=== PATIENT | male | born 1945 | race Caucasian/White ===

== ENCOUNTER 2020-02-11 22:37 | Observation (INO) | payer OTHER, SELFPAY ==
--- NOTE | ~2020-02-11 | CT_ITS ---
EXAMINATION: CT lumbar spine wo con, CT pelvis wo con DATE: 02/11/2020 23:13 INDICATION: Chronic low back pain since fall 2-3 months prior TECHNIQUE: 1. Computed tomography (CT) of the lumbar spine was performed without intravenous contrast. Automated exposure control and iterative reconstruction technique were employed. The dose-length product was 1 548.03 mGy-cm. 2. CT of the pelvis was performed without intravenous contrast. Automated exposure control and iterat vicente reconstruction technique were employed. The dose length product was 1130.46 mGy-cm. COMPARISON: None FINDINGS: Pelvis: Bone alignment is normal. Mild osteoarthritis at the bilateral hips and mild to moderate osteoarthrit is at the bilateral sacroiliac joints. There are likely degenerative small chronic appearing ossicles along the anterior margin of the right sacroiliac joint as well as along the posterior rim of the ri ght acetabulum with corticated margins to the adjacent bones with no appreciable donor site to sugges t acute fracture. No acute fractures identified. No hip joint effusions or evident hematomas in the p albina. Small fat-containing umbilical hernia. The appendix and visualized portions of the bowels are normal. Bladder is normal. Scattered vascular calcifications in the pelvis and proximal thighs. Skin thickening and subcutaneous edema along the anterior lower pelvic and is consistent with cellulitis. No pathologically enlarged pelvic or inguinal lymphadenopathy. Lumbar spine: Alignment is normal. Chronic mild anterior wedging at T12. Additional chronic appearing Schmorl's nod e/focal mild superior endplate compression fracture at the right anterior side of the L1 vertebral cuco dy. Moderate to severe disc height loss at T11-T12, L2-L3 and L5-S1, moderate disc height loss at T12 -L1 and L1-L2 and mild disc height loss at L2-L3 and L4-L5. The following disc levels are specificall y discussed: T11-T12: Disc is bulging. There is moderate bilateral facet joint osteoarthritis. There is mild bilat eral neural foraminal stenosis. There is mild central canal stenosis. T12-L1: Disc is mildly bulging. There is moderate left and mild right facet joint osteoarthritis. The re is mild right and minimal left neural foraminal stenosis. There is mild central canal stenosis. L1-L2: Disc is bulging. There is mild left and moderate right facet joint osteoarthritis. There is mi ld bilateral neural foraminal stenosis. There is mild central canal stenosis. L2-L3: Posterior disc osteophyte complex including subtle calcification at the periphery of a likely disc extrusion posterior to the inferior aspect of the L2 vertebral body. There is mild bilateral fac et joint osteoarthritis. There is moderate bilateral neural foraminal stenosis. There is moderate to severe central canal stenosis. L3-L4: Disc is bulging. There is severe right and moderate left facet joint osteoarthritis. There is moderate bilateral neural foraminal stenosis. There is severe central canal stenosis. L4-L5: Disc is bulging. There is moderate left and severe right facet joint osteoarthritis. There is moderate bilateral neural foraminal stenosis. There is severe central canal stenosis. L5-S1: Posterior disc osteophyte complex. There is severe right and moderate left facet joint osteoar thritis. There is moderate to severe right and mild to moderate left neural foraminal stenosis. There is mild to moderate central canal stenosis. IMPRESSION: 1. Severe lumbar spondylosis and chronic Schmorl's node/focal superior endplate compression fracture at L1. No acute osseous abnormality. 2. Polyarticular osteoarthritis, mild at the bilateral hips and mild to moderate at the bilateral sac roiliac joints. Reviewed, dictated and finalized at location A. Electronically signed by Mike Gasca M.D.
--- NOTE | ~2020-02-11 | US_ITS ---
EXAMINATION: US venous doppler LE EXAM DATE: 02/14/2020 17:44 INDICATION: Bilateral leg swelling. TECHNIQUE: Multiple grayscale, color flow and Doppler images of the lower extremity deep venous syste ms bilaterally were obtained and reviewed. Comparison is made to prior examination from 07/03/2013. Co rrelation was made with CT abdomen pelvis 02/11/2020. FINDINGS: Right side: The right common femoral, femoral and profunda veins demonstrate normal color flow, respi ratory variation, augmentation and compressibility. Compressibility, color flow confirmed within the right popliteal, posterior tibial, peroneal, and greater saphenous veins. Left side: The left common femoral, femoral and profunda veins demonstrate normal color flow, respira tory variation, augmentation and compressibility. Compressibility, color flow confirmed within the l eft popliteal, posterior tibial, peroneal, and greater saphenous veins. Superficial to the left mid femoral vein there is a complex heterogeneous partially cystic avascular region measuring 3.7 x 1.8 x 2.9 cm. Appearance most consistent with hematoma. This region may not have been imaged on the pelvic CT. IMPRESSION: 1. No lower extremity deep venous thrombosis bilaterally. 2. Superficial left mid thigh partially cystic region most likely focal hematoma. Reviewed, dictated and finalized at location A. IMPRESSION: 1. No lower extremity deep venous thrombosis bilaterally. 2. Superficial left mid thigh partially cystic region most likely focal hemato ma.
[2020-02-11 22:36] VITALS: BP 236/97; PULSE 99; RESP 22; TEMP 36.8; O2SAT 96
--- NOTE | 2020-02-11 23:18 | ED.BACK ---
HPI - Back Pain/Injury General Chief Complaint: Back Pain/Injury Stated Complaint: back pain x 2 months Time Seen by Provider: 02/11/20 22:45 Source: patient and RN notes reviewed (Disagree with timing of patient's back pain) Mode of arrival: EMS Limitations: no limitations History of Present Illness HPI Narrative: Patient is a 74-year-old male who presents to the emergency department with complaints of low back pain. Patient reports sustaining a fall from a chair to the floor in late November for which he saw his primary care physician and was on pain medication for short period of time. Patient reports after a few days the pain stopped bothering him and he noted to be symptom-free through the months of December and January without any back pain. Patient reports recurrence of his back pain starting 2 days ago when he was getting up from a chair. Patient locates the pain in the low portion of his back down towards the pelvis with radiation of pain into his hips. Patient states he only notices the pain when he is in a standing/weightbearing position. Patient states he does not have any pain if he is sitting or lying down. Patient has a walker at home from his prior knee replacement surgeries that he has attempted to use to help with ambulation, but states he cannot ambulate even with a walker as he feels as though his knees are going to give out on him and the pain is rather tremendous. Patient reports it took several paramedics to get him out of the house and into the ambulance. Patient is rather obese. Currently patient is denying any pain as he is lying in a semi-supine position on the stretcher. Patient denies any associated symptoms or recent illness. He denies any neurologic deficits or bowel or bladder dysfunction. MD elicited complaint: back pain Timing: intermittent Location: lumbar spine and sacrum Radiation: other (Bilateral hips) Exacerbating factors: other (Standing/ambulate) Relieving factors: supine, sitting upright and other (Nonweightbearing) Associated symptoms: denies other symptoms Related Data Home Medications Medication Instructions Recorded Confirmed allopurinol 300 mg PO DAILY 02/11/20 02/12/20 furosemide 20 mg PO DAILY 02/11/20 02/12/20 glipizide 10 mg PO BIDAC 02/11/20 02/12/20 hydralazine 25 mg PO DAILY 02/11/20 02/12/20 losartan 100 mg PO DAILY 02/11/20 02/12/20 metformin 1,000 mg PO BIDAC 02/11/20 02/12/20 metoprolol tartrate 50 mg PO TID 02/11/20 02/12/20 potassium chloride 20 meq PO BID 02/11/20 02/12/20 warfarin [Jantoven] 8 mg PO DAILY 02/11/20 02/12/20 ascorbate calcium-bioflavonoid 1 tablet PO DAILY 02/12/20 02/12/20 [[place]-C with Bioflavonoids] aspirin [Adult Low Dose Aspirin] 81 mg PO DAILY 02/12/20 02/12/20 Allergies Allergy/AdvReac Type Severity Reaction Status Date / Time amiodarone Allergy Severe Hives / Verified 04/25/13 13:43 Red Face Review of Systems Review of Systems: All systems reviewed & are unremarkable except as noted in HPI and below Constitutional: Constitutional: Denies fever(s) Gastrointestinal: Gastrointestinal: Denies abdominal pain and Denies fecal incontinence Genitourinary: Genitourinary: Denies oliguria and Denies urinary incontinence Musculoskeletal: Musculoskeletal: Reports back pain Neurologic: Denies focal weakness and Denies numbness PMFSH Past Medical History Medical History (Updated 02/12/20 @ 02:20 by Rachel Kelly MD) Arthritis Atrial fibrillation Diabetes mellitus DVT (deep venous thrombosis) Gout History of cardioversion Hypertension Surgical History Surgical History (Updated 02/11/20 @ 23:22 by Rachel Kelly MD) History of bilateral knee replacement Family History Family History (Updated 02/12/20 @ 02:07 by Kalli Mcallister RN) Father Hypertension Social History Social History (Updated 02/11/20 @ 23:24 by Rachel Kelly MD) Smoking status: Never smoker Alcohol intake: never Substance use: never
[2020-02-11 23:28] LABS: Basophils Absolute Auto 0.1 K/mm3 (0.0-0.1); Basophils Percent Auto 0.7 % (0.2-1.2); Eosinophils Absolute Auto 0.2 K/mm3 (0-0.3); Hemoglobin 17.5 g/dL (14.0-18.0); Immature Granulocyte Absolute 0.04 K/mm3 (0.00-0.031); Immature Granulocyte Percent A 0.6 % (0-0.5); Lymphocytes Absolute Auto 1.07 K/mm3 (0.9-3.2); Lymphocytes Percent Auto 15.9 % (18.3-44.2); Mean Corpuscular HGB Conc 34.3 g/dl (32-36); Mean Corpuscular Hemoglobin 33.2 pg (26-34); Mean Corpuscular Volume 96.8 fl (80-100); Mean Platelet Volume 9.7 fl (7.4-10.4); Monocytes Absolute Auto 0.4 K/mm3 (0.1-0.6); Monocytes Percent Auto 5.6 % (2.6-8.5); Neutrophils Percent Auto 74.2 % (45.5-73.1); Platelet Count Result 128 k/mm3 (150-375); Red Blood Count 5.27 M/mm3 (4.6-6.20); Red Cell Distribution Width 13.9 % (11.5-14.5); White Blood Count 6.7 K/mm3 (4.5-10.0)
[2020-02-11 23:39] LABS: INR 2.8; Prothrombin Time 28.9 Seconds (11.1-14.7)
[2020-02-11 23:40] LABS: Partial Thromboplastin Time 42.4 SECONDS (22.3-36.8)
[2020-02-11 23:43] LABS: Alanine Aminotransferase 20 U/L (4-50); Albumin Level 3.8 g/dL (3.5-5.1); Alkaline Phosphatase 49 U/L (38-126); Aspartate Amino Transferase 27 U/L (17-59); Bilirubin,Total 1.3 mg/dL (0.2-1.3); Blood Urea Nitrogen 12 mg/dL (9-20); CRP 1.2 mg/dL (<1.0); Calcium 8.5 mg/dL (8.4-10.2); Carbon Dioxide 25 mmol/L (22-30); Chloride 107 mmol/L (98-107); Estimated CRCL calculation 110 ml/min; Estimated Glomerular Filt Rate > 60; Glucose 141 mg/dL (75-110); Potassium 3.4 mmol/L (3.4-5.0); Sodium 141 mmol/L (137-145)
--- NOTE | 2020-02-11 23:51 | PC.NURSE ---
Patient verbalized that he needed to urinate. Patient assisted to side of bed and assisted with urinal. Patient was then able to stand at edge of bed with no pain. Patient then assisted back into bed and boosted up. Patient became very SOB with minimal activity but recovered quickly. Patient took scheduled home med Metoprolol per verbal okay from Dr Kelly.
[2020-02-12] VITALS (7 sets, daily range): BP systolic 150–188; BP diastolic 74–117; PULSE 60–98; RESP 16–20; TEMP 36.2–36.8; O2SAT 92–98; BMI 55.4
[2020-02-12 00:38] LABS: Erythrocyte Sedimentation Rate 14 mm/hr (0-20)
--- NOTE | 2020-02-12 00:58 | PC.NURSE ---
states she is unsure if patient's med list is correct, will bring info from home tomorrow morning.
--- NOTE | 2020-02-12 01:40 | PC.NURSE ---
Patient stable upon transfer to floor, report given to Renata. Patient denies any questions.
[2020-02-12 01:52] LABS: Add Urine Microscopic? YES; Appearance Urine Clear (Clear); Bilirubin Urine Negative (Negative); Blood Urine 2+ (Negative); Color Urine Straw (Yellow); Glucose Urine UA Negative (Negative); Ketones Urine Negative (Negative); Leukocyte Esterase Ur Negative LEU/UL (Negative); Mucus Urine Rare /lpf; Nitrate Urine Negative (Negative); Protein Urine 1+ mg/dL (Negative); RBC Urine >75 /hpf (0-2); Specific Grav Ur 1.012 (1.001-1.035); Urobilinogen Urine Negative mg/dL (<2.0); WBC Urine 0-3 /hpf
--- NOTE | 2020-02-12 01:58 | ADMGEN ---
This patient, Kirill Fletcherdig, was admitted to Medical Room 241-01. Patient/family oriented to hospital policies and general routines including ID bracelet, bed and alarms, visiting hours, pain management, procedures, bathroom and other care routines, personal items, smoking policy, room service/diet, and visiting hours. Valuables list has been completed. Information on how to activate the Rapid Response Team has been discussed. Patient/Family are encouraged to report perceived risks to care and to ask questions if they do not understand what they are told or what they should do.
--- NOTE | 2020-02-12 04:31 | PM.IMHP ---
H&P: HPI History of Present Illness Chief complaint: low back pain Narrative: Date and time of patient contact: 02/12/2020 at 3:45 a.m. Kirill Cardoso is a 74 year old male with a past medical history of morbid obesity, type 2 diabetes mellitus, atrial fibrillation on chronic anticoagulation, and hypertension who presented to the ER via EMS due to 3 days of low back pain. The patient reports that he fell in November and had similar back pain that lasted about 10 days. At that time he received medications for the pain and his symptoms resolved. However on Wednesday when he stood up from a chair E notice some mild nagging pain in his low back. Later that day when he went to the bathroom and went to stand up from the commode he noticed that the pain was radiating down into his hips. The next day when he went to stand up straight he noticed the stretching sensation in his low back and his pain was more intense. He started using a walker that he had around the house from 14 years ago when he had his 2nd knee replacement surgery. On Wednesday, he ambulated to the bathroom and noticed that his legs felt weaker. When he went to leave the bathroom his legs became so weak that he almost fell. At that time he decided to come to the ER for further evaluation. The patient states that the pain only occurs when he is load-bearing. He is not having pain when he is sitting, moving, stretching or twisting. He does have some discomfort if he tries to lift his legs up off the bed. He denies any loss of bowel or bladder control. He was having some difficulty with dribbling with urination in the past but this was resolved after he was started on medications for BPH. Patient reports that the pain is back feels as if it is deep. He does not think that it is muscle pain. He indicates that the pain is low when his back (level of L5-S1). He denies significant tenderness to palpation. He denies any paresthesias. The patient reports that otherwise he has felt in his usual health. He denies any dyspnea on exertion. He does snore but reports that he does not snore as much as he used to because he sleeps sitting up on the couch. He has been sleeping on the couch for quite a long time. He does have chronic lymphedema in uses compression devices every day. Source of information: Past medical records and patient report. The patient is only a fair historian. He denied but having diabetes despite being on to oral diabetic medications. He denied having obstructive sleep apnea but I found a sleep study report from 2009 by the patient did not adequately achieve appropriate titration of BiPAP therapy and was recommended to return for a repeat study. Review of Systems Review of Systems: Narrative: 12 systems were reviewed with pertinent positives and negatives per HPI. Except as documented in the HPI, all other systems were reviewed and are negative. [facility] Past Medical History Medical History (Updated 02/12/20 @ 06:52 by Roxana Lynch DO) Arthritis Atrial fibrillation Since 2009; on chronic anticoagulation with Coumadin His services clerk is Dr. Christopher Diabetes mellitus On oral meds DVT (deep venous thrombosis) Of the right lower extremity in 2000 Gout Hard of hearing History of BPH History of cardioversion Hypertension Lymphedema of both lower extremities Obstructive sleep apnea Sleep study in 2009 with inadequate titration of CPAP and bilevel support due to poor sleep efficacy. The patient never went back for repeat sleep study. He sleeps sitting up on the couch. Surgical History Surgical History (Updated 02/12/20 @ 06:41 by Roxana Lynch DO) History of bilateral knee replacement Left total knee replacement in 1999 right total knee replacement May 2006 Family History Family History (Updated 02/12/20 @ 06:42 by Roxana Lynch DO) Father , At age 69 Acute myocardial infarction Mother , In her 80s Cerebral ane
[2020-02-12] MEDS: metFORMIN HCL 500 MG TABLET 1000 MG PO ×2 (06:35→17:26)
[2020-02-12] MEDS: glipiZIDE 5 MG TABLET 10 MG PO ×2 (06:35→17:25)
[2020-02-12] MEDS: FUROSEMIDE 20 MG TABLET PO (10:11)
[2020-02-12] MEDS: allopurinoL 300 MG TABLET PO (10:11)
[2020-02-12] MEDS: ASPIRIN 81 MG ENTERIC TABLET PO (10:11)
[2020-02-12] MEDS: METOPROLOL TARTRATE 50 MG TAB PO ×3 (10:11→21:11)
[2020-02-12] MEDS: POTASSIUM CHLORIDE 20 MEQ TABLET.ER PO ×2 (10:11→17:26)
[2020-02-12] MEDS: LOSARTAN POTASSIUM 100 MG TABLET PO (10:11)
[2020-02-12 12:04] LABS: Basophils Absolute Auto 0.1 K/mm3 (0.0-0.1); Basophils Percent Auto 0.5 % (0.2-1.2); Eosinophils Absolute Auto 0.2 K/mm3 (0-0.3); Eosinophils Percent Auto 2.2 % (0-4.4); Hemoglobin 18.1 g/dL (14.0-18.0); Immature Granulocyte Absolute 0.05 K/mm3 (0.00-0.031); Immature Granulocyte Percent A 0.5 % (0-0.5); Immature Platelet Fraction Pct 2.4 % (0.9-11.2); Lymphocytes Percent Auto 15.1 % (18.3-44.2); Mean Corpuscular HGB Conc 34.2 g/dl (32-36); Mean Corpuscular Hemoglobin 33.5 pg (26-34); Mean Corpuscular Volume 98.1 fl (80-100); Mean Platelet Volume 10.1 fl (7.4-10.4); Monocytes Absolute Auto 0.6 K/mm3 (0.1-0.6); Monocytes Percent Auto 6.6 % (2.6-8.5); Neutrophils Absolute Auto 6.9 K/mm3 (1.3-6.7); Neutrophils Percent Auto 75.1 % (45.5-73.1); Platelet Count Result 147 k/mm3 (150-375); Red Cell Distribution Width 14.1 % (11.5-14.5); White Blood Count 9.3 K/mm3 (4.5-10.0)
[2020-02-12 12:13] LABS: Alanine Aminotransferase 19 U/L (4-50); Albumin Level 3.8 g/dL (3.5-5.1); Alkaline Phosphatase 48 U/L (38-126); Aspartate Amino Transferase 28 U/L (17-59); Bilirubin,Total 2.1 mg/dL (0.2-1.3); Blood Urea Nitrogen 10 mg/dL (9-20); Calcium 8.3 mg/dL (8.4-10.2); Carbon Dioxide 24 mmol/L (22-30); Chloride 107 mmol/L (98-107); Estimated CRCL calculation 121 ml/min; Estimated Glomerular Filt Rate > 60; Glucose 100 mg/dL (75-110); Potassium 3.2 mmol/L (3.4-5.0); Sodium 139 mmol/L (137-145)
--- NOTE | 2020-02-12 13:43 | PM.IMPN ---
Progress Note: A&P Assessment and Plan (1) Low back pain: Qualifiers: Back pain laterality: midline Chronicity: acute Sciatica presence: unspecified whether sciatica present Qualified Code(s): M54.5 - Low back pain Code(s): M54.5 - Low back pain Status: Acute Assessment and Plan: The CT of the lumbar spine did suggest moderate to severe central canal stenosis in the lower lumbar spine with moderate right and mild left neural foraminal narrowing at L5-S1 and bilateral neural foraminal narrowing L4-L5. Pain appears to be consistent with neurogenic claudication. Will attempt MRI to further evaluate the patient's lumbar spine. In order to obtain MRI here, patient will need to walk 20 feet from hallway to exam table. At this time, he does not feel he could complete this task. Additionally there are safety concerns and fall risk to consider. PT and OT have been consulted for assessment and recommendations. Continue fall precautions His pain is well controlled presently and he denies need for pain medication. I spoke with neurosurgeon Dr. Dietz who believes patients back pain is related to obesity. He recommends TLSO brace and outpatient kyphoplasty. He will also likely need some kind of rehab placement as I do not believe he will be able to safely return home given his immobility. Will discuss with care coordination. (2) Hypertension: Code(s): I10 - Essential (primary) hypertension Status: Acute Assessment and Plan: Blood pressure evaluated today and mildly elevated at 160/88. Elevation may be related to pain. Continue Losartan and metoprolol (3) Atrial fibrillation: Code(s): I48.91 - Unspecified atrial fibrillation Status: Acute Assessment and Plan: Patient has history of A-fib on coumadin. INR 2.8 on presentation Continue coumadin Continue to monitor PT/INR (4) Diabetes mellitus: Code(s): E11.9 - Type 2 diabetes mellitus without complications Status: Acute Assessment and Plan: Blood sugars evaluated today and is well controlled. Last A1c unknown. Begin Accuchecks ACHS, moderate dose SSI, and hypoglycemia protocol Continue glipizide and metformin Will obtain A1c (5) Obstructive sleep apnea: Code(s): G47.33 - Obstructive sleep apnea (adult) (pediatric) Status: Acute Assessment and Plan: Patient reports a history of sleep apnea but does not use CPAP. Per chart review, he has been recommended to do a repeat sleep study but has not undergone. He sleeps sitting up in a couch or recliner at home He will benefit from outpatient formal sleep study (6) Lymphedema of both lower extremities: Code(s): I89.0 - Lymphedema, not elsewhere classified Status: Acute Assessment and Plan: Patient has a history of lymphedema. His has dropped off his compressive pump device which he will continue to use Continue compression therapy Subjective Date/time seen: 02/12/20 13:44 Interval history: Date of service: 02/12/2020 Mr. Cardoso reports he is feeling well today. He is resting comfortably at this time. He describes back pain which he rates as 9/10 when he is standing up or bearing weight. When he is sitting, he rates as a 1/10. Pain is in the midline lower back and radiates laterally to the bilateral hips. The buttocks and legs are unaffected. He denies weakness, numbness or tingling in his legs. He denies loss of bowel or bladder function. He reports full sensation of his lower extremities. He is able to transfer to the bedside commode. He typically ambulates without difficulty but at this time does not feel that he would be able to walk due to severe pain. He denies cough, shortness of breath, or chest pain. He does endorse some chronic post-nasal drainage. He denies abdominal pain. He denies bleeding or bruising. His appetite has been good. Review of Systems Review of Syste
[2020-02-12 17:10] LABS: Glucose Point of Care 126 (65-105)
[2020-02-12] MEDS: WARFARIN (*PBKC) 4 MG TABLET 8 MG PO (17:46)
--- NOTE | 2020-02-12 18:26 | PC.NURSE ---
Martha notified of need for back brace. They have come to fit the patient and will deliver the brace tomorrow 02/13/20.
[2020-02-12 20:29] LABS: Glucose Point of Care 125 (65-105)
[2020-02-12] MEDS: POTASSIUM CHLORIDE 20 MEQ TABLET 40 MEQ PO (21:10)
[2020-02-13 06:00] VITALS: BP 180/90; PULSE 91; RESP 22; TEMP 36.5; O2SAT 93
[2020-02-13] MEDS: metFORMIN HCL 500 MG TABLET 1000 MG PO ×2 (06:24→16:25)
[2020-02-13] MEDS: glipiZIDE 5 MG TABLET 10 MG PO ×2 (06:24→16:25)
[2020-02-13 07:53] LABS: Glucose Point of Care 94 (65-105)
[2020-02-13 07:54] LABS: Alanine Aminotransferase 21 U/L (4-50); Alkaline Phosphatase 44 U/L (38-126); Aspartate Amino Transferase 43 U/L (17-59); Bilirubin,Total 2.3 mg/dL (0.2-1.3); Blood Urea Nitrogen 10 mg/dL (9-20); Calcium 8.4 mg/dL (8.4-10.2); Carbon Dioxide 27 mmol/L (22-30); Chloride 105 mmol/L (98-107); Estimated CRCL calculation 121 ml/min; Estimated Glomerular Filt Rate > 60; Glucose 96 mg/dL (75-110); Potassium 3.7 mmol/L (3.4-5.0); Sodium 139 mmol/L (137-145)
--- NOTE | 2020-02-13 08:51 | PM.IMPN ---
Progress Note: A&P Assessment and Plan (1) Low back pain: Qualifiers: Back pain laterality: midline Chronicity: acute Sciatica presence: unspecified whether sciatica present Qualified Code(s): M54.5 - Low back pain Code(s): M54.5 - Low back pain Status: Acute Assessment and Plan: The CT of the lumbar spine did suggest moderate to severe central canal stenosis in the lower lumbar spine with moderate right and mild left neural foraminal narrowing at L5-S1 and bilateral neural foraminal narrowing L4-L5. Pain appears to be consistent with neurogenic claudication. The patient was able to ambulate with PT today and does feel that his confidence is improving. He continues to endorse pain with ambulation. Dr. Dietz with neurosurgery was contacted and suspects this is related to his obesity. He will need to work with his PCP on weight loss and would benefit from a referral to bariatric surgery for further consideration. He recommends TLSO brace and outpatient kyphoplasty. He will need to follow-up with Dr. Dietz outpatient. He will need to implement lifestyle changes for weight loss. MRI has been recommended but there are safety concerns including fall risk with transitioning to the MRI table and the positioning required for the MRI. I discussed the requirement for transfer to the MRI table with PT who also expresses concern in his ability to complete this at this time. I discussed his case with Dr. Dietz who will see him outpatient for further imaging and workup including possible open MRI. Continue PT/OT Continue fall precautions Will add tylenol and tramadol PRN for pain The patient will need PT/OT at discharge (2) Hypertension: Code(s): I10 - Essential (primary) hypertension Status: Acute Assessment and Plan: Blood pressures were reviewed and are elevated. I suspect that this may be due to pain and he expresses that he has been very stressed about everything going on. Continue losartan Continue metoprolol Resume hydralazine Continue to monitor (3) Atrial fibrillation: Code(s): I48.91 - Unspecified atrial fibrillation Status: Chronic Assessment and Plan: Patient has history of A-fib and is on coumadin. INR 2.8 on 02/10 Continue coumadin Continue to monitor PT/INR (4) Diabetes mellitus: Code(s): E11.9 - Type 2 diabetes mellitus without complications Status: Chronic Assessment and Plan: Blood sugars were evaluated and are stable. FBS is 94. A1C is 6.0. Continue ACHS, moderate dose SSI, and hypoglycemia protocol Continue glipizide and metformin (5) Obstructive sleep apnea: Code(s): G47.33 - Obstructive sleep apnea (adult) (pediatric) Status: Chronic Assessment and Plan: Patient reports a history of sleep apnea but does not use CPAP. Per chart review, a sleep study has been recommended but not completed at this time. Recommend formal outpatient sleep study (6) Lymphedema of both lower extremities: Code(s): I89.0 - Lymphedema, not elsewhere classified Status: Chronic Assessment and Plan: Patient has a history of lymphedema. Continue intermittent pneumatic compression therapy and graded compression stockings Subjective Date/time seen: 02/13/20 08:51 Interval history: Mr. Cardoso is seen and examined at bedside in follow-up for low back pain. He reports that he is comfortable while resting or sitting in the chair and he did not have any pain overnight while sleeping. He describes profound sharp pain when he stands up in the low back and hips. He reports that he is fearful of walking due to the pain when he stands. He denies radiating pain into the legs. He denies loss of or change in bladder or bowel function. He denies numbness. He denies fever, chills, nausea, vomiting, SOB, cough, and chest pain. He denies dizziness, lightheadedness, and headaches. He has no o
[2020-02-13 08:53] VITALS: PULSE 70
[2020-02-13] MEDS: allopurinoL 300 MG TABLET PO (08:53)
[2020-02-13] MEDS: FUROSEMIDE 20 MG TABLET PO (08:53)
[2020-02-13] MEDS: ASPIRIN 81 MG ENTERIC TABLET PO (08:53)
[2020-02-13] MEDS: POTASSIUM CHLORIDE 20 MEQ TABLET.ER PO ×2 (08:53→16:25)
[2020-02-13] MEDS: METOPROLOL TARTRATE 50 MG TAB PO ×3 (08:53→20:23)
[2020-02-13] MEDS: LOSARTAN POTASSIUM 100 MG TABLET PO (08:54)
[2020-02-13 11:25] LABS: Glucose Point of Care 78 (65-105)
[2020-02-13 13:30] VITALS: BP 166/103; PULSE 90; RESP 20; TEMP 36.9; O2SAT 96
[2020-02-13 13:48] VITALS: PULSE 82
[2020-02-13] MEDS: hydrALAZINE HCL 25 MG TABLET PO (13:48)
[2020-02-13] MEDS: WARFARIN (*PBKC) 4 MG TABLET 8 MG PO (16:25)
[2020-02-13 16:30] LABS: Glucose Point of Care 105 (65-105)
[2020-02-13 20:00] VITALS: BP 168/97; PULSE 91; RESP 22; TEMP 36.1; O2SAT 98
[2020-02-13 22:27] LABS: Glucose Point of Care 118 (65-105)
[2020-02-13] MEDS: MELATONIN 3 MG TABLET PO (22:58)
[2020-02-14] VITALS (11 sets, daily range): BP systolic 121–187; BP diastolic 73–103; PULSE 74–110; RESP 16–22; TEMP 36.1–36.7; O2SAT 97–98
[2020-02-14] MEDS: MELATONIN 3 MG TABLET PO (00:32)
[2020-02-14 04:59] LABS: Hematocrit 51.9 % (42.0-52.0); Hemoglobin 17.6 g/dL (14.0-18.0); Immature Platelet Fraction Pct 2.5 % (0.9-11.2); Mean Corpuscular HGB Conc 33.9 g/dl (32-36); Mean Corpuscular Hemoglobin 33.5 pg (26-34); Mean Corpuscular Volume 98.7 fl (80-100); Mean Platelet Volume 10.4 fl (7.4-10.4); Platelet Count Result 139 k/mm3 (150-375); Red Blood Count 5.26 M/mm3 (4.6-6.20); Red Cell Distribution Width 14.1 % (11.5-14.5); White Blood Count 6.7 K/mm3 (4.5-10.0)
[2020-02-14] MEDS: hydrALAZINE HCL 50 MG TABLET PO ×3 (05:22→21:04)
[2020-02-14 06:05] LABS: Alanine Aminotransferase 22 U/L (4-50); Albumin Level 3.9 g/dL (3.5-5.1); Alkaline Phosphatase 36 U/L (38-126); Aspartate Amino Transferase 48 U/L (17-59); Bilirubin,Total 2.1 mg/dL (0.2-1.3); Blood Urea Nitrogen 13 mg/dL (9-20); Calcium 8.2 mg/dL (8.4-10.2); Carbon Dioxide 25 mmol/L (22-30); Chloride 105 mmol/L (98-107); Estimated CRCL calculation 121 ml/min; Estimated Glomerular Filt Rate > 60; Glucose 110 mg/dL (75-110); Potassium 3.4 mmol/L (3.4-5.0); Sodium 138 mmol/L (137-145)
[2020-02-14 07:13] LABS: Free T4 Free Thyroxine Reflex 1.26 ng/dL (0.78-2.19)
[2020-02-14 07:49] LABS: Glucose Point of Care 109 (65-105)
[2020-02-14 07:57] LABS: INR 2.4
[2020-02-14 08:14] LABS: Total Triiodothyronine (T3) 1.37 NG/ML (0.97-1.69)
[2020-02-14] MEDS: TRAMADOL HCL 50 MG TABLET PO ×3 (08:38→17:31)
[2020-02-14] MEDS: METOPROLOL TARTRATE 50 MG TAB PO ×3 (08:38→21:04)
[2020-02-14] MEDS: allopurinoL 300 MG TABLET PO (08:39)
[2020-02-14] MEDS: metFORMIN HCL 500 MG TABLET 1000 MG PO ×2 (08:39→17:32)
[2020-02-14] MEDS: glipiZIDE 5 MG TABLET 10 MG PO ×2 (08:39→17:32)
[2020-02-14] MEDS: POTASSIUM CHLORIDE 20 MEQ TABLET.ER PO ×2 (08:39→17:32)
[2020-02-14] MEDS: LOSARTAN POTASSIUM 100 MG TABLET PO (08:39)
[2020-02-14] MEDS: ASPIRIN 81 MG ENTERIC TABLET PO (08:39)
[2020-02-14] MEDS: FUROSEMIDE 20 MG TABLET PO (08:39)
--- NOTE | 2020-02-14 10:13 | PCPTNOTE ---
Instructed Pt on donning and doffing TSLO brace. Pt requested Brace to be donned while sitting EOB. Pt then stood with CGA. Pt was able to stand SBA while Therapist adjusted brace. Pt demonstrated good standing balance during static standing for brace adjustment.
[2020-02-14 11:22] LABS: Glucose Point of Care 90 (65-105)
--- NOTE | 2020-02-14 12:06 | PCDIET ---
Physician Consult for weight loss. Spoke with patient today over the phone due to COVID 19 precautions. See Nutritional Teaching Intervention. Patient instruction is attached. thank you for the consult.
--- NOTE | 2020-02-14 15:08 | PM.IMPN ---
Progress Note: A&P Assessment and Plan (1) Low back pain: Qualifiers: Back pain laterality: midline Chronicity: acute Sciatica presence: unspecified whether sciatica present Qualified Code(s): M54.5 - Low back pain Code(s): M54.5 - Low back pain Status: Acute Assessment and Plan: The CT of the lumbar spine did suggest moderate to severe central canal stenosis in the lower lumbar spine with moderate right and mild left neural foraminal narrowing at L5-S1 and bilateral neural foraminal narrowing L4-L5. Pain appears to be consistent with neurogenic claudication. He continues to have pain with ambulation and was not taking his PRN pain medications since he does not have pain at rest. Dr. Dietz with neurosurgery was contacted and suspects this is related to his obesity. He will need to work with his PCP on weight loss and would benefit from a referral to bariatric surgery for further consideration. He recommends TLSO brace and outpatient kyphoplasty. He will need to follow-up with Dr. Dietz outpatient. He will need to implement lifestyle changes for weight loss. MRI has been recommended but there are safety concerns including fall risk with transitioning to the MRI table and the positioning required for the MRI. I discussed the requirement for transfer to the MRI table with PT who also expresses concern in his ability to complete this at this time. I discussed his case with Dr. Dietz who will see him outpatient for further imaging and workup. Dr. Dietz's office has recommended that his PCP order the open MRI. I will discuss this with his PCP. Continue PT/OT Continue fall precautions Begin tramadol scheduled for pain, titrate up as needed The patient will need PT/OT at discharge (2) Hypertension: Code(s): I10 - Essential (primary) hypertension Status: Acute Assessment and Plan: Blood pressures were reviewed and are elevated, likely due to pain. Hydralazine was added by the cardboard inserter and BP has been better controlled today. Continue losartan Continue metoprolol Continue hydralazine Continue to monitor (3) Atrial fibrillation: Code(s): I48.91 - Unspecified atrial fibrillation Status: Chronic Assessment and Plan: Patient has history of A-fib and is on coumadin. INR is therapeutic today at 2.4. PT is 26.0. Continue coumadin Continue to monitor PT/INR (4) Diabetes mellitus: Code(s): E11.9 - Type 2 diabetes mellitus without complications Status: Chronic Assessment and Plan: Blood sugars were evaluated and are stable. FBS is 94. A1C is 6.0. Continue ACHS, moderate dose SSI, and hypoglycemia protocol Continue glipizide and metformin (5) Obstructive sleep apnea: Code(s): G47.33 - Obstructive sleep apnea (adult) (pediatric) Status: Chronic Assessment and Plan: Patient reports a history of sleep apnea but does not use CPAP. Per chart review, a sleep study has been recommended but not completed at this time. Recommend formal outpatient sleep study (6) Lymphedema of both lower extremities: Code(s): I89.0 - Lymphedema, not elsewhere classified Status: Chronic Assessment and Plan: Patient has a history of lymphedema. Continue intermittent pneumatic compression therapy and graded compression stockings Will order venous doppler as he reported some discomfort in his LLE. This discomfort improved with his intermittent pneumatic device so I have low suspicion for DVT. (7) Elevated bilirubin: Code(s): R17 - Unspecified jaundice Status: Acute Assessment and Plan: Total bilirubin was elevated at 2.1 with indirect bilirubin elevated at 2.0. He has no sx including no abdominal pain, nausesa, vomiting, or anorexia. TSH was WNL. I suspect Gilbert's syndrome. Continue to monitor Plan for repeat CMP outpatient Subjective Date/time seen: 02/14/20 15:0
[2020-02-14 16:17] LABS: Glucose Point of Care 110 (65-105)
[2020-02-14] MEDS: WARFARIN (*PBKC) 4 MG TABLET 8 MG PO (17:33)
[2020-02-14] MEDS: GABAPENTIN 300 MG CAPSULE PO (21:03)
[2020-02-14 21:17] LABS: Glucose Point of Care 109 (65-105)
[2020-02-15] MEDS: TRAMADOL HCL 50 MG TABLET PO ×3 (00:11→11:58)
[2020-02-15 02:00] VITALS: BP 181/95; PULSE 89; RESP 20; TEMP 36.1; O2SAT 96
[2020-02-15 03:12] LABS: Glucose Point of Care 111 (65-105)
[2020-02-15 05:32] LABS: Hematocrit 53.5 % (42.0-52.0); Hemoglobin 18.1 g/dL (14.0-18.0); Immature Platelet Fraction Pct 2.6 % (0.9-11.2); Mean Corpuscular HGB Conc 33.8 g/dl (32-36); Mean Corpuscular Hemoglobin 33.6 pg (26-34); Mean Corpuscular Volume 99.4 fl (80-100); Mean Platelet Volume 10.5 fl (7.4-10.4); Platelet Count Result 139 k/mm3 (150-375); Red Blood Count 5.38 M/mm3 (4.6-6.20); Red Cell Distribution Width 14.5 % (11.5-14.5); White Blood Count 6.3 K/mm3 (4.5-10.0)
[2020-02-15 05:37] LABS: Alanine Aminotransferase 23 U/L (4-50); Albumin Level 3.9 g/dL (3.5-5.1); Alkaline Phosphatase 46 U/L (38-126); Aspartate Amino Transferase 44 U/L (17-59); Blood Urea Nitrogen 14 mg/dL (9-20); Calcium 8.5 mg/dL (8.4-10.2); Carbon Dioxide 28 mmol/L (22-30); Chloride 105 mmol/L (98-107); Estimated CRCL calculation 121 ml/min; Estimated Glomerular Filt Rate > 60; Glucose 109 mg/dL (75-110); Potassium 3.2 mmol/L (3.4-5.0); Sodium 139 mmol/L (137-145)
[2020-02-15 05:54] VITALS: BP 156/98; PULSE 101; RESP 22; TEMP 36.1; O2SAT 97
[2020-02-15] MEDS: hydrALAZINE HCL 50 MG TABLET PO ×2 (06:16→15:19)
[2020-02-15] MEDS: glipiZIDE 5 MG TABLET 10 MG PO (06:17)
[2020-02-15] MEDS: metFORMIN HCL 500 MG TABLET 1000 MG PO (06:18)
--- NOTE | 2020-02-15 07:28 | PC.NURSE ---
Outpatient referral started for MNT. [facility] Dr[facility].
[2020-02-15 08:08] LABS: Glucose Point of Care 107 (65-105)
[2020-02-15 08:42] VITALS: PULSE 101
[2020-02-15] MEDS: ASPIRIN 81 MG ENTERIC TABLET PO (08:42)
[2020-02-15] MEDS: METOPROLOL TARTRATE 50 MG TAB PO ×2 (08:42→15:42)
[2020-02-15] MEDS: FUROSEMIDE 20 MG TABLET PO (08:42)
[2020-02-15] MEDS: allopurinoL 300 MG TABLET PO (08:43)
[2020-02-15] MEDS: POTASSIUM CHLORIDE 20 MEQ TABLET.ER PO (08:43)
[2020-02-15] MEDS: LOSARTAN POTASSIUM 100 MG TABLET PO (08:43)
[2020-02-15] MEDS: GABAPENTIN 300 MG CAPSULE PO (08:44)
[2020-02-15] MEDS: POTASSIUM CHLORIDE 20 MEQ TABLET 40 MEQ PO (08:44)
--- NOTE | 2020-02-15 09:27 | PCPTNOTE ---
Unable to be seen at this time due to patient using (B) LE lymphedema pumps.
[2020-02-15 10:00] VITALS: BP 157/88; PULSE 90; RESP 22; TEMP 36.4; O2SAT 93
--- NOTE | 2020-02-15 11:10 | PM.DS ---
DS: Diagnosis Admitting Diagnosis Admitting Diagnosis: Low back pain Discharge Diagnosis (1) Low back pain: Qualifiers: Back pain laterality: midline Chronicity: acute Sciatica presence: unspecified whether sciatica present Qualified Code(s): M54.5 - Low back pain Code(s): M54.5 - Low back pain Status: Acute Assessment and Plan: HOSPITAL COURSE Date of Service 02/15/2020. Mr. Cardoso is a 74 y.o. male with PMH significant for morbid obesity, atrial fibrillation on coumadin, diabetes mellitus, gout, lymphedema, hypertension, and arthritis who presented to the ED with low back pain. He sustained a fall in November and was treated outpatient with pain resolution. He reported the onset of recurrent back pain two days prior when he was getting up from a chair. The pain was in the lower lumbar region and hips with standing and weight-bearing. He reported no pain at rest. He had no complaints of numbness, radicular pain, and bowel or bladder dysfunction. He had no focal neurologic deficits. CT of the lumbar spine revealed degenerative changes with moderate to severe central canal stenosis in the lower lumbar spine with moderate right and mild left neural foraminal narrowing at L5-S1 and bilateral neural foraminal narrowing L4-L5. CBC and CMP were unremarkable. He was afebrile. Dr. Dietz with neurosurgery was contacted and suspects this is related to his obesity. He will need to work with his PCP on weight loss and would benefit from a referral to bariatric surgery for further consideration. Dr. Dietz recommended TLSO brace and outpatient kyphoplasty. He will need to follow-up with Dr. Dietz outpatient. He will need to implement lifestyle changes for weight loss. MRI was recommended but there are safety concerns including fall risk with transitioning to the MRI table and the positioning required for the MRI. I discussed the requirement for transfer to the MRI table with PT who also expressd concern in his ability to complete this at this time. I discussed his case with Dr. Dietz who will see him outpatient for further imaging and workup. Dr. Dietz's office has recommended that his PCP order an open MRI and have this sent to his office prior to his consultation. He progressed with PT/OT and his pain was managed with scheduled tramadol as he only has pain with ambulation so it was difficult to administer his pain medications PRN as he was unable to predict when he would need to get up. He was also treated with a topical lidocaine patch and low dose gabapentin. He wanted to continue PT/OT so he was discharged to [facility] in stable condition the afternoon of 02/14. (2) Hypertension: Code(s): I10 - Essential (primary) hypertension Status: Acute Assessment and Plan: Blood pressures were reviewed and were elevated so hydralazine was initiated. His other prior to admission antihypertensives were continued which included losartan and metoprolol. (3) Atrial fibrillation: Code(s): I48.91 - Unspecified atrial fibrillation Status: Chronic Assessment and Plan: He has a hx of atrial fibrillation on coumadin. INR was therapeutic at 2.4 02/13. Plan for repeat PT/INR at [place]. (4) Diabetes mellitus: Code(s): E11.9 - Type 2 diabetes mellitus without complications Status: Chronic Assessment and Plan: Blood sugars were evaluated and stable. Metformin and glipizide were continued. (5) Obstructive sleep apnea: Code(s): G47.33 - Obstructive sleep apnea (adult) (pediatric) Status: Chronic Assessment and Plan: The patient will need a formal outpatient sleep study as he is at high risk for sleep apnea. (6) Lymphedema of both lower extremities: Code(s): I89.0 - Lymphedema, not elsewhere classified Status: Chronic Assessment and Plan: Intermittent pneumatic compression therapy and graded compression stockings were co
[2020-02-15 11:55] LABS: Glucose Point of Care 103 (65-105)
[2020-02-15 13:19] LABS: Potassium 3.4 mmol/L (3.4-5.0)
[2020-02-15 14:00] VITALS: BP 150/85; PULSE 101; RESP 17; TEMP 36.3; O2SAT 93
[2020-02-15 15:42] VITALS: PULSE 101
== END 2020-02-15 16:35 | disposition swing bed (61) ==
LOC: ANHED 23:39 → ANH2MED 02-12 02:37
PROVIDERS: Physician Assistant; Admitting Provider Internal Medicine; Emergency Provider Emergency Medicine; PCP Family Medicine; Visit Provider Physician Assistant
DX: M54.5 Low back pain (principal); M51.47 Schmorl's nodes, lumbosacral region; M15.9 Polyosteoarthritis, unspecified; M47.816 Spondylosis without myelopathy or radiculopathy, lumbar region; E66.01 Morbid (severe) obesity due to excess calories; E11.9 Type 2 diabetes mellitus without complications; I48.91 Unspecified atrial fibrillation; I10 Essential (primary) hypertension; N40.0 Benign prostatic hyperplasia without lower urinary tract symptoms; G47.33 Obstructive sleep apnea (adult) (pediatric); N20.0 Calculus of kidney; I89.0 Lymphedema, not elsewhere classified; R17 Unspecified jaundice; Z79.01 Long term (current) use of anticoagulants; Z96.653 Presence of artificial knee joint, bilateral; M79.89 Other specified soft tissue disorders; Z68.43 Body mass index [BMI] 50.0-59.9, adult; Z86.718 Personal history of other venous thrombosis and embolism; Z79.84 Long term (current) use of oral hypoglycemic drugs
CPT/HCPCS: 36415; 72131; 72192; 80053; 81001; 82248; 83036; 84132; 84439; 84443; 84480; 85025; 85027; 85055; 85610; 85652; 85730; 86140; 93970; 97110; 97116; 97161; 97165; 97530; 97535; 99285; A9270; G0378

== ENCOUNTER 2020-05-23 09:16 | Outpatient (RCR) | payer OTHER, SELFPAY ==
[2020-05-23 09:18] VITALS: BMI 54.2
[2020-05-23 09:19] VITALS: BMI 54.2
== END 2020-08-21 23:59 | disposition home or self-care (01) ==
LOC: ANHDMC 09:16
PROVIDERS: Visit Provider Family Medicine
DX: E11.9 Type 2 diabetes mellitus without complications (principal); E66.01 Morbid (severe) obesity due to excess calories; Z68.43 Body mass index [BMI] 50.0-59.9, adult; Z71.3 Dietary counseling and surveillance
CPT/HCPCS: 97802

== ENCOUNTER 2020-07-05 14:00 | Outpatient (RCR) | payer OTHER, SELFPAY ==
--- NOTE | 2020-05-01 13:11 | PTOPEVAL ---
PHYSICAL THERAPY EVALUATION AND PLAN OF CARE 05-01-2020 The PT evaluation was completed for the diagnosis of B LE lymphedema. His plan of treatment is scheduled for 3x/week for 6 weeks. The order for increase mobility will be addressed after the lymphedema of his legs has decreased. Thank you for referring Mr. Cardoso to [facility]. Please review, sign, date and return this plan of care DAVE. I agree with and certify that the following plan of care is medically necessary. Referring Physician Date Attending Provider: Diego Tello MD *PT Outpatient Evaluation Start: 05/01/20 11:04 Document 05/01/20 11:00 OBDULIO (Rec: 05/01/20 12:11 OBDULIO [id number]) Outpatient Past Medical History Past Medical History Source of Past Medical History Patient,Family/Significant Other Neurological History Hx Neurological Disorders No Significant History Cardiovascular History Hx Atrial Fibrillation Yes Hx Deep Vein Thrombosis Yes: RIGHT LEG Hx Hypertension Yes Hx Other Cardiac Disorders Yes: LYMPHEDEMA Respiratory History Hx Respiratory Disorders No Significant History Gastrointestinal History Hx Gastrointestinal Disorders No Significant History Genitourinary History Hx Benign Prostatic Hyperplasia Yes Musculoskeletal History Hx Back Injury Yes Hx Back Pain Yes Hx Joint Replacement Yes: BILATERAL KNEES Hematological History Hx Hematological Disorders No Significant History Endocrine History Hx Diabetes Yes HEENT History Hx HEENT Disorders No Significant History Integumentary History Hx Skin Disorders No Significant History Reproductive History Hx Reproductive Disorders No Significant History Psychosocial History Hx Psychiatric Disorders No Significant History Pain History History of Any Previous or Ongoing No Significant History Instance of Pain Anesthesia History Hx Anesthesia Reactions No Significant History Evaluation Information Problem Diagnosis lymphedema B LE, decreased mobility Onset 02-12-20 Subjective Information hospitalized May due to fall Query Text:As Reported By Patient/ from back pain and back pain; Family then had [facility], discharged from [facility] ; MRI at hospital: severe lumbar spondylosis, compression fracture L1, mild B hip OA, moderate B SIJ OA; DVT negative for DVT; to see neurosurgeon May 14; have a back brace/ turtle shell, but not use due to too
--- NOTE | 2020-05-17 16:07 | PCPTNOTE ---
discussed pt with Donna Marie GRINDER SET UP OPERATOR JIG; pt is not progressing with his reduction. Will increase plan of treatment to 3-5 x/week for more aggressive treatment for his lymphedema.
--- NOTE | 2020-06-07 14:35 | PCPTNOTE ---
PROGRESS UPDATE of PT treatments: Mr. Cardoso has received a total of 18 PT sessions, from May 01 to today for the diagnosis of R and L LE lymphedema. The circumferential measurement of his L LE today is 964.5 cm., from the bottom of his foot, up 64 cm. From the initial evaluation has decreased 21.2 cm. During the treatment session, it did increase to 1018.1 cm. He had a urinary tract infection and was on antibiotics. The skin of his L LE has improved: only slight redness over lower leg with softer tissue and less edema over the top of his foot; the area of redness, raised and thick tissue over the dorsum of his foot- distal aspect is 6 cm x 3 cm. Toes and dorsum of foot with slight redness. Art continues to make progress, PT is to continue towards goals.
--- NOTE | 2020-06-12 15:26 | PTOPEVAL ---
PHYSICAL THERAPY RE-EVALUATION AND UPDATED PLAN OF CARE 06-12-2020 Art has received a total of 20 PT sessions, from May 01 to today, for the diagnosis of B LE lymphedema. Refer to the clinical summary section below for his improvements. He is scheduled to continue PT 3 x/week for 4 weeks. Thank you for referring Kirill Fletcherdiwillem to [facility].? Please review, sign, date and return this plan of care DAVE. I agree with and certify that the following plan of care is medically necessary. Referring Physician Date Attending Provider: Diego Tello MD *PT Outpatient Re-Evaluation Document 06/12/20 14:26 OBDULIO (Rec: 06/12/20 15:17 OBDULIO [id number]) Pain Assessment Timing of Pain Assessment Timing of Pain Assessment Assessment Pain Scale Pain Scale Used Numeric (1 - 10) Self Report Pain Assessment Bilateral Back Reported Pain Level 5 Pain Score Pain Score 5: Self Report Lower Extremity Range of Motion General Lower Extremity Range of Motion Gross Lower Extremity Range of Motion knee flexion R 105' and L 100' Comments ; Lower Extremity Muscle Strength Testing General Lower Extremity Strength Gross Lower Extremity Strength supine SLR R 20/ L 12 reps-- increase in back pain Bed Mobility Assessment Bed Mobility Supine to Sit Ability Independent Sit to Supine Ability Independent Cues Needed for Bed Mobility None Bed Mobility Comments good speed with supine/sit and moving legs; not labored Gait Assessment Gait Assessment Ambulation Assistive Devices Walker, Standard Ambulation Distance 20 Query Text:(Feet) Additional Ambulation Comments to dept in wheel chair, but able to ambulate short distance ~ 20' into the treatment room indep; sit/stand from wheel chair indep Lymphedema Evaluation Skin Inspection Location Left Lower Extremity,Right Lower Extremity Skin Observations Absence of Leg Hair,Dorsum Foot Swelling,Hyperkeratosis, Hyperpigmentation,Hyperplasia, Obesity,Obliteration of Skin Fold,Papillomas,Shiny, Dry, Pale Skin Tissue Texture Firm Lymphedema Stage II Tissue Adhesion Location compression wrap removed from L lower leg and compression garment from R lower leg; Skin Inspection Comment R LE: medial-distal thigh with slight redness and papillomas
--- NOTE | 2020-07-05 15:22 | PTOPEVAL ---
PHYSICAL THERAPY DISCHARGE 07-05-2020 Refer to the clinical summary for Art's status for discharge. Thank you for referring Mr. Cardoso to [facility].? Please review, sign, date and return this discharge summary DAVE. I agree with and certify that the following plan of care is medically necessary. Referring Physician Date Attending Provider: Diego Tello MD *PT Outpatient Discharge Document 07/05/20 14:01 OBDULIO (Rec: 07/05/20 15:22 OBDULIO [id number]) Subjective Information Art and his report: has Query Text:As Reported By Patient/ lost about 20#, watching his Family diet; doing the home pump daily, using the garments and doing self massage without any questions; has only worn the compression capris for a few hours, on one day only--they were comfortable and he will start to wear them regularly; they understand the garments, how to measure leg if there are any changes in size; agree to discharge from PT; Pain Assessment Timing of Pain Assessment Timing of Pain Assessment Assessment Self Report Self Report Pain Level 0 Pain Score Pain Score 0: Self Report Transfer Assessment Bed Transfer Assessment Bed Transfer Comments indep with sit/stand and supine/sit transfer; ambulate with walker indep 30' into treatment room; used wheelchair 100' to get to treatment area. Lymphedema Evaluation Skin Inspection Location Left Lower Extremity,Right Lower Extremity Skin Observations Hyperpigmentation,Shiny, Dry, Pale Skin Skin Inspection Comment L LE: L foot: area of red, thicker tissue over dorsum- inferior foot 6x 3 cm;top of toes red; medial- distal thigh with thick, red fibrotic tissue;; increase size medial and lateral malleoli--mobile tissue; remainder of L LE tissue normal color and no fibrotic tissue R LE: normal skin color; top of toes red and no fibrosis of tissue LE Circumferential Measurement Right LE Lymphedema Si
== END 2020-07-08 10:10 | disposition home or self-care (01) ==
LOC: ANHPT 14:00
PROVIDERS: Visit Provider Family Medicine
DX: I89.0 Lymphedema, not elsewhere classified (principal)
CPT/HCPCS: 29581; 97016; 97116; 97140; 97161

== ENCOUNTER 2020-12-25 12:30 | Outpatient (RCR) | payer OTHER, SELFPAY ==
--- NOTE | 2020-11-01 15:23 | PTOPEVAL ---
PHYSICAL THERAPY EVALUATION AND PLAN OF CARE 11-01-20 Thank you for referring Kirill Cardoso to [facility].? He is scheduled to be seen for therapy? 3 x/week for 4 weeks. Please review, sign, date and return this plan of care DAVE. I agree with and certify that the following plan of care is medically necessary. Referring Physician Date Attending Provider: DO Rob CoughlinPT Outpatient Evaluation Start: 11/01/20 14:08 Document 11/01/20 14:00 OBDULIO (Rec: 11/01/20 15:22 OBDULIO [id number]) Outpatient Past Medical History Past Medical History Source of Past Medical History Recalled from Previous Visit, Confirmed with Patient/Family Neurological History Hx Neurological Disorders No Significant History Cardiovascular History Hx Atrial Fibrillation Yes Hx Deep Vein Thrombosis Yes: RIGHT LEG Hx Hypertension Yes Hx Other Cardiac Disorders Yes: LYMPHEDEMA Respiratory History Hx Respiratory Disorders No Significant History Gastrointestinal History Hx Gastrointestinal Disorders No Significant History Genitourinary History Hx Benign Prostatic Hyperplasia Yes Musculoskeletal History Hx Back Injury Yes Hx Back Pain Yes: chronic back pain- ortho dr told him to lose 100# then return Hx Joint Replacement Yes: BILATERAL KNEES Hematological History Hx Hematological Disorders No Significant History Endocrine History Hx Diabetes Yes HEENT History Hx HEENT Disorders No Significant History Integumentary History Hx Skin Disorders No Significant History Reproductive History Hx Reproductive Disorders No Significant History Psychosocial History Hx Psychiatric Disorders No Significant History Pain History History of Any Previous or Ongoing No Significant History Instance of Pain Anesthesia History Hx Anesthesia Reactions No Significant History Evaluation Information Problem Diagnosis lymphedema B LE Onset September 2020 Prior Level of Function Activity Level (Last 3 Months) 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
--- NOTE | 2020-11-25 12:32 | PCPTNOTE ---
Patient called & cancelled scheduled appointment this date due to [ ]weather.
--- NOTE | 2020-11-29 10:41 | PTOPEVAL ---
PHYSICAL THERAPY REEVALUATION AND UPDATED PLAN OF CARE 11-29-20 Refer to the clinical summary for his status compared to the initial evaluation. He has not met the goals, but tissue has decreased in fibrosis and less redness. Continue PT 3x/week for 4 weeks, to further decrease the circumferential measurement of his L LE and improve skin integrity and fitting for appropriate compression garment for management of his lymphedema. Thank you for referring Kirill Cardoso to [facility].? Please review, sign, date and return this plan of care DAVE. I agree with and certify that the following plan of care is medically necessary. Referring Physician Date Attending Provider: Robbie Rick DO Assessment Status Re-evaluation Subjective Information Art reports: no problems, Query Text:As Reported By Patient/ wants to keep working on his Family leg to get it smaller; Pain Assessment Timing of Pain Assessment Timing of Pain Assessment Assessment Self Report Self Report Pain Level 0 Pain Score Pain Score 0: Self Report Lymphedema Therapy Skin Inspection Location Left Upper Extremity,Left Anterior Lower Quadrant,Left Anterior Upper Quadrant,Right Anterior Lower Quadrant,Right Anterior Upper Quadrant Tissue Texture Hard Lymphedema Stage II Skin Inspection Comment L LE: dorsum of foot with minimal fibrotic tissue; red area at base of toes with minimal firmness; toes with slight redness; medial-lower thigh with minimal fibrosis and minimal redness; area over posterior calf with brown thick tissue and redness around edge and fibrotic--less redness than was last week; LE Circumferential Measurement Left LE Lymphedema Side Left Metatarsal Heads (cm) 25.8 Figure 8 of Ankle (cm) 65 8 cm From Bottom of Foot (cm) 33.5 12 cm From Bottom of Foot (cm) 33.5 16 cm From Bottom of Foot (cm) 37.5 20 cm From Bottom of Foot (cm) 48 24 cm From Bottom of Foot (cm) 52.8 28 cm From Bottom of Foot (cm) 60 32 cm From Bottom of Foot (cm) 63.5 36 cm From Bottom of Foot (cm) 65.2 40 cm From Bottom of Foot (cm) 65.8 44 cm From Bottom of Foot (cm) 65 48 cm From Bottom of Foot (cm) 62.5 52 cm From Bottom of Foot (cm) 68 56 cm From Bottom of Foot (cm) 73.5 60 cm From Bottom of Foot (cm) 77.2 64 cm From Bottom of Foot (cm) 78 Total Left Lower Extremity Left LE: 974.8 cm Circumferential Measurement (cm)
--- NOTE | 2020-12-30 09:41 | PCPTNOTE ---
PHYSICAL THERAPY DISCHARGE 12-30-20 Attending Provider: Robbie Rick DO Patient:Kirill Cardoso Date of :1945 Art has received 24 PT sessions, from November 01 to December 25, for the diagnosis of L LE lymphedema. Circumferential measurement of his L LE, up 64 cm from the bottom of his foot: at the last visit was 954.5 cm, which was decreased from the last reevaluation by 20.3 cm. The size of his leg varied throughout the treatment session, with the highest measurement of 1000 cm. During this time frame, he did have increased redness and was on a round of antibiotics. The tissue of his L leg has improved--the medial thigh did not have any fibrosis or redness; lower leg tissue is soft and pliable; dorsum of foot with slight redness and edema. He has appropriate compression garments for his L thigh, lower leg and foot. His is assisting him with the garments, he is using the home compression pump and doing his self massage. Lymphedema education has been completed and he has a good understanding of self care. The goals were achieved, except with circumferential measurement of his L LE. Thank you for referring Mr. Cardoso to [facility]. Please review, sign, date and return this discharge summary DAVE. I have been updated about the patient's current status and I agree with discharge from the above service at this time. Referring Physician Date
== END 2020-12-30 14:00 | disposition home or self-care (01) ==
LOC: ANHPT 12:30
PROVIDERS: PCP Internal Medicine; Visit Provider Internal Medicine
DX: I89.0 Lymphedema, not elsewhere classified (principal)
CPT/HCPCS: 29581; 97016; 97140; 97161

== ENCOUNTER 2021-08-13 12:30 | Outpatient (RCR) | payer OTHER, SELFPAY ==
--- NOTE | 2021-06-17 15:06 | PTOPEVAL ---
PHYSICAL THERAPY EVALUATION AND PLAN OF CARE 06-17-21 Thank you for referring Kirill Cardoso to [facility].? Art is scheduled to be seen for therapy? 2-3 x/week for 5 weeks. Please review, sign, date and return this plan of care DAVE. I agree with and certify that the following plan of care is medically necessary. Referring Physician Date Attending Provider: DO Rob CoughlinPT Outpatient Evaluation Document 06/17/21 12:07 OBDULIO (Rec: 06/17/21 13:35 OBDULIO [id number]) Past Medical History Source of Past Medical History Recalled from Previous Visit, Confirmed with Patient/Family Neurological History Hx Neurological Disorders No Significant History Cardiovascular History Hx Atrial Fibrillation Yes: meds Hx Deep Vein Thrombosis Yes: RIGHT LEG Hx Hypertension Yes: meds Hx Other Cardiac Disorders Yes Respiratory History Hx Respiratory Disorders No Significant History Gastrointestinal History Hx Gastrointestinal Disorders No Significant History Genitourinary History Hx Benign Prostatic Hyperplasia Yes Musculoskeletal History Hx Back Injury Yes Hx Back Pain Yes: chronic back pain- Hx Joint Replacement Yes: BILATERAL KNEES Hematological History Hx Hematological Disorders No Significant History Endocrine History Hx Diabetes Yes: controlled HEENT History Hx HEENT Disorders No Significant History Integumentary History Hx Skin Disorders No Significant History Reproductive History Hx Reproductive Disorders No Significant History Psychosocial History Hx Psychiatric Disorders No Significant History Pain History History of Any Previous or Ongoing No Significant History Instance of Pain Anesthesia History Hx Anesthesia Reactions No Significant History Other History Hx Other Medical Conditions Yes: have not had COVID vaccine; have not weighed lately- does not know his wt Evaluation Information Problem Diagnosis lymphedema B LE's Onset May 2021 Prior Level of Function Activity Level (Last 3 Months) 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
--- NOTE | 2021-07-14 13:42 | PCPTNOTE ---
pt called and canceled today's appt;
--- NOTE | 2021-07-23 13:39 | PTOPEVAL ---
PHYSICAL THERAPY REEVALUATION AND UPDATED PLAN OF CARE 07-23-21 Refer to the clinical summary below for his status today, compared to the initial evaluation. Goals were partially achieved; to continue PT 2x/week for 3 weeks. Thank you for referring Kirill Cardoso to [facility].? Please review, sign, date and return this updated plan of care [facility]. I agree with and certify that the following plan of care is medically necessary. Referring Physician Date Attending Provider: Robbie Rick DO Document 07/23/21 12:30 OBDULIO (Rec: 07/23/21 13:39 OBDULIO [id number]) Assessment Status Re-evaluation Subjective Information Art and his report: Query Text:As Reported By Patient/ using home pump once/day, with Family more time on torso setting; doing self massage, and hand massager over pannus/stomach; tape helps pannus area and helps urination in that feel like bladder empties easier; keep L leg elevated, concerned that top of foot still red and swollen and stomach still firm; want to continue therapy. Pain Assessment Timing of Pain Assessment Timing of Pain Assessment Assessment Self Report Self Report Pain Level 0 Pain Score Pain Score 0: Self Report Lymphedema Evaluation Skin Inspection Location Left Lower Extremity,Right Lower Extremity Skin Observations Absence of Leg Hair,Dorsum Foot Swelling, Hyperpigmentation,Hyperplasia, Obesity,Papillomas,Peau d' [place] Palpation Findings Non-Pitting Edema,Pitting Edema Tissue Texture Hard Lymphedema Stage II Skin Inspection Comment L LE: L medial thigh lobule with minimal papilloma and firmness; dorsum of foot edema with red, firm patch at base of toes 8 cm med/lateral and 5 cm superior/inferior; toes red and edematous,with fbrotic tissue over anterior toes; edema over medial and lateral ankle; skin with slight flaking/moist; --RLE: not inspected at this time;
--- NOTE | 2021-08-13 13:34 | PTOPEVAL ---
PHYSICAL THERAPY DISCHARGE 08-13-21 Refer to the clinical summary below for his status today, compared to the last re- evaluation. The goals were partially achieved. Thank you for referring Kirill Cardoso to [facility].? Please review, sign, date and return this Discharge Report DAVE. I agree with and certify that the following plan of care is medically necessary. Referring Physician Date Attending Provider: Robbie Rick, Document 08/13/21 12:30 OBDULIO (Rec: 08/13/21 13:34 OBDULIO [id number]) Assessment Status Discharge Subjective Information Art and his report: he Query Text:As Reported By Patient/ is wearing his capris, just Family started yesterday and wore 12 hours; the ordered garment came in, does not fit and does not work; Pain Assessment Timing of Pain Assessment Timing of Pain Assessment Assessment Self Report Self Report Pain Level 0 Pain Score Pain Score 0: Self Report Lymphedema Evaluation Skin Inspection Location Left Lower Extremity,Left Anterior Lower Quadrant,Left Anterior Upper Quadrant,Right Anterior Lower Quadrant,Right Anterior Upper Quadrant Skin Observations Dorsum Foot Swelling,Lipedema Tissue Texture Hard Lymphedema Stage II Skin Inspection Comment L LE: dorsum of foot edema and toes with edema; -palpation over abdomen: pannus with fibrotic tissue over distal aspect R > L; measured in mid line, superior /inferior fibrotic tissue 16 cm; peau d orange tissue with redness; L distal area with small open area-- put dressing over boil that opened up this AM; garments: L LE: toe cap, solaris foot piece, Farrow lower leg; he did not wear in the knee or thigh pieces, due to had henry on prior to coming in and also left henry off; reviewed garments with him: asked about using compression anklet with the toe cap, instruct
== END 2021-08-14 12:07 | disposition home or self-care (01) ==
LOC: ANHPT 12:30
PROVIDERS: PCP Internal Medicine; Visit Provider Internal Medicine
DX: I89.0 Lymphedema, not elsewhere classified (principal)
CPT/HCPCS: 29581; 97140; 97162

== ENCOUNTER 2022-06-04 09:00 | Outpatient (RCR) | payer OTHER, SELFPAY ==
--- NOTE | 2022-03-19 16:04 | PTOPEVAL ---
PHYSICAL THERAPY EVALUATION AND PLAN OF CARE 03-19-22 Thank you for referring Kirill Cardoso to [facility].? Art is scheduled to be seen for therapy? 2 x/week for 5 weeks. Please review, sign, date and return this plan of care DAVE. I agree with and certify that the following plan of care is medically necessary. Referring Physician Date Attending Provider: Robbie Rick DO Outpatient Past Medical History Past Medical History Source of Past Medical History Recalled from Previous Visit, Confirmed with Patient/Family Neurological History Hx Neurological Disorders No Significant History Cardiovascular History Hx Atrial Fibrillation Yes: meds Hx Deep Vein Thrombosis Yes: RIGHT LEG Hx Hypertension Yes: meds Hx Other Cardiac Disorders Yes Respiratory History Hx Respiratory Disorders No Significant History Gastrointestinal History Hx Gastrointestinal Disorders No Significant History Genitourinary History Hx Benign Prostatic Hyperplasia Yes Musculoskeletal History Hx Back Injury Yes Hx Back Pain Yes: chronic back pain Hx Joint Replacement Yes: BILATERAL KNEES Hematological History Hx Hematological Disorders No Significant History Endocrine History Hx Diabetes Yes: controlled HEENT History Hx HEENT Disorders No Significant History Integumentary History Hx Skin Disorders No Significant History Reproductive History Hx Reproductive Disorders No Significant History Psychosocial History Hx Psychiatric Disorders No Significant History Pain History History of Any Previous or Ongoing No Significant History Instance of Pain Anesthesia History Hx Anesthesia Reactions No Significant History Other History Hx Other Medical Conditions Yes: have not had COVID vaccine; have not weighed lately Evaluation Information Diagnosis lymphedema Onset December 2021 Subjective Information gradual increase in swelling; Query Text:As Reported By Patient/ no recent falls, injuries or Family medical issues; Prior Level of Function Activity Level (Last 3 Months) Occupation retired Activity of Daily Living Ability Needs Some Help Indoor/Home Mobility Needs Some Help Community Mobility Needs Some Help Functional Cognition (Planning, Shopping Needs Some Help , Taking Medications) Home Setting Home Type House Living Situation With Spouse Mobility Assistive Devices (Used Last 3 None,Walker, Standard, Months) Wheelchair, Manual Comments Additional Prior Level of Function use walker or no device in Comments home for short distances
--- NOTE | 2022-04-22 15:45 | PTOPEVAL ---
PHYSICAL THERAPY REEVALUATION AND UPDATED PLAN OF CARE 04-22-22 Refer to the clinical summary below for his status today, compared to the initial evaluation. PT is to continue treatment 2x/wk for 6 weeks. Thank you for referring Kirill Cardoso to [facility].? Please review, sign, date and return this plan of care DAVE. I agree with and certify that the following plan of care is medically necessary. Referring Physician Date Attending Provider: Robbie Rick, Subjective Information Art reports: feels like the Query Text:As Reported By Patient/ henry over his pannus and L Family thigh reduction kit is helping; want to continue to come for therapy; Pain Assessment Pain Scale Pain Scale Used Numeric (1 - 10) Self Report Pain Assessment Bilateral Back Reported Pain Level 1 Pain Frequency Chronic,Continuous Lowest Pain Intensity 1 Greatest Pain Intensity 6 Interventions Used Interventions Used By Clinicians Education Skin Inspection Location Left Lower Extremity Tissue Texture Firm Skin Inspection Comment L LE: medial-distal thigh with lobule with slight redness; firmness over distal lateral lower leg; edema over both ankles; bandage over dorsum of foot-distal area of redness ; medium redness over 2,3,4 toes with 2nd toe medial- lateral superficial open area- -instruct pt and to monitor; to dept in wheelchair; required assist with legs on/ off mat LE Lymphedema Side Left Total Left Lower Extremity Left LE: cm Circumferential Measurement (cm) Additional Lower Extremity standing: waist at largest Circumferential Measurement Comments point 159 cm L LE: lateral lower leg fibrotic area: superior/ inferior 11 cm x medial/ lateral 8 cm medial distal thigh fibrotic area: superior /inferior 17 cm x medial/lateral 21 cm pannus of lower abdomen: measured in supine: superior- inferior: R lateral aspect 19 cm/ mid line of body 29 cm/ L lateral aspect 25 cm wit
--- NOTE | 2022-04-23 16:32 | PCPTNOTE ---
delay in initiation of treatment after reeval, due to therapist not have any availability. Will call pt if there are any openings prior to 05-11-22.
--- NOTE | 2022-06-04 10:01 | PTOPEVAL ---
PHYSICAL THERAPY RE-EVALUATION AND UPDATED PLAN OF CARE 06-04-22 Refer to the clinical summary below, for his status today, compared to the last reevaluation. Minimal progress was made, but he now has superficial wounds and is going to start attending wound care. Continue PT 1x/wk for 6 weeks, as he is going to wound care and provide continue treatment for lymphedema and pannus. Thank you for referring Kirill Cardoso to [facility].? Please review, sign, date and return this updated plan of care DAVE. I agree with and certify that the following plan of care is medically necessary. Referring Physician Date Attending Provider: Robbie Rick, DO Subjective Information Art and report: saw dr Query Text:As Reported By Patient/ yesterday, said to go to wound Family care for abdomen and continue therapy; home pump had issues yesterday--trunk part not working and they are getting a new one; awaiting call from wound care center for appt; continue to keep bandages over wounds and they have been dry past few days; have not been wearing henry due to pannus wounds; intermittent wearing thigh piece on L; have been doing self massage and hand massager over pannus; Pain Assessment Self Report Self Report Pain Level 0 Pain Score Pain Score 0: Self Report Additional Pain Score Comments has back pain and problems with increase pain getting in/ out car Bed Mobility Supine to Sit Ability Moderate Assistance X 1 Sit to Supine Ability Moderate Assistance X 1 Bed Mobility Comments need assist with LE's on and off bed; supine to sit requires PT hand to pull trunk up Gait Assessment Ambulation Assistive Devices Walker, Standard Ambulation Distance 15 Query Text:(Feet) Ambulation Ability Standby Assistance Cues Needed For Ambulation None Additional Ambulation Comments safety for SBA; from w/c into treatment room; to/from dept in w/c pushed by PT Lymphedema Evaluation Skin Inspection Location Left Lower Extremity Skin Observations Dorsum Foot Swelling,Obesity, Papillomas,Peau d' [place] Palpation Findings Non-Pitting Edema,Pitting Edema
--- NOTE | 2022-06-10 14:41 | PCPTNOTE ---
This treatment is being continued on visit number [id number]. Please see documentation on both accounts to view progress. Completed interventions, outcomes, and problems have been marked as Inactive to facilitate the copying of the Care plan routine for recurring accounts.
== END 2022-06-10 14:36 | disposition home or self-care (01) ==
LOC: ANHPT 09:00
PROVIDERS: PCP Internal Medicine; Visit Provider Internal Medicine
DX: I89.0 Lymphedema, not elsewhere classified (principal)
CPT/HCPCS: 97140; 97162; 97530

== ENCOUNTER 2022-07-09 15:30 | Outpatient (RCR) | payer OTHER, SELFPAY ==
--- NOTE | 2022-07-14 11:55 | PCPTNOTE ---
PHYSICAL THERAPY DISCHARGE 07-14-22 Attending Provider: Robbie Rick DO Patient:Kirill Cardoso Date of :1945 Art has received 25 PT sessions, from March 19 to July 09, for the diagnosis of abdominal/trunk and LE lymphedema. He called today and canceled the reevaluation appointment due to his being ill. I talked with him on the phone and did a verbal discharge with him. He is doing his self manual lymph drainage, using his home intermittent compression pump and using compression garments over LE's. He continues to have the fibrotic tissue over his lower abdomen, with skin changes and small open areas. Art will be discharged from PT services at this time. The goals were partially achieved. Thank you for referring Mr. Cardoso to [facility].
== END 2022-07-15 08:58 | disposition home or self-care (01) ==
LOC: ANHPT 15:30
PROVIDERS: PCP Internal Medicine; Visit Provider Internal Medicine
DX: I89.0 Lymphedema, not elsewhere classified (principal); L98.499 Non-pressure chronic ulcer of skin of other sites with unspecified severity
CPT/HCPCS: 97110; 97140; 97530

== ENCOUNTER 2022-08-19 07:54 | Outpatient (RCR) | payer OTHER, SELFPAY ==
[2022-06-10 12:44] VITALS: BMI 55.5
--- NOTE | 2022-07-30 13:16 | WPDWOUNDNOTE ---
Wound Care Note Date/Time: 07/30/22 13:00 History: This patient is a 77-year-old massively obese white male with a very large panniculus. He has known lymphedema of the lower extremities. He has been using lymphedema pumps for his legs at home and also has a portion that wraps around his abdomen. However, as best I can tell from his 's description this wraps around his waist and a large part of his panniculus is not compressed by the lymphedema compression device and sits below the level where compression occurs. I believe he has been coming to the [facility]ound [facility] at Dr. Rick's request for skin lesions on the panniculus. Last week when Yefri saw the patient he had what appeared to be an abscess on the inferior side of his panniculus. Therefore I was asked to see him this date to evaluate this. He has been on Augmentin 500/125 b.i.d. and has another refill on that for 1 more 7 day course. Wound history: This is a skin abnormality on the underside of the patient's large panniculus. He has had difficulty with edema of the panniculus for some time. It gets excoriated periodically and Yefri says typically it looks like there are blackhead that it on the area which are treated with topical Mupirocin. prior to this he has not had significant problems with the skin of his panniculus but it does look edematous. Wound width: 0.5 cm Wound length: 0.5 cm ( to the left and slightly inferior there is a area of softening skin with bruising under which there was probably a tract that leads to the opening described. Wound depth: 2 cm Drainage: yellow slightly cloudy fluid from a small opening Surrounding tissue appearance: some skin changes inferior and lateral to the current opening. Patient has scattered small areas of skin change consistent with folliculitis across the somewhat edematous panniculus. Tunneling: Only at the site described above Percentage granulation tissue: not applicable Treatment/Procedures: recommend packing with quarter-inch plain or iodoform Nu Gauze until no longer able to pack. Recommend continuing oral antibiotics for another 7 days. Recommend evaluation by Plastic surgery for opinion regarding whether his panniculus might be amenable to a panniculectomy in view of his problems. (Of course would need to come off the Coumadin and this could be cleared by Dr. Bentley from Cardiology if need be). Dressings: packing of the opening with quarter-inch Nu Gauze Gauze dressing. Assessment and Plan Assessment and plan (1) Symptomatic abdominal panniculus: Code(s): E65 - Localized adiposity Status: Acute Assessment and Plan: At this time the panniculus for this patient is so large that he is beginning to have skin problems with folliculitis and now probable abscess related to this. Even though they have tried he is unable to have a lymphedema compression device that will help this. It may actually make it worse because it may come across the upper part the panniculus and compress that leaving the lower part more edematous. ( I asked the patient to stop using this on his body but use it on his legs). I would recommend plastic surgery evaluation for the possibility of evaluating for panniculectomy. (2) Type 2 diabetes mellitus: Code(s): E11.9 - Type 2 diabetes mellitus without complications Status: Acute Assessment and Plan: Followed by Dr. Rick On metformin and glipizide. (3) Obstructive sleep apnea: Code(s): G47.33 - Obstructive sleep apnea (adult) (pediatric) Status: Chronic Assessment and Plan: Patient apparently has had a sleep apnea test the past but it was completed inadequately. It was recommend that he repeated but he never went back. (4) Lymphedema of both lower extremities: Code(s): I89.0 - Lymphedema, not elsewhere classified Status: Chronic Assessment and Plan: this is a long-standing problem he has been
== END 2022-09-08 23:59 | disposition home or self-care (01) ==
LOC: ANHWOC 07:54
PROVIDERS: PCP Internal Medicine; Referring Provider Surgery; Visit Provider Internal Medicine
DX: L98.499 Non-pressure chronic ulcer of skin of other sites with unspecified severity (principal)
CPT/HCPCS: 99213; A9270; G0463

== ENCOUNTER 2022-10-07 07:22 | Outpatient (RCR) | payer OTHER, SELFPAY ==
[2022-09-09 00:06] VITALS: BMI 55.5
--- NOTE | 2022-09-14 17:13 | WPDWOUNDNOTE ---
Wound Care Note Date/Time: 09/09/22 12:13 History: This patient is a 77-year-old massively obese white male with a very large panniculus.? He has known lymphedema of the lower extremities.? He has been using lymphedema pumps for his legs at home and also has a portion that wraps around his abdomen.? However, as best I can tell from his 's description this wraps around his waist and a large part of his panniculus is not compressed by the lymphedema compression device and sits below the level where compression occurs. ? I believe he has been coming to the Wound Clinic at Dr. Rick's request for skin lesions on the panniculus.? ? In early Jul when Yefri saw the patient he had what appeared to be an abscess on the inferior side of his panniculus.? Therefore, I was asked to see him to evaluate this.? He has been on Augmentin 500/125 b.i.d. and has another refill on that for 1 more 7 day course that was given last visit. Wound history: ?This is a skin abnormality on the underside of the patient's large panniculus.? He has had difficulty with edema of the panniculus for some time.? It gets excoriated periodically and Yefri says it typically it looks like there are blackheads on it They then typically clean the area and are then treated with topical Mupirocin.? Prior to this (07/2022) he has not had significant problems with the skin of his panniculus but it does look edematous. Patient has scattered areas of apparent folliculitis across the dependent portion of his panniculus none of which appear to be actively infected at this time. Wound width: Four wounds 3 mm in diameter that are barely able to be packed Wound length: 3 mm Wound depth: 1 cm Drainage: clear serous fluid Surrounding tissue appearance: edematous and pink Tunneling: minimal Percentage granulation tissue: now Treatment/Procedures: packing with quarter-inch plain Nu Gauze' Discussed weight loss with patient Discussed possible referral to [facility] Plastic surgery since [facility] would not accept a pt with this massive weight at his age. Discussed stopping the use of the trunk portion of his lymphedema pump. Discussed at least for 3 hours when he is going to lay down to get his lounger chair with the head back as far as they can and get a towel or some type of pillow under his panniculus to elevate it to allow for better venous and lymphatic drainage. Otherwise it is always dependent whether he is standing or sitting. He hardly ever lays flat. Dressings: packing with quarter-inch plain Nu Gauze as it will be done until unable to be done. Mupirocin to any areas that appear to be superficially infected. Assessment and Plan Assessment and plan (1) Symptomatic abdominal panniculus: Code(s): E65 - Localized adiposity Status: Acute Assessment and Plan: ??Assessment and Plan: At this time the panniculus for this patient is so large that he is continuing to have skin problems with folliculitis, edema, superficial skin breakdown, and possibly even lymphedema related to this. ? Even though they have tried he is unable to have a lymphedema compression device that will help this.? It may actually make it worse because it may come across the upper part the panniculus and compress that leaving the lower part more edematous.? ( I asked the patient to stop using this on his body or central core but continue to use it on his legs).? I would recommend plastic surgery evaluation for the possibility of evaluating for panniculectomy. ( although he is a poor surgical candidate with multiple medical issues and on anticoagulation. ). For now the plan is to continue local wound care and infection prevention. Also as noted above encourage patient to lay back as far as he can for at least 3 hours a day in his wheezing putting wound her chair and get a pillow or something under his panniculus to elevated allow for better drainage if he can do this twice a da
--- NOTE | 2022-09-28 09:05 | PCWOUND ---
WOCN NOTE received call from patients to cancel today's appointment. Patient had slipped and fell in the bathroom last night and his back is sore. Asked if patient needed to be evaluated in the ER, per spouse he just twisted his back, but did not hit it on anything so she did not see a reason to bring him to the ER. States that out of the 3 wounds only 1 remains open, patient has been doing a manual lymphedema massage to his pannus to help increase circulation. Patient has been rescheduled for next week 10/07/22 at 1230.
== END 2022-11-13 15:50 | disposition home or self-care (01) ==
LOC: ANHWOC 07:22
PROVIDERS: PCP Internal Medicine; Referring Provider Surgery; Visit Provider Internal Medicine
DX: L98.499 Non-pressure chronic ulcer of skin of other sites with unspecified severity (principal)
CPT/HCPCS: 99213; 99214; A9270; G0463

== ENCOUNTER 2022-12-03 15:30 | Outpatient (RCR) | payer OTHER, SELFPAY ==
--- NOTE | 2022-10-21 16:17 | PTOPEVAL1 ---
Assessment and note entered by Lavern Kirkpatrick, PT, CLT Evaluation Information Assessment Status Evaluation Diagnosis lymphedema Onset August 2022 Subjective Information went to wound care due to pannus infection/wounds, have been discharged from wound care services; referred to plastic surgery, they did review of phone and he was not appropriate for surgery at this time, has to lose weight- 100#; wounds over pannus are draining, packed and does dressing changes; L leg is swelling more Reported Pain Level Pain Score Self Report Additional Pain Score Comments no pain in legs, has back pain 0-8/10 Assessment PT Clinical Summary Art has the diagnosis of lymphedema. He has been here multiple times, last d/c May 2022; recent d/c last month from wound care, for wounds over pannus. Plastic surgeon has been consulted by phone history for surgical removal of the pannus and pt was told he needs to lose 100# before they would talk to him about surgery. The pannus wounds are draining and he has not been wearing his thigh compression due to it getting wet. With the evaluation, the circumferential measurement of his L leg has increased by 65.4 cm compared to his last measurement her in May. There is more fibrotic tissue over pannus, medial thigh and lateral lower leg. Skilled PT services are indicated for lymphedema treatment to decrease fibrotic tissue, increase lymph flow and reduce L leg and abdominal lymphedema. Plan of Care Interventions Manual Lymph Drainage, Manual Therapy,Therapeutic Activities,Therapeutic Exercise PT Services Indicated Yes Treatment Frequency and 2x/wk for 5 weeks Duration These treatments will address the objective and functional deficits as defined above. The patient will be advanced safely and appropriately in order for the patient to progress towards his/her prior level of function. Additional exercises will be introduced and as well as a comprehensive home exercise program upon discharge, if needed, ?to ensure carryover of functional gains achieved in the clinic. This treatment plan has been reviewed and agreement upon by the patient.
--- NOTE | 2022-11-10 08:44 | PCPTNOTE ---
pt called and canceled appt due to cold weather;
--- NOTE | 2022-11-12 16:23 | PCPTNOTE ---
Patient called & cancelled scheduled appointment this date due to wounds getting worse and going to MD.
--- NOTE | 2022-12-03 16:31 | PTOPPROG ---
Assessment and note entered by Lavern Kirkpatrick, PT, CLT Evaluation Information Assessment Status Progress Diagnosis lymphedema Onset August 2022 Subjective Information Art and report: continue to have dressing and packing over pannus: 3 packed wounds and 3 that are open and leaking; using home pump on legs, but not torso; elevating pannus at night with sleeping, pillows propped on top of legs to hold pannus up with sleeping; he has lost 9#; feel therapy is helping his leg and foot-- decreased pain in foot; voiced frustration about no end in sight -- continues to have the wounds and swelling continues; he does not have any dr appt upcoming; Assessment PT Clinical Summary Art has received 8 PT sessions; 2 appointments were canceled by pt. Compared to the initial eval, circumferential measurement of L leg has decreased by 29.8 cm; measurements of pannus and medial thigh are about the same; fibrotic area over lateral tibial area is increased, due to Farrow slip down and ridge with fibrotic above the garment; Continues to have wounds and non healing areas over distal pannus-- is packing and applying dressings. Continue PT 1x/wk. Plan of Care Interventions Manual Therapy,Patient/Caregiver Education, Therapeutic Activities,Therapeutic Exercise PT Services Indicated Yes Treatment Frequency and 1x/wk for 8 weeks Duration These treatments will address the objective and functional deficits as defined above. The patient will be advanced safely and appropriately in order for the patient to progress towards his/her prior level of function. Additional exercises will be introduced and as well as a comprehensive home exercise program upon discharge, if needed, ?to ensure carryover of functional gains achieved in the clinic. This treatment plan has been reviewed and agreement upon by the patient.
--- NOTE | 2022-12-18 15:17 | PCPTNOTE ---
pt called and canceled due to illness;
--- NOTE | 2022-12-23 12:00 | PCPTNOTE ---
Patient called & cancelled scheduled appointment this date due to being in the hospital with COVID.
--- NOTE | 2023-01-04 15:19 | PCPTNOTE ---
PHYSICAL THERAPY DISCHARGE 01-04-23 Attending Provider: Brant Pearce APRN Patient:Kirill Cardoso Date of :1945 Mr. Cardoso received 8 PT sessions, from October 21 to December 03 for the diagnosis of lymphedema. He called and canceled due to illness, then was hospitalized on December 23; therefore, he will be discharged at this time. The goals were not assessed. Thank you for referring Art to [facility].
== END 2023-01-05 09:03 | disposition home or self-care (01) ==
LOC: ANHPT 15:30
PROVIDERS: PCP Internal Medicine; Visit Provider Nurse Practitioner
DX: I89.0 Lymphedema, not elsewhere classified (principal)
CPT/HCPCS: 97140; 97162

== ENCOUNTER 2022-12-22 09:45 | Inpatient (IN) | payer OTHER, SELFPAY ==
[2022-12-22] VITALS (32 sets, daily range): BP systolic 131–161; BP diastolic 66–94; PULSE 101–130; RESP 17–25; TEMP 36.5–37.9; O2SAT 93–99; BMI 55.4
--- NOTE | ~2022-12-22 | XR_ITS ---
Portable chest x-ray Comparison: 02/18/2018 Clinical History: Shortness of breath Findings: Probable mild central congestive changes. No consolidation or pleural effusion. Cardiomed iastinal silhouette is stable. Bones and soft tissues are unremarkable. Impression: Probable mild central congestive change. Reviewed, dictated and finalized at [facility]. Impression: Probable mild central congestive change.
--- NOTE | ~2022-12-22 | XR_ITS ---
AP view of the pelvis and AP and lateral views of the left hip Clinical history: Pain Findings: No acute fracture or dislocation is seen. Osseous alignment is anatomic. Bilateral hip and SI joint spaces are preserved. Soft tissues are unremarkable. Impression: No significant abnormality is seen. Reviewed, dictated and finalized at location . Impression: No significant abnormality is seen.
--- NOTE | ~2022-12-22 | XR_ITS ---
XR chest PICC line 12/25/2022 16:05 Indication: PICC line placement Procedure: AP portable chest Comparison: Comparison to multiple prior studies sequentially, with oldest reviewed study dated 10/2021. Findings: Cardiomegaly. Bibasilar airspace disease, consistent with pneumonia. PICC line tip in the SVC. No pneumothorax. No acute osseous abnormality. No acute osseous abnormality . Impression: 1: Bibasilar airspace disease, compatible with pneumonia. Reviewed, dictated and finalized at location A. Impression: 1: Bibasilar airspace disease, compatible with pneumonia.
--- NOTE | ~2022-12-22 | XR_ITS ---
EXAMINATION: XR chest 1V portable DATE: 12/24/2022 12:06 INDICATION: Shortness of breath. TECHNIQUE: A single frontal view of the chest was obtained. COMPARISON: Chest one view 12/22/2022 FINDINGS: There are airspace opacities in the mid and lower lung zones. There is a small left pleural effusion. No pneumothorax. Cardiomegaly is noted. IMPRESSION: 1. Airspace opacities in the mid and lower lung zones, consistent with atelectasis versus pneumonia. 2. Small left pleural effusion. 3. Cardiomegaly. Reviewed, dictated and finalized at location A. IMPRESSION: 1. Airspace opacities in the mid and lower lung zones, consistent with atelecta sis versus pneumonia. 2. Small left pleural effusion. 3. Cardiomegaly.
--- NOTE | ~2022-12-22 | XR_ITS ---
Portable chest x-ray Comparison: 12/27/2022 Clinical History: Hypoxia Findings: Left-sided PICC line is in place. There is probable small left pleural effusion with left b asilar consolidation, and more patchy ground glass opacity in the remainder of the lungs. Cardiomedi astinal silhouette is stable. Bones and soft tissues are unremarkable. Impression: Left basilar consolidation with more patchy groundglass pulmonary disease in the remainder of the nikolay gs. Correlate for pulmonary edema versus infection. Small left pleural effusion. Left-sided PICC line. Reviewed, dictated and finalized at location . Impression: Left basilar consolidation with more patchy groundglass pulmonary disease in th e remainder of the lungs. Correlate for pulmonary edema versus infection. Small left pleural effusion. Left-sided PICC line.
--- NOTE | ~2022-12-22 | XR_ITS ---
XR chest 1V portable 12/27/2022 06:47 Indication: Hypoxia Procedure: AP portable chest Comparison: Comparison to multiple prior studies sequentially, with oldest reviewed study dated 02/18. Findings: Cardiomegaly. Developing Diffuse bilateral airspace disease. PICC line tip in the SVC. No s ignificant effusion or pneumothorax. Impression: 1: Developing diffuse bilateral airspace disease which may represent edema or less likely pneumonia. Reviewed, dictated and finalized at location A. Impression: 1: Developing diffuse bilateral airspace disease which may represent edema or l ess likely pneumonia.
--- NOTE | 2022-12-22 10:09 | ECG_ITS ---
Measurements Intervals [place] Rate: 103 P: NV: 0 QRS: 17 QRSD: 142 T: -18 QT: 333 QTc: 436 Interpretive Statements ATRIAL FIBRILLATION WITH RAPID VENTRICULAR RESPONSE VENTRICULAR PREMATURE COMPLEX RIGHT BUNDLE BRANCH BLOCK BORDERLINE ST-T WAVE ABNORMALITY- INFERIOR LEADS ABNORMAL ECG NO PREVIOUS ECG AVAILABLE FOR COMPARISON Electronically Signed On 12-22-2022 11:27:18 CDT by Bryson Flower D.O.
[2022-12-22 11:13] LABS: Basophils Percent Auto 0.4 % (0.2-1.2); Hematocrit 40.8 % (42.0-52.0); Hemoglobin 13.3 g/dL (14.0-18.0); Immature Granulocyte Absolute 0.03 K/mm3 (0.00-0.031); Immature Granulocyte Percent A 0.4 % (0-0.5); Lymphocytes Absolute Auto 0.49 K/mm3 (0.9-3.2); Lymphocytes Percent Auto 5.8 % (18.3-44.2); Mean Corpuscular HGB Conc 32.6 g/dl (32-36); Mean Corpuscular Hemoglobin 32.4 pg (26-34); Mean Corpuscular Volume 99.3 fl (80-100); Monocytes Absolute Auto 0.7 K/mm3 (0.1-0.6); Monocytes Percent Auto 8.4 % (2.6-8.5); Neutrophils Absolute Auto 7.2 K/mm3 (1.3-6.7); Platelet Count Result 128 k/mm3 (150-375); Red Blood Count 4.11 M/mm3 (4.6-6.20); Red Cell Distribution Width 14.8 % (11.5-14.5); White Blood Count 8.5 K/mm3 (4.5-10.0)
[2022-12-22 11:23] LABS: Alanine Aminotransferase 33 U/L (6-50); Albumin Level 3.8 g/dL (3.5-5.1); Alkaline Phosphatase 60 U/L (38-126); Anion Gap 10 mmol/L (8-16); Aspartate Amino Transferase 130 U/L (17-59); Blood Urea Nitrogen 15 mg/dL (9-20); Calcium 8.3 mg/dL (8.4-10.2); Carbon Dioxide 23 mmol/L (22-30); Chloride 103 mmol/L (98-107); Estimated CRCL calculation 94 ml/min; Estimated Glomerular Filt Rate > 60; Glucose 120 mg/dL (65-110); Potassium 3.9 mmol/L (3.4-5.0); Sodium 136 mmol/L (137-145)
--- NOTE | 2022-12-22 12:10 | PC.NURSE ---
Called lab to add on BNP
--- NOTE | 2022-12-22 12:25 | ED.GENADULT ---
HPI - General Adult General Chief complaint: Shortness of Breath/Dyspnea Stated complaint: SOB Time Seen by Provider: 12/22/22 10:13 History of Present Illness HPI narrative: 77-year-old male with history of morbid obesity, atrial fibrillation, diabetes, hypertension, bilateral lower extremity lymphedema, high cholesterol presenting to the emerged department for evaluation after having a ground-level fall. Patient reports that this morning at 4 AM he was attempting to sit on the toilet when he missed causing himself to slide to the floor. Patient was initially complaining of some bilateral elbow pain due to catching his fall but states he no longer has any elbow pain. Patient did call EMS for evaluation and left assist. Patient initially declined transport but later in the morning felt that he was having increased pain so he recalled EMS for transport to the emergency department. Patient states he was having some increased left hip pain. At time of examination patient states he has no chest pain or shortness of breath. Patient denies any arm pain or leg pain at this time. Patient does have wheeze Related Data Home Medications Medication Instructions Recorded Confirmed losartan 100 mg tablet 100 mg PO DAILY 02/11/20 12/22/22 ascorbate calcium-bioflavonoid 1 tablet PO DAILY 02/12/20 12/22/22 1,000 mg-200 mg tablet ([place]-C with Bioflavonoids) aspirin 81 mg tablet,delayed 81 mg PO DAILY 02/12/20 12/22/22 release (Adult Low Dose Aspirin) acetaminophen 500 mg tablet 1,000 mg PO Q8H PRN pain 10/17/20 12/22/22 (Acetaminophen Extra Strength) saw palm 160 mg-vit E 100 1 tablet PO DAILY 10/17/20 12/22/22 unit-selen 100 spu-wthz-mlotay-pygeum tablet (Prostate Health) warfarin 4 mg tablet ([place]) See Rx Instructions PO .COMPLEX 10/17/20 12/22/22 cholecalciferol (vitamin D3) 50 50 mcg PO DAILY 12/19/20 12/22/22 mcg (2,000 unit) capsule zinc 50 mg tablet 50 mg PO DAILY 07/03/21 12/22/22 nifedipine 30 mg tablet,extended 30 mg PO DAILY 06/10/22 12/22/22 release 24 hr tramadol 50 mg tablet 50 mg PO DAILY PRN Pain 12/22/22 12/22/22 Allergies Allergy/AdvReac Type Severity Reaction Status Date / Time amiodarone Allergy Severe Hives / Verified 12/22/22 10:06 [place] Review of Systems Review of Systems: All systems reviewed & are unremarkable except as noted in HPI and below [facility] Past Medical History Medical History (Updated 12/22/22 @ 14:58 by Krystle Nixon PA-C) Arthritis Atrial fibrillation Since 2009; on chronic anticoagulation with Coumadin. 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 Christopher Benign prostatic hyperplasia Chronic anticoagulation Deep vein thrombosis of right lower extremity (2000) Gout Hard of hearing Hyperlipidemia Morbid obesity Obstructive sleep apnea Sleep study in 2009 with inadequate titration of CPAP and bilevel support due to poor sleep efficacy. The patient never went back for repeat sleep study. Type 2 diabetes mellitus Surgical History Surgical History (Updated 12/22/22 @ 14:56 by Krystle Nixon PA-C) History of bilateral knee replacement Left in 1999. Right in May 2006. History of cardioversion Family History Family History Father , At age 69 Acute myocardial infarction Mother , In her 80s Cerebral aneurysm Brainstem aneurysm Social History Social History (Updated 12/22/22 @ 14:57 by Krystle Nixon PA-C) Social History: Surrogate medical decision maker: Kelsi Cardoso, spouse. Code status: Full code. Smoking status: Former smoker Second hand tobacco smoke exposure: No Alcohol intake: never Substance use: never Substance use type: does not use Lack of Transportation: No Lack of Food: Never True Current Housing: I Have Housing Concerned About Future Housing: No Difficulty Paying Gas/Electric Bills: No Difficulty Paying for Meds: No
[2022-12-22 12:29] LABS: NT Pro B Type Natriuretic Pept 4490 pg/mL (19.9-100)
[2022-12-22] MEDS: ALBUTEROL SULFATE NEB 2.5 MG/3 ML INH 5 MG INHALATION (12:46)
[2022-12-22 12:55] LABS: Influenza A QL RT-PCR Negative (Negative); Influenza B QL RT-PCR Negative (Negative); RSV RNA, RT-PCR Negative (Negative); SARS-CoV-2 RNA PCR Positive
--- NOTE | 2022-12-22 13:21 | PC.NURSE ---
Left message for requesting call back.
--- NOTE | 2022-12-22 13:22 | PC.NURSE ---
Pt and aware of COVID+ status.
--- NOTE | 2022-12-22 13:29 | PC.NURSE ---
Family at bedside, informed of COVID status. No visitors for patient at this time.
--- NOTE | 2022-12-22 14:12 | PC.NURSE ---
Assisted x 5 off bedpan. No BM at this time, was able to urinate.
--- NOTE | 2022-12-22 14:15 | PM.IMHP ---
H&P: HPI History of Present Illness Date/Time: 12/22/22 14:15 Chief Complaint: Shortness of breath. Narrative: This is a pleasant 77-year-old male with morbid obesity, chronic lymphedema, type 2 diabetes mellitus, atrial fibrillation on chronic anticoagulation, hypertension, and other comorbidities who presented to the emergency department via EMS from home for evaluation of shortness of breath. Patient provides the following history. He has been feeling weak for several days with sinus congestion, sore throat which he attributes to postnasal drip, wheezing, and some chest congestion. He has been taking Robitussin and Tylenol at home for his symptoms. This morning he got up to use the restroom, felt weak when trying to sit down, and he slid down onto the bathroom floor. There was no injury, head trauma, or loss of consciousness in the fall. He was unable to get himself up and EMS was summoned for lift assist. He was not on the ground longer than 10 or 15 minutes. He denies fever, chills, sweats, headache, neck ache, chest pain pleuritic pain, sensations of racing heart, palpitations, nausea, vomiting, and diarrhea. He was afebrile on arrival to the emergency department. He is in persistent atrial fibrillation with rates in the 90s to low 100s currently. Blood pressures have been stable. Pertinent labs included WBC count of 8.5, hemoglobin 13.3, platelets 128, sodium 136, potassium 3.9, total bilirubin 2.0, AST 130, total CK 5444, proBNP 4490. Urine was cloudy with 3+ blood, 1+ protein, 3+ leukocyte esterase, greater than 100 wbc's, 3+ bacteria, and positive nitrates. He tested positive for COVID. Chest x-ray showed probable mild central congestive changes and hip and pelvis x-rays were negative. Review of Systems Review of Systems: Twelve systems were reviewed and are negative except for as per HPI. [facility] Past Medical History Medical History (Updated 12/22/22 @ 20:36 by Krystle Nixon PA-C) Arthritis Atrial fibrillation Since 2009; on chronic anticoagulation with Coumadin. His quality assurance lead is Dr. Christopher Benign prostatic hyperplasia Chronic acquired lymphedema Chronic anticoagulation Deep vein thrombosis of right lower extremity (2000) Gout Hard of hearing Hyperlipidemia Morbid obesity Obstructive sleep apnea Sleep study in 2009 with inadequate titration of CPAP and bilevel support due to poor sleep efficacy. The patient never went back for repeat sleep study. Type 2 diabetes mellitus Surgical History Surgical History (Updated 12/22/22 @ 14:56 by Krystle Nixon PA-C) History of bilateral knee replacement Left in 1999. Right in May 2006. History of cardioversion Family History Family History Father , At age 69 Acute myocardial infarction Mother , In her 80s Cerebral aneurysm Brainstem aneurysm Social History Social History (Updated 12/22/22 @ 14:57 by Krystle Nixon PA-C) Social History: Surrogate medical decision maker: Kelsi Cardoso, spouse. Code status: Full code. Smoking status: Former smoker Second hand tobacco smoke exposure: No Alcohol intake: never Substance use: never Substance use type: does not use Lack of Transportation: No Lack of Food: Never True Current Housing: I Have Housing Concerned About Future Housing: No Difficulty Paying Gas/Electric Bills: No Difficulty Paying for Meds: No Currently Unemployed: No Education: Associate Degree Difficulty w/ Childcare or Family Care: No Living arrangements: with family Additional living arrangements comments: Lives with in [place]. 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 Spiritual care concerns: No Agree to blood products: Yes Meds Home Medications and Allergies Home Medications Medication Instructions
[2022-12-22] MEDS: FUROSEMIDE INJ 40 MG/4 ML VIAL IV PUSH (14:51)
[2022-12-22 14:52] LABS: Prothrombin Time 22.3 Seconds (11.1-14.7)
[2022-12-22 14:53] LABS: Partial Thromboplastin Time 45.2 SECONDS (22.3-36.8)
[2022-12-22] MEDS: METOPROLOL TARTRATE 25 MG TABLET PO (15:53)
[2022-12-22 15:54] LABS: Creatine Kinase 5444 U/L (55-170)
--- NOTE | 2022-12-22 15:55 | PC.NURSE ---
Called report to [facility] on [facility].
--- NOTE | 2022-12-22 15:59 | PC.NURSE ---
Called with update -- aware of admission and bed number.
[2022-12-22 16:40] LABS: Appearance Urine Cloudy (Clear); Bacteria Urine 3+ /hpf; Bilirubin Urine Negative (Negative); Blood Urine 3+ (Negative); Color Urine Yellow (Yellow); Glucose Urine UA Negative (Negative); Ketones Urine Negative (Negative); Leukocyte Esterase Ur 3+ LEU/UL (Negative); Nitrate Urine Positive (Negative); Protein Urine 1+ mg/dL (Negative); RBC Urine 0-2 /hpf (0-2); Specific Grav Ur 1.008 (1.001-1.035); Squamous Epithelial Cell Urine None seen /hpf (Few); Urobilinogen Urine 0.2 mg/dL (<2.0); WBC Urine >100 /hpf; pH Urine 7.5 (5.0-9.0)
[2022-12-22 16:43] LABS: Add Urine Microscopic? YES
--- NOTE | 2022-12-22 16:57 | ADMGEN ---
This patient, Kirill Jimenezg, was admitted to Medical Room 260-01. Patient/family oriented to hospital policies and general routines including ID bracelet, bed and alarms, visiting hours, pain management, procedures, bathroom and other care routines, personal items, smoking policy, room service/diet, and visiting hours. Information on how to activate the Rapid Response Team has been discussed. Patient/Family are encouraged to report perceived risks to care and to ask questions if they do not understand what they are told or what they should do.
[2022-12-22 20:57] LABS: Glucose Point of Care 105 mg/dl (65-105)
[2022-12-22] MEDS: SODIUM CHLORIDE 0.9% IV 1,000 ML 150 ML IV CONT (21:34)
[2022-12-22 21:44] LABS: Lactic Acid Reflex 1.7 mmol/L (0.7-2.0)
[2022-12-22] MEDS: GABAPENTIN 300 MG CAPSULE BY MOUTH (21:47)
[2022-12-22] MEDS: METOPROLOL TARTRATE 50 MG TAB BY MOUTH (21:47)
[2022-12-22] MEDS: WARFARIN (*PBKC) 3 MG TABLET 6 MG PO (22:56)
[2022-12-22] MEDS: METOPROLOL TARTRATE INJ 5 MG/5 ML VIAL IV PUSH (23:39)
[2022-12-23] VITALS (17 sets, daily range): BP systolic 135–159; BP diastolic 71–81; PULSE 92–126; RESP 20–24; TEMP 36.4–38.8; O2SAT 92–99
[2022-12-23] MEDS: ACETAMINOPHEN 325 MG TABLET 650 MG PO (02:28)
[2022-12-23] MEDS: ALBUTEROL SULFATE NEB 2.5 MG/3 ML INH INHALATION (04:11)
[2022-12-23] MEDS: METOPROLOL TARTRATE 50 MG TAB PO (04:13)
[2022-12-23 05:29] LABS: Hematocrit 35.7 % (42.0-52.0); Hemoglobin 11.8 g/dL (14.0-18.0); Mean Corpuscular HGB Conc 33.1 g/dl (32-36); Mean Corpuscular Hemoglobin 32.6 pg (26-34); Mean Corpuscular Volume 98.6 fl (80-100); Mean Platelet Volume 9.9 fl (7.4-10.4); Platelet Count Result 126 k/mm3 (150-375); Red Blood Count 3.62 M/mm3 (4.6-6.20); Red Cell Distribution Width 14.6 % (11.5-14.5); White Blood Count 7.3 K/mm3 (4.5-10.0)
[2022-12-23 05:37] LABS: INR 2.2; Prothrombin Time 23.7 Seconds (11.1-14.7)
[2022-12-23 05:54] LABS: Alanine Aminotransferase 45 U/L (6-50); Albumin Level 3.2 g/dL (3.5-5.1); Alkaline Phosphatase 46 U/L (38-126); Anion Gap 4 mmol/L (8-16); Aspartate Amino Transferase 194 U/L (17-59); Bilirubin,Total 1.6 mg/dL (0.2-1.3); Blood Urea Nitrogen 14 mg/dL (9-20); Carbon Dioxide 28 mmol/L (22-30); Chloride 100 mmol/L (98-107); Estimated CRCL calculation 115 ml/min; Estimated Glomerular Filt Rate > 60; Glucose 96 mg/dL (65-110); Magnesium 1.6 mg/dL (1.6-2.3); Potassium 3.2 mmol/L (3.4-5.0); Sodium 132 mmol/L (137-145)
[2022-12-23] MEDS: MAGNESIUM SULF 2 GM/WATER 50ML 2 GM/50 ML BAG IVPB (08:39)
[2022-12-23] MEDS: NIFEdipine 30 MG TAB.ER.24 PO (08:47)
[2022-12-23] MEDS: ZINC SULFATE 220 MG CAPSULE PO (08:47)
[2022-12-23] MEDS: GABAPENTIN 300 MG CAPSULE BY MOUTH ×3 (08:47→16:23)
[2022-12-23] MEDS: CHOLECALCIFEROL 1,000 UNITS TABLET 2000 UNITS PO (08:47)
[2022-12-23] MEDS: POTASSIUM CHLORIDE 20 MEQ TABLET.ER PO ×2 (08:47→16:22)
[2022-12-23] MEDS: ASPIRIN 81 MG ENTERIC TABLET PO (08:48)
[2022-12-23] MEDS: allopurinoL 300 MG TABLET PO (08:48)
[2022-12-23] MEDS: hydrALAZINE HCL 25 MG TABLET PO (08:48)
[2022-12-23] MEDS: METOPROLOL TARTRATE 50 MG TAB BY MOUTH ×3 (08:48→16:23)
[2022-12-23] MEDS: LOSARTAN POTASSIUM 100 MG TABLET PO (08:48)
[2022-12-23] MEDS: glipiZIDE 5 MG TABLET PO ×2 (08:48→16:24)
[2022-12-23] MEDS: OMEGA 3 POLYUNSAT FATTY ACIDS 1 GM CAP PO (08:48)
[2022-12-23 08:58] LABS: Glucose Point of Care 104 mg/dl (65-105)
[2022-12-23 09:09] LABS: Creatine Kinase 4964 U/L (55-170)
[2022-12-23] MEDS: TOLNAFTATE 1% POWDER 45 GM BTL 1 APPLIC TOPICAL (09:19)
[2022-12-23 12:22] LABS: Glucose Point of Care 85 mg/dl (65-105)
--- NOTE | 2022-12-23 16:07 | PM.IMPN ---
Progress Note: A&P Assessment and Plan (1) Urinary tract infection: Code(s): N39.0 - Urinary tract infection, site not specified Status: Acute (2) Rhabdomyolysis: Code(s): M62.82 - Rhabdomyolysis Status: Acute (3) Chronic acquired lymphedema: Code(s): I89.0 - Lymphedema, not elsewhere classified Status: Acute (4) Morbid obesity: Code(s): E66.01 - Morbid (severe) obesity due to excess calories Status: Acute (5) Elevated LFTs: Code(s): R79.89 - Other specified abnormal findings of blood chemistry Status: Acute (6) Atrial fibrillation: Code(s): I48.91 - Unspecified atrial fibrillation Status: Chronic (7) Type 2 diabetes mellitus: Code(s): E11.9 - Type 2 diabetes mellitus without complications Status: Acute (8) Hyperlipidemia: Code(s): E78.5 - Hyperlipidemia, unspecified Status: Acute (9) General weakness: Code(s): R53.1 - Weakness Status: Acute Plan pt is on iv fluids for rhabdomylosis continueto monitor ck pt is on iv rocephin for gram negative uti add lasix for pulmonary congestion as pt is on iv fluids cxr shows congestion add potassium supplements for hypokalaemia Wound care consulted for lymphedema and abdominal sore pt receiving iv fluids watch out for volume overload pt is coumadin for af watch inr in the hospital PT/ OT pt will benefit from SNF placement for weakness has COVID also pt admitted for covid infection also pt not requiring oxygen but needing supportive care no need for remdesivir or steroids watch lfts as lfts running high ? cause pt may benefit from hepatitis panel and us of liver and GB not ordered yet Subjective Date/time seen: 12/23/22 16:07 77-year-old male with morbid obesity, chronic lymphedema, type 2 diabetes mellitus, atrial fibrillation on chronic anticoagulation, hypertension, and other comorbidities who presented to the emergency department via EMS from home for evaluation of shortness of breath. Pt was found to have Covid infection, uti and rhabdomyolysis and elevated liver function Pt goes to wound clinic for chronic lymphedema wraps Pt found to have covid on admission Pt lives at home. His is positive or covid also. Pt has been too weak at home may benefit from SNF placement Pt not needing oxygen but appears weak and has heavy cough Cxr shows mild congestion Review of Systems Review of Systems: Pt complains of weakness and cough Exam Narrative: General:?Well-developed tired Respiratory:?Lungs are clear to auscultation bilaterally. Cardiovascular:?Irregularly irregular rate and rhythm. Gastrointestinal:??Abdomen is soft and nondistended with positive bowel sounds. Skin:??Warm and dry. Extremities:??No cyanosis, clubbing, or significant edema. Radial and pedal pulses intact. Neurological:??Alert and oriented.? Cranial nerves 2-12 are grossly intact. No gross focal deficits to casual conversation. Psychiatric:??Pleasant and cooperative.? Appropriate mood. Obvious short-term memory loss. Objective Data Vital Signs Vital Signs: Vital Signs - 24 hr 12/22/22 16:19 12/22/22 17:28 12/22/22 17:00 Temperature 36.6 C Pulse Rate 113 H 107 H Respiratory Rate 20 Blood Pressure Pulse Oximetry 97 Oxygen Delivery Room Air Oxygen Flow Rate 12/22/22 17:00 12/22/22 16:17 12/22/22 16:59 Temperature 36.7 C Pulse Rate 112 H 110 H Respiratory Rate 24 H Blood Pressure 156/78 H Pulse Oximetry 96 94 Oxygen Delivery Oxygen Flow Rate 12/22/22 17:00 12/22/22 17:15 12/22/22 17:30 Temperature Pulse Rate 121 H 112 H 111 H Respiratory Rate Blood Pressure Pulse Oximetry Oxygen Delivery Oxygen Flow Rate 12/22/22 17:45 12/22/22 21:47 12/22/22 21:45 Temperature 37.0 C Pulse Rate 101 H 126 H 126 H Respiratory Rate 20 Blood Pressure 161/82 H Pulse Oximetry 96 Oxygen Delivery Oxyg
[2022-12-23] MEDS: WARFARIN (*PBKC) 4 MG TABLET 8 MG PO (16:23)
[2022-12-23 17:28] LABS: Glucose Point of Care 101 mg/dl (65-105)
[2022-12-23] MEDS: SODIUM CHLORIDE 0.9% IV 250 ML 70 ML IV CONT (23:15)
[2022-12-23 23:30] LABS: INR 2.3; Prothrombin Time 24.4 Seconds (11.1-14.7)
[2022-12-24] VITALS (16 sets, daily range): BP systolic 116–164; BP diastolic 57–89; PULSE 103–145; RESP 20–24; TEMP 36.4–36.9; O2SAT 96–100
[2022-12-24 08:40] LABS: Glucose Point of Care 91 mg/dl (65-105)
[2022-12-24] MEDS: SILVERGEL (ELTA) 45 ML 1 APPLIC TOPICAL (08:48)
[2022-12-24] MEDS: POTASSIUM CHLORIDE 20 MEQ PACKET (FOR LIQUID) PO (08:48)
[2022-12-24] MEDS: POTASSIUM CHLORIDE 20 MEQ TABLET.ER PO ×2 (08:49→17:51)
[2022-12-24] MEDS: LOSARTAN POTASSIUM 100 MG TABLET PO (08:49)
[2022-12-24] MEDS: OMEGA 3 POLYUNSAT FATTY ACIDS 1 GM CAP PO (08:49)
[2022-12-24] MEDS: glipiZIDE 5 MG TABLET PO ×2 (08:49→17:28)
[2022-12-24] MEDS: GABAPENTIN 300 MG CAPSULE BY MOUTH ×3 (08:49→17:28)
[2022-12-24] MEDS: allopurinoL 300 MG TABLET PO (08:49)
[2022-12-24] MEDS: CHOLECALCIFEROL 1,000 UNITS TABLET 2000 UNITS PO (08:49)
[2022-12-24] MEDS: FUROSEMIDE 40 MG TABLET PO (08:49)
[2022-12-24] MEDS: NIFEdipine 30 MG TAB.ER.24 PO (08:49)
[2022-12-24] MEDS: hydrALAZINE HCL 25 MG TABLET PO (08:50)
[2022-12-24] MEDS: ZINC SULFATE 220 MG CAPSULE PO (08:50)
[2022-12-24] MEDS: ASPIRIN 81 MG ENTERIC TABLET PO (08:50)
[2022-12-24] MEDS: METOPROLOL TARTRATE 50 MG TAB BY MOUTH ×3 (08:58→17:29)
[2022-12-24 10:28] LABS: Alanine Aminotransferase 48 U/L (6-50); Alkaline Phosphatase 46 U/L (38-126); Anion Gap 3 mmol/L (8-16); Aspartate Amino Transferase 151 U/L (17-59); Bilirubin,Total 1.3 mg/dL (0.2-1.3); Blood Urea Nitrogen 18 mg/dL (9-20); Calcium 7.7 mg/dL (8.4-10.2); Carbon Dioxide 26 mmol/L (22-30); Chloride 102 mmol/L (98-107); Creatine Kinase 2038 U/L (55-170); Estimated CRCL calculation 115 ml/min; Estimated Glomerular Filt Rate > 60; Glucose 111 mg/dL (65-110); Potassium 3.8 mmol/L (3.4-5.0); Sodium 131 mmol/L (137-145)
[2022-12-24] MEDS: ALBUTEROL SULFATE NEB 2.5 MG/3 ML INH INHALATION ×3 (10:45→20:50)
[2022-12-24 12:42] LABS: Glucose Point of Care 70 mg/dl (65-105)
[2022-12-24 12:42] LABS: Glucose Point of Care 71 mg/dl (65-105)
[2022-12-24] MEDS: methylPREDNISolone SOD SUCC 40 MG VIAL IV PUSH ×2 (13:20→17:27)
[2022-12-24] MEDS: WARFARIN (*PBKC) 4 MG TABLET 8 MG PO (17:27)
[2022-12-24 17:39] LABS: Glucose Point of Care 135 mg/dl (65-105)
--- NOTE | 2022-12-24 18:20 | PM.IMPN ---
Progress Note: A&P Assessment and Plan (1) Urinary tract infection: Code(s): N39.0 - Urinary tract infection, site not specified Status: Acute Assessment and Plan: Rocephin 1 mg IV q 24 hrs Monitor I&O Monitor clinical response Await urine culture and adjust antibiotics as needed (2) Rhabdomyolysis: Code(s): M62.82 - Rhabdomyolysis Status: Acute Assessment and Plan: Monitor CK-improving from 5444 on admission to 2037 today. Encourage oral fluid intake (3) Chronic acquired lymphedema: Code(s): I89.0 - Lymphedema, not elsewhere classified Status: Acute Assessment and Plan: Skin care precautions Wound care consult (4) Morbid obesity: Code(s): E66.01 - Morbid (severe) obesity due to excess calories Status: Acute Assessment and Plan: Bariatric bed SNF placement on discharge (5) Elevated LFTs: Code(s): R79.89 - Other specified abnormal findings of blood chemistry Status: Acute Assessment and Plan: Monitor CMP Avoid hepatotoxic medications (6) Atrial fibrillation: Code(s): I48.91 - Unspecified atrial fibrillation Status: Chronic Assessment and Plan: Continue Coumadin and metoprolol Monitor VS Daily INR (7) Type 2 diabetes mellitus: Code(s): E11.9 - Type 2 diabetes mellitus without complications Status: Acute Assessment and Plan: Bedside glucose AC and HS Low dose sliding scale insulin AC Hypoglycemia protocol (8) Hyperlipidemia: Code(s): E78.5 - Hyperlipidemia, unspecified Status: Acute Assessment and Plan: Continue home medications (9) General weakness: Code(s): R53.1 - Weakness Status: Acute Assessment and Plan: SNF placement for rehab on discharge Subjective Date/time seen: 12/24/22 1005 Review of Systems ENT: Reports system reviewed and no additional complaints, except as documented Cardiovascular: Comments: Denies any CP, lightheadedness, or dizziness. C/o chronic lymphedema but no additional new edema. Respiratory: Comments: Denies any SOB. C/o occasional nonproductive cough. Gastrointestinal: Comments: Denies any abdominal pain, nausea, vomiting, diarrhea, or constipation. Denies any melena or hematochezia. Genitourinary: Comments: c/o urinary incontinence but denies any increased frequency or dysuria, flank pain or suprapubic abdominal pain. Musculoskeletal: Musculoskeletal: Reports back pain (chronic back pain) Neurologic: Comments: Pt denies any visual disturbances, loss of balance, confusion, or headache Psychiatric: Psychiatric: Reports no additional psychiatric complaints Exam Const: General: comfortable and no acute distress Other: Pt is alert and oriented x 4 and appears in no acute distress. Has audible wheezing but denies any SOB. Is on oxygen at 4 liters per NC but states he doesn't wear any oxygen at home. HENMT: Face/Nose/Sinus: Normal nares present Mouth: Yes moist mucous membranes Eyes: General: appearance normal, both eyes and all related structures Sclera: sclerae normal Pupils: Equal, round and reactive pupils present EOM: EOMs intact bilaterally Neck: Neck: supple and no JVD Resp: Other: Pt appears in no acute respiratory distress. Able to speak in complete sentences without difficulty. No use of accessory muscles appreciated. Lungs have inspiratory/expiratory wheezing to the bilateral upper lobes and greatly diminished to the bilateral lower lobes Cardio: Rate: tachycardic Rhythm: regular rhythm Other: No cardiac rubs, murmur, or gallop noted. GI: Other: Abdomen soft, nondistended, nontender to palpation with bowel sounds present x 4 quadrants. : Other: Unable to access secondary to body habitus and positioning. External catheter draining clear yellow urine. Skin: Other: Skin warm, dry, and pink. Has thickened skin to bilateral lower legs and pannus w
[2022-12-24] MEDS: BUDESONIDE RESPULE NEB 0.5 MG/2 ML AMP INHALATION (20:50)
[2022-12-24] MEDS: TOLNAFTATE 1% POWDER 45 GM BTL 1 APPLIC TOPICAL (21:23)
[2022-12-24] MEDS: EUCERIN CREAM 120 GM JAR 1 APPLIC TOPICAL (21:23)
[2022-12-24 21:44] LABS: INR 2.7; Prothrombin Time 27.4 Seconds (11.1-14.7)
[2022-12-24 23:02] LABS: Glucose Point of Care 171 mg/dl (65-105)
[2022-12-25] VITALS (25 sets, daily range): BP systolic 103–157; BP diastolic 56–81; PULSE 74–164; RESP 20–33; TEMP 36.4–39.4; O2SAT 90–100
[2022-12-25 06:07] LABS: Basophils Percent Auto 0.1 % (0.2-1.2); Hematocrit 33.1 % (42.0-52.0); Immature Granulocyte Absolute 0.07 K/mm3 (0.00-0.031); Immature Granulocyte Percent A 0.9 % (0-0.5); Lymphocytes Absolute Auto 0.43 K/mm3 (0.9-3.2); Lymphocytes Percent Auto 5.8 % (18.3-44.2); Mean Corpuscular HGB Conc 33.2 g/dl (32-36); Mean Corpuscular Hemoglobin 32.1 pg (26-34); Mean Corpuscular Volume 96.5 fl (80-100); Mean Platelet Volume 10.2 fl (7.4-10.4); Monocytes Absolute Auto 0.2 K/mm3 (0.1-0.6); Monocytes Percent Auto 2.8 % (2.6-8.5); Neutrophils Absolute Auto 6.7 K/mm3 (1.3-6.7); Neutrophils Percent Auto 90.4 % (45.5-73.1); Platelet Count Result 136 k/mm3 (150-375); Red Blood Count 3.43 M/mm3 (4.6-6.20); White Blood Count 7.4 K/mm3 (4.5-10.0)
[2022-12-25 06:17] LABS: Anion Gap 5 mmol/L (8-16); Blood Urea Nitrogen 24 mg/dL (9-20); Calcium 7.5 mg/dL (8.4-10.2); Carbon Dioxide 31 mmol/L (22-30); Chloride 102 mmol/L (98-107); Estimated CRCL calculation 103 ml/min; Estimated Glomerular Filt Rate > 60; Glucose 187 mg/dL (65-110); Potassium 3.5 mmol/L (3.4-5.0); Sodium 138 mmol/L (137-145)
[2022-12-25 08:37] LABS: Albumin Level 3.2 g/dL (3.5-5.1); Creatine Kinase 1175 U/L (55-170)
[2022-12-25 09:08] LABS: Prothrombin Time 29.9 Seconds (11.1-14.7)
[2022-12-25 09:14] LABS: Glucose Point of Care 156 mg/dl (65-105)
[2022-12-25] MEDS: GABAPENTIN 300 MG CAPSULE BY MOUTH ×3 (10:09→16:06)
[2022-12-25] MEDS: glipiZIDE 5 MG TABLET PO ×2 (10:09→16:06)
[2022-12-25] MEDS: ASPIRIN 81 MG ENTERIC TABLET PO (10:09)
[2022-12-25] MEDS: hydrALAZINE HCL 25 MG TABLET PO (10:09)
[2022-12-25] MEDS: LOSARTAN POTASSIUM 100 MG TABLET PO (10:09)
[2022-12-25] MEDS: NIFEdipine 30 MG TAB.ER.24 PO (10:10)
[2022-12-25] MEDS: POTASSIUM CHLORIDE 20 MEQ TABLET.ER PO ×2 (10:10→16:06)
[2022-12-25] MEDS: methylPREDNISolone SOD SUCC 40 MG VIAL IV PUSH (10:10)
[2022-12-25] MEDS: FUROSEMIDE 40 MG TABLET PO (10:10)
[2022-12-25] MEDS: OMEGA 3 POLYUNSAT FATTY ACIDS 1 GM CAP PO (10:10)
[2022-12-25] MEDS: ZINC SULFATE 220 MG CAPSULE PO (10:11)
[2022-12-25] MEDS: CHOLECALCIFEROL 1,000 UNITS TABLET 2000 UNITS PO (10:11)
[2022-12-25] MEDS: METOPROLOL TARTRATE 50 MG TAB BY MOUTH ×3 (10:12→16:07)
[2022-12-25] MEDS: allopurinoL 300 MG TABLET PO (10:13)
[2022-12-25] MEDS: BUDESONIDE RESPULE NEB 0.5 MG/2 ML AMP INHALATION ×2 (10:39→20:01)
[2022-12-25] MEDS: ALBUTEROL SULFATE NEB 2.5 MG/3 ML INH INHALATION ×4 (10:40→20:01)
--- NOTE | 2022-12-25 11:03 | ECG_ITS ---
Measurements Intervals [place] Rate: 157 P: OK: 0 QRS: 56 QRSD: 121 T: -46 QT: 272 QTc: 440 Interpretive Statements ATRIAL FIBRILLATION WITH RAPID VENTRICULAR RESPONSE VENTRICULAR PREMATURE COMPLEXES RIGHT BUNDLE BRANCH BLOCK ST-T WAVE ABNORMALITY IN ANTEROLAT/INF LEADS- CONSIDER ISCHEMIA BASELINE ARTIFACT- I, II, III, AVR, AVL, AVF, V1-V2 ABNORMAL ECG COMPARED TO ECG 12/22/2022 10:20:31 HEART RATE HAS INCREASED ST-T WAVE ABNORMALITY NOW PRESENT Electronically Signed On 12-25-2022 11:28:29 CDT by Bryson Flower D.O.
[2022-12-25 11:32] LABS: Alveolar/Arterial O2 Gradient 190.1 mmHg; Base Excess ABG 2.6 mEq/l (+/-2.0); Fractional Inspired Oxygen 40 %; HCO3 ABG 24.4 mEq/l (22.0-26.0); Oxygen Content ABG 15.8 %vol (16.0-22.0); Oxygen Saturation ABG 92.4 % (95.0-100.0); Oxyhemoglobin 89.8 % THb (90.0-100.0); PCO2 ABG 29.2 mmHg (35.0-45.0); PO2 FiO2 Ratio Arterial Blood 1.38 %; Total Hemoglobin 12.5 g/dL (12.0-18.0)
[2022-12-25 11:35] LABS: Device NASAL CANNULA; Modified Allen's Test Pass; Site Drawn RIGHT RADIAL
[2022-12-25] MEDS: METOPROLOL TARTRATE INJ 5 MG/5 ML VIAL IV PUSH ×2 (11:38→12:28)
[2022-12-25] MEDS: EUCERIN CREAM 120 GM JAR 1 APPLIC TOPICAL ×2 (11:39→16:08)
--- NOTE | 2022-12-25 11:58 | PC.NURSE ---
Notified Montserrat Ramirez that the patient was given 5 ml of Metoprolol IV push for Afib with RVR. Patient's HR still in the 140's. Provider also notified that the patient's ABG came back with a PH of 7.54 and CO2 of 29. The patient denies any chest pain or palpitations at this time. Provider ordered another dose of IV Metoprolol 5 mg and to give IV Furosemide dose now.
[2022-12-25] MEDS: FUROSEMIDE INJ 40 MG/4 ML VIAL IV PUSH ×2 (12:28→16:05)
[2022-12-25 12:55] LABS: Glucose Point of Care 124 mg/dl (65-105)
[2022-12-25] MEDS: dilTIAZem 100 MG/100 ML 100 MG/100 ML BAG IV CONT (15:03)
[2022-12-25] MEDS: dilTIAZem HCl INJ 25 MG/5 ML VIAL 20 MG IV PUSH (15:03)
[2022-12-25] MEDS: LIDOCAINE HCL 1% PF INJ 5 ML VIAL INFILTRATE (15:50)
[2022-12-25] MEDS: methylPREDNISolone SOD SUCC 40 MG VIAL 80 MG IV PUSH (16:05)
[2022-12-25] MEDS: ACETAMINOPHEN 325 MG TABLET 650 MG PO (16:06)
[2022-12-25] MEDS: cefTRIAXone 2 GM/NS 100 ML 2 GM/100 ML BAG IVPB (16:08)
[2022-12-25 16:47] LABS: Glucose Point of Care 98 mg/dl (65-105)
--- NOTE | 2022-12-25 17:06 | PM.IMPN ---
Progress Note: A&P Assessment and Plan (1) Urinary tract infection: Code(s): N39.0 - Urinary tract infection, site not specified Status: Acute Assessment and Plan: Rocephin 2 g IV q 24 hrs Monitor I&O Monitor clinical response Await urine culture and adjust antibiotics as needed (2) Rhabdomyolysis: Code(s): M62.82 - Rhabdomyolysis Status: Acute Assessment and Plan: Monitor CK-improving from 5444 on admission to 1175 today. Encourage oral fluid intake (3) Chronic acquired lymphedema: Code(s): I89.0 - Lymphedema, not elsewhere classified Status: Acute Assessment and Plan: Skin care precautions Wound care consult (4) Morbid obesity: Code(s): E66.01 - Morbid (severe) obesity due to excess calories Status: Acute Assessment and Plan: Bariatric bed SNF placement on discharge Turn q 2 hrs (5) Elevated LFTs: Code(s): R79.89 - Other specified abnormal findings of blood chemistry Status: Acute Assessment and Plan: Monitor CMP Avoid hepatotoxic medications (6) Atrial fibrillation: Code(s): I48.91 - Unspecified atrial fibrillation Status: Chronic Assessment and Plan: Continue Coumadin and metoprolol Monitor VS and telemetry Daily INR-therapeutic 3.0 today Developed AF RVR this morning, attempted 2 doses of IV metoprolol 5 mg with no improvement. 20 mg bolus Cardizem followed by drip at 5 mg Moved to IMU (7) Type 2 diabetes mellitus: Code(s): E11.9 - Type 2 diabetes mellitus without complications Status: Acute Assessment and Plan: Bedside glucose AC and HS Low dose sliding scale insulin AC Hypoglycemia protocol (8) Hyperlipidemia: Code(s): E78.5 - Hyperlipidemia, unspecified Status: Acute Assessment and Plan: Continue home medications (9) General weakness: Code(s): R53.1 - Weakness Status: Acute Assessment and Plan: SNF placement for rehab on discharge (10) COVID-19: Code(s): U07.1 - COVID-19 Status: Acute Assessment and Plan: Solumedrol 80 mg BID Oxygen titration per protocol BiPap as tolerated Monitor VS, telemetry, oximetry, ABGs and clinical response Anti pyretics PRN Cooling measures as needed Subjective Date/time seen: 12/25/22 1045 Review of Systems Review of Systems: All systems reviewed & are unremarkable except as noted in HPI and below Constitutional: Constitutional: Reports chills and Reports fatigue Cardiovascular: Comments: Denies any CP, palpitations, or racing heart sensation Respiratory: Respiratory: Reports dyspnea Comments: C/o SOB and states he is just getting very tired Exam Const: General: no acute distress and uncomfortable Other: Pt is alert and oriented x 4 and appears in no acute distress. Has audible wheezing and c/o SOB. Is on oxygen at 4 liters per NC. States he is getting tired HENMT: Face/Nose/Sinus: Normal nares present Mouth: Yes moist mucous membranes Eyes: General: appearance normal, both eyes and all related structures Sclera: sclerae normal Pupils: Equal, round and reactive pupils present EOM: EOMs intact bilaterally Neck: Neck: supple and no JVD Resp: Other: Pt appears in no acute respiratory distress. Able to speak in complete sentences without difficulty. No use of accessory muscles appreciated. Lungs have inspiratory/expiratory wheezing to the bilateral upper lobes and greatly diminished to the bilateral lower lobes Cardio: Rate: tachycardic Rhythm: abnormal rhythm (EKG showing AFib RVR) irregularly irregular Other: No cardiac rubs, murmur, or gallop noted. GI: Other: Abdomen soft, nondistended, nontender to palpation with bowel sounds present x 4 quadrants. : Other: Unable to access secondary to body habitus and positioning. External catheter draining clear yellow urine. Skin: Other: Skin warm, dry, and pink. Has thickened skin t
[2022-12-25] MEDS: WARFARIN (*PBKC) 3 MG TABLET 6 MG PO (18:22)
[2022-12-25] MEDS: CENTRAL LINE FLUSH 10 ML IV PUSH (20:55)
[2022-12-25 21:13] LABS: INR 3.5; Prothrombin Time 33.7 Seconds (11.1-14.7)
[2022-12-25 21:21] LABS: Glucose Point of Care 102 mg/dl (65-105)
[2022-12-26] VITALS (20 sets, daily range): BP systolic 108–150; BP diastolic 56–97; PULSE 81–142; RESP 18–32; TEMP 36.2–36.7; O2SAT 93–100; BMI 10.0
--- NOTE | 2022-12-26 | ECHO_ITS ---
Patient Info Name: Kirill Cardoso Age: 77 years : 1945 Gender: Male Ht: 71 in Wt: 382 lbs BSA: 3.04 m2 HR: 90 bpm BP: 150 / 67 mmHg Heart Rhythm: Tachycardia, Atrial Fibrillation Technical Quality: Other Exam Date: 12/26/2022 11:01 AM Exam Location: [facility] Patient Status: Inpatient Admit Date: 12/23/2022 Staff Ordering Physician: Romel Watson MD Carpenter Inspector: Rosette Greenberg RDCS Attending Provider: Priscila Naidu PA-C Exam Type: CA echo dop color flow w con Study Info Indications J96.00 - Acute respiratory failure, unspecified whether with hypoxia or hypercapnia Complete two-dimensional, color flow and Doppler transthoracic echocardiogram is performed with contrast to opacify the left ventricle and to improve the deliniation of the left ventricle endocardial borders. Contrast/Agitated Saline Contrast/Ag. Saline: Definity Amount: 4.00 ml Administered By: Rosette Greenberg [facility] Summary 1. Normal left ventricular size with moderate concentric hypertrophy. Good systolic function of all segments with ejection fraction 61%. Diastolic function indeterminate. 2. Right ventricular chamber dimension is mildly enlarged and mildly hypokinetic.. 3. Right atrial chamber dimension is mildly enlarged. 4. Left atrial chamber dimension is severely enlarged. 5. There is mild aortic valve calcification with no significant aortic valve stenosis. Peak velocity of 1.7 m/s, mean gradient of 7 mmHg, and aortic valve area of 1.64 cm2. 6. There is mild mitral valve regurgitation. 7. There is mild tricuspid valve regurgitation. 8. Dilated inferior vena cava with <50% collapse upon inspiration consistent with significantly elevated right atrial pressure, 20 mmHg. 9. There is trivial pericardial effusion. 10. Atrial fibrillation with a rapid ventricular response. 11. Technically difficult study, IV echo contrast used. Left Ventricle Left ventricular chamber dimension is normal. Left ventricular systolic function is normal, estimated at 60-65%. There is moderately increased left ventricular wall thickness. Left ventricular septal wall motion is normal. The left ventricular diastolic function is indeterminate. Right Ventricle Right ventricular chamber dimension is mildly enlarged and mildly hypokinetic.. Right ventricular systolic function is reduced. Left Atria Left atrial chamber dimension is severely enlarged. Right Atria Right atrial chamber dimension is mildly enlarged. Aortic Valve The aortic valve is trileaflet. There is no aortic valve sclerosis. There is mild aortic valve calcification with no significant aortic valve stenosis. Peak velocity of 1.7 m/s, mean gradient of 7 mmHg, and aortic valve area of 1.64 cm2. There is no aortic valve regurgitation. There is mild aortic valve calcification. Pulmonic Valve The pulmonic valve is normal. There is no pulmonic valve stenosis. There is no pulmonic regurgitation. Mitral Valve The mitral valve has normal leaflets. There is no mitral valve stenosis. There is mild mitral valve regurgitation. The mitral valve annulus is mildly calcified. Tricuspid Valve The tricuspid valve leaflets are normal. There is no significant tricuspid valve stenosis. There is mild tricuspid valve regurgitation. Mild pulmonary hypertension, estimated pulmonary arterial systolic pressure is 41 mmHg. Pericardium/Pleural The pericardium appears normal. There is
[2022-12-26] MEDS: CENTRAL LINE FLUSH 10 ML IV PUSH ×3 (05:44→21:28)
[2022-12-26 05:58] LABS: Basophils Percent Auto 0.4 % (0.2-1.2); Hematocrit 32.4 % (42.0-52.0); Hemoglobin 10.4 g/dL (14.0-18.0); Immature Granulocyte Percent A 0.9 % (0-0.5); Lymphocytes Absolute Auto 0.48 K/mm3 (0.9-3.2); Lymphocytes Percent Auto 4.5 % (18.3-44.2); Mean Corpuscular HGB Conc 32.1 g/dl (32-36); Mean Corpuscular Hemoglobin 32.3 pg (26-34); Mean Corpuscular Volume 100.6 fl (80-100); Mean Platelet Volume 10.6 fl (7.4-10.4); Monocytes Absolute Auto 0.3 K/mm3 (0.1-0.6); Monocytes Percent Auto 2.8 % (2.6-8.5); Neutrophils Absolute Auto 9.8 K/mm3 (1.3-6.7); Neutrophils Percent Auto 91.4 % (45.5-73.1); Platelet Count Result 148 k/mm3 (150-375); Red Blood Count 3.22 M/mm3 (4.6-6.20); Red Cell Distribution Width 14.6 % (11.5-14.5); White Blood Count 10.7 K/mm3 (4.5-10.0)
[2022-12-26 06:09] LABS: INR 3.8; Prothrombin Time 36.3 Seconds (11.1-14.7)
[2022-12-26 07:49] LABS: Glucose Point of Care 137 mg/dl (65-105)
[2022-12-26] MEDS: ALBUTEROL SULFATE NEB 2.5 MG/3 ML INH INHALATION ×3 (07:49→20:15)
[2022-12-26] MEDS: BUDESONIDE RESPULE NEB 0.5 MG/2 ML AMP INHALATION ×2 (07:49→20:15)
[2022-12-26] MEDS: dilTIAZem 100 MG/100 ML 100 MG/100 ML BAG IV CONT (08:22)
[2022-12-26] MEDS: METOPROLOL TARTRATE 50 MG TAB BY MOUTH ×3 (08:24→21:28)
[2022-12-26] MEDS: LOSARTAN POTASSIUM 100 MG TABLET PO (08:25)
[2022-12-26] MEDS: CHOLECALCIFEROL 1,000 UNITS TABLET 2000 UNITS PO (08:25)
[2022-12-26] MEDS: OMEGA 3 POLYUNSAT FATTY ACIDS 1 GM CAP PO (08:26)
[2022-12-26] MEDS: POTASSIUM CHLORIDE 20 MEQ TABLET.ER PO ×2 (08:26→16:36)
[2022-12-26] MEDS: glipiZIDE 5 MG TABLET PO ×2 (08:26→16:34)
[2022-12-26] MEDS: ASPIRIN 81 MG ENTERIC TABLET PO (08:26)
[2022-12-26] MEDS: NIFEdipine 30 MG TAB.ER.24 PO (08:26)
[2022-12-26] MEDS: allopurinoL 300 MG TABLET PO (08:26)
[2022-12-26] MEDS: GABAPENTIN 300 MG CAPSULE BY MOUTH ×3 (08:26→16:33)
[2022-12-26] MEDS: hydrALAZINE HCL 25 MG TABLET PO (08:26)
[2022-12-26] MEDS: methylPREDNISolone SOD SUCC 40 MG VIAL 80 MG IV PUSH (08:27)
[2022-12-26] MEDS: FUROSEMIDE INJ 40 MG/4 ML VIAL IV PUSH ×2 (08:29→16:33)
[2022-12-26] MEDS: ZINC SULFATE 220 MG CAPSULE PO (08:29)
[2022-12-26] MEDS: ACETAMINOPHEN 325 MG TABLET 650 MG PO (08:35)
--- NOTE | 2022-12-26 09:34 | PM.IMPN ---
Progress Note: A&P Assessment and Plan (1) Acute respiratory failure with hypoxia: Code(s): J96.01 - Acute respiratory failure with hypoxia Status: Acute Assessment and Plan: Pancho was on room air on admission. CXR showing airspace opacities mid and lower lung zones and small left pleural effusion. Patient developed worsening hypoxia. CXR 12/25 showing bibasilar airspace disease c/w PNA. Check sputum cx. Add Ag. Tolerated BiPAP last night. Wean O2 as tolerated. Lasix added for possible pulmonary edema but felt less likely. Check Echo (2) Sepsis: Code(s): A41.9 - Sepsis, unspecified organism Status: Acute Assessment and Plan: Present on admisison with tachycardia, fever and tachypnea. Still having fevers which could be from COVID. RSV and influenza negative. Consider also bacterial lung infection. Doubt fever related to UTI now that he is Day 5 of approrpiate treatment with Rocephin. Azithromycin added yesterday (Day 2). Check MRSA nasal swab and add Vancomycin. Wean o2 as toerlated. (3) COVID-19: Code(s): U07.1 - COVID-19 Status: Acute Assessment and Plan: Patient diagnosed with COVID on 12/22 after having several days of cold symptoms prior to admission. He initially was on room air. He has developed O2 requirement since admission. Solumedrol started but will change this to Decadron and add Remdesivir. Spoke with pharmacy and okay to give Remdesivir despite INR 3.8. Wean o2 as tolerated. Daily INR (4) Atrial fibrillation: Code(s): I48.91 - Unspecified atrial fibrillation Status: Chronic Assessment and Plan: Patient wit chronic AFib and is on Coumadin for anticoagulation and metoprolol 50mg TID for rate control. EKG on admission showing AFib with HR 103 and Rt BBB. HR has been mildly elevated since admission but worsened yesterday. Attempted 2 doses of IV metoprolol 5 mg with no improvement. He was given 20mg bolus and started on a Diltiazem drip and moved to the IMU. HR mostly better controlled. Will transition to oral Diltiazem. Monitor on tele. INR therapeutic today at 3.8 Continue daily INR. Hold Coumadin for today. (5) Urinary tract infection: Code(s): N39.0 - Urinary tract infection, site not specified Status: Acute Assessment and Plan: UA noted. Rocephin 1gm started on 12/22. Urine culture growing Proteus sensitive to Rocephin. Still with fevers so Rocephin increased to 2 g IV q 24 hrs on 12/25 (Day 5 of appropriate abx). (6) Rhabdomyolysis: Code(s): M62.82 - Rhabdomyolysis Status: Acute Assessment and Plan: TCK 5444 on admission. [place] rhabdomyolysis related to viral etiology from COVID. Not on a statin at home. UA showing 3+ blood but no RBCs. Repeat TCK trending down. Repeat value again today. Was on IV fluids but since have stopped. Renal function pending this morning. Monitor closely now that he is on Lasix IV. (7) Obstructive sleep apnea: Code(s): G47.33 - Obstructive sleep apnea (adult) (pediatric) Status: Chronic Assessment and Plan: Noncomplinat with PAP at home but tolerating here. Continue BiPAP at night and with naps. (8) Elevated LFTs: Code(s): R79.89 - Other specified abnormal findings of blood chemistry Status: Acute Assessment and Plan: Bili up to 2.0 and AST up to 194 but otherwise normal LFTs. [place] related to rhabdomyolysis. TBili normal now and AST trending down. Follow intermittently. (9) Type 2 diabetes mellitus: Code(s): E11.9 - Type 2 diabetes mellitus without complications Status: Acute Assessment and Plan: A1c 5.0. The patient's blood glucose was reviewed on 12/26 Glucose remains well controlled. Continue AccuCheks covering with sliding scale. Hypoglycemia protocol available as needed. Continue to monitor (10) Chronic acquired lymphedema: Code(s): I89.0 - Lymphedema, not elsewhere classified
[2022-12-26 09:56] LABS: Anion Gap 7 mmol/L (8-16); Blood Urea Nitrogen 32 mg/dL (9-20); Calcium 7.5 mg/dL (8.4-10.2); Carbon Dioxide 29 mmol/L (22-30); Chloride 102 mmol/L (98-107); Estimated CRCL calculation 84 ml/min; Estimated Glomerular Filt Rate > 60; Glucose 172 mg/dL (65-110); Potassium 3.5 mmol/L (3.4-5.0); Sodium 138 mmol/L (137-145)
[2022-12-26 10:19] LABS: Creatine Kinase 583 U/L (55-170)
[2022-12-26] MEDS: PERFLUTREN LIPID MICROSPHERES 1.5 ML VIAL DILUTED TO 10 ML TOTAL VOLUME IV PUSH (10:50)
[2022-12-26 11:11] LABS: Alanine Aminotransferase 53 U/L (6-50)
--- NOTE | 2022-12-26 11:46 | PM.CNCAR ---
Assessment and Plan Assessment and plan (1) Atrial fibrillation: Code(s): I48.91 - Unspecified atrial fibrillation Status: Chronic Assessment and Plan: persistent AFib with rapid ventricular response here in the [facility] with respiratory failure and COVID. --Currently on Cardizem 5 milligrams/hour drip --p.o. Cardizem will be started shortly with 30 mg q.6 hours on top of his usual metoprolol 50 mg q.8 hours. -- Agree with above, will follow with you and assist in rate control. (2) Acute respiratory failure with hypoxia: Code(s): J96.01 - Acute respiratory failure with hypoxia Status: Acute Assessment and Plan: Has COVID and pneumonia, probably some mild acute diastolic CHF due to tachycardia,a degree of chronic respiratory failure due to obesity / hypoventilation as well. -- Treatment per hospitalist -- echo is pending (3) COVID-19: Code(s): U07.1 - COVID-19 Status: Acute Assessment and Plan: treatment per hospitalist (4) Chronic anticoagulation: Code(s): Z79.01 - FPC (current) use of anticoagulants Status: Acute Assessment and Plan: takes warfarin probably 8 mg daily except for 6 mg on Tuesdays and Saturdays. -- INR is creeping up, now 3.8, due to illness, antibiotics etc.. --Will hold today and probably Temporarily reduce daily dose to 6 mg daily for now. (5) Lymphedema of both lower extremities: Code(s): I89.0 - Lymphedema, not elsewhere classified Status: Chronic Assessment and Plan: Chronic lymphedema, patient says no change. Uses a foot pump on his left lower extremity at home. -- interestingly not on any diuretic at home. (6) Rhabdomyolysis: Code(s): M62.82 - Rhabdomyolysis Status: Acute Assessment and Plan: Rhabdomyolysis, CPK was around 5000 on admission, improving. -- Trying to avoid diuretics. History of Present Illness History of Present Illness Consult date/time: 12/26/22 11:46 Reason For Visit: COVID/CHF/ Generalize Weakness Narrative: Kirill Cardoso is a 77 y.o. male whom we were asked to see at the request of nurse practitioner Montserrat Villasenor for advice and opinion regarding his atrial fibrillation, in consultation. He has history of chronic persistent Atrial fibrillation and is anticoagulated with warfarin, followed by Dr. Christopher. Also: morbid obesity, hypertension, diabetes, and lower extremity lymphedema. The patient had some upper respiratory symptoms, mild productive cough, wheezing and weakness for few days at home. He fell on 12/22/2022. (he told me that he fell off his bed because his left foot folded under him, but other accounts report he missed the toilet and slid onto the floor.) He could not get up. He became very frightened and short of breath. He denies any chest pain or sensation of palpitations.EMS came and brought him to the emergency room for hip pain. He later was found to be in atrial fibrillation with rapid ventricular rate, up in the 120s and was started on a Cardizem drip. He was COVID positive. His chest x-ray shows some congestion, and probable pneumonia and His BNP was 4500 was given Lasix 40 mg IV push. He was also found to have a UTI, and rhabdomyolysis with his CPK 5400 on admission. did not seem to respond well to metoprolol 5 mg IV push x2 and was started on a Cardizem drip. Heart rate was up in the 130s earlier today, but is currently in the 80s-100 on Cardizem 5 milligrams/hour and usual home metoprolol dose. Review of Systems Constitutional: Constitutional: Reports fatigue, Reports fever(s) ( Low-grade) and Reports weakness Eyes: Eyes: Reports no additional eye complaints ENT: Denies epistaxis, Reports nasal congestion and Reports nasal discharge Cardiovascular: Cardiovascular: Denies chest pain, Reports pedal edema ( no worse than usual, left greater than right, uses leg pumps at home), Denie
[2022-12-26 11:48] LABS: Glucose Point of Care 159 mg/dl (65-105)
[2022-12-26] MEDS: REMDESIVIR 200 MG/NS 250 ML 200 MG/250 ML BAG 250 MG IVPB (11:48)
[2022-12-26] MEDS: dilTIAZem HCL 30 MG TABLET PO ×2 (11:54→17:01)
--- NOTE | 2022-12-26 14:55 | PCSTNOTE ---
Patient seen for bedside swallowing evaluation. In bed with head elevated, patient alert and friendly. Per patient self report he has no difficulty with eating or drinking. Trials of thin liquid via cup and straw, pureed food via spoon, and piece of maida cracker were presented. Patient demonstrated no difficulty with any aspect of chewing or swallowing. No signs of aspiration were noted (no coughing, eyes watering, no complaint of sensation of material getting stuck or going down the wrong way ). Patient fed self using left hand due to difficulty with tremors in right hand (dominate hand). Based on this evaluation, it is recommended that this patient receive a regular texture diet with thin liquids. Please note that silent aspiration cannot be ruled out at bedside and can only be detected with a modified barium swallow study. No further speech therapy is recommended for this patient. Thank you for the referral of this patient.
[2022-12-26] MEDS: cefTRIAXone 2 GM/NS 100 ML 2 GM/100 ML BAG IVPB (14:56)
[2022-12-26] MEDS: EUCERIN CREAM 120 GM JAR 1 APPLIC TOPICAL (16:35)
[2022-12-26] MEDS: INSULIN ASPART (*BKC) 100 UNITS/ML SUB-Q (16:38)
[2022-12-26 17:07] LABS: Glucose Point of Care 210 mg/dl (65-105)
[2022-12-26 20:40] LABS: Glucose Point of Care 244 mg/dl (65-105)
[2022-12-27] VITALS (28 sets, daily range): BP systolic 107–138; BP diastolic 59–74; PULSE 79–121; RESP 16–30; TEMP 36–36.7; O2SAT 87–96
[2022-12-27] MEDS: dilTIAZem HCL 30 MG TABLET PO ×5 (05:04→21:07)
[2022-12-27] MEDS: METOPROLOL TARTRATE 50 MG TAB BY MOUTH ×3 (05:04→21:06)
[2022-12-27] MEDS: CENTRAL LINE FLUSH 10 ML IV PUSH ×3 (05:05→21:07)
[2022-12-27] MEDS: traMADol HCL (*CRX) 50 MG TABLET PO (05:16)
[2022-12-27 05:32] LABS: Basophils Absolute Auto 0.1 K/mm3 (0.0-0.1); Basophils Percent Auto 0.4 % (0.2-1.2); Hematocrit 30.6 % (42.0-52.0); Hemoglobin 10.2 g/dL (14.0-18.0); Immature Granulocyte Absolute 0.16 K/mm3 (0.00-0.031); Immature Granulocyte Percent A 1.1 % (0-0.5); Lymphocytes Absolute Auto 0.66 K/mm3 (0.9-3.2); Lymphocytes Percent Auto 4.7 % (18.3-44.2); Mean Corpuscular HGB Conc 33.3 g/dl (32-36); Mean Platelet Volume 10.8 fl (7.4-10.4); Monocytes Absolute Auto 0.5 K/mm3 (0.1-0.6); Monocytes Percent Auto 3.2 % (2.6-8.5); Neutrophils Absolute Auto 12.7 K/mm3 (1.3-6.7); Neutrophils Percent Auto 90.6 % (45.5-73.1); Nucleated Red Blood Cells Absolute Auto 0.1 K/mm3 (0.0-0.012); Nucleated Red Blood Cells Perc 0.6 % (0.0-0.2); Platelet Count Result 170 k/mm3 (150-375); Red Blood Count 3.09 M/mm3 (4.6-6.20); Red Cell Distribution Width 14.3 % (11.5-14.5)
[2022-12-27 05:43] LABS: INR 4.5; Prothrombin Time 41.3 Seconds (11.1-14.7)
[2022-12-27 05:48] LABS: Alanine Aminotransferase 61 U/L (6-50); Alkaline Phosphatase 46 U/L (38-126); Anion Gap 3 mmol/L (8-16); Aspartate Amino Transferase 90 U/L (17-59); Bilirubin,Total 1.1 mg/dL (0.2-1.3); Blood Urea Nitrogen 42 mg/dL (9-20); Calcium 7.5 mg/dL (8.4-10.2); Carbon Dioxide 30 mmol/L (22-30); Chloride 102 mmol/L (98-107); Creatine Kinase 434 U/L (55-170); Estimated CRCL calculation 101 ml/min; Estimated Glomerular Filt Rate > 60; Glucose 145 mg/dL (65-110); Potassium 5.4 mmol/L (3.4-5.0); Sodium 135 mmol/L (137-145)
[2022-12-27 08:25] LABS: Glucose Point of Care 146 mg/dl (65-105)
[2022-12-27] MEDS: LOSARTAN POTASSIUM 100 MG TABLET PO (08:50)
[2022-12-27] MEDS: allopurinoL 300 MG TABLET PO (08:50)
[2022-12-27] MEDS: hydrALAZINE HCL 25 MG TABLET PO (08:50)
[2022-12-27] MEDS: OMEGA 3 POLYUNSAT FATTY ACIDS 1 GM CAP PO (08:50)
[2022-12-27] MEDS: glipiZIDE 5 MG TABLET PO ×2 (08:50→16:51)
[2022-12-27] MEDS: CHOLECALCIFEROL 1,000 UNITS TABLET 2000 UNITS PO (08:51)
[2022-12-27] MEDS: FUROSEMIDE INJ 40 MG/4 ML VIAL IV PUSH ×2 (08:52→16:50)
[2022-12-27] MEDS: ASPIRIN 81 MG ENTERIC TABLET PO (08:52)
[2022-12-27] MEDS: GABAPENTIN 300 MG CAPSULE BY MOUTH ×3 (08:52→16:50)
[2022-12-27] MEDS: ZINC SULFATE 220 MG CAPSULE PO (08:53)
[2022-12-27] MEDS: EUCERIN CREAM 120 GM JAR 1 APPLIC TOPICAL ×2 (08:54→16:53)
[2022-12-27] MEDS: SILVERGEL (ELTA) 45 ML 1 APPLIC TOPICAL ×2 (08:54→16:51)
[2022-12-27] MEDS: BUDESONIDE RESPULE NEB 0.5 MG/2 ML AMP INHALATION ×2 (09:00→20:51)
[2022-12-27] MEDS: ALBUTEROL SULFATE NEB 2.5 MG/3 ML INH INHALATION ×4 (09:00→20:50)
[2022-12-27] MEDS: REMDESIVIR 100 MG/NS 250 ML 100 MG/250 ML BAG 250 MG IVPB (10:35)
[2022-12-27 12:03] LABS: Glucose Point of Care 213 mg/dl (65-105)
[2022-12-27] MEDS: INSULIN ASPART (*BKC) 100 UNITS/ML SUB-Q ×2 (12:15→16:50)
--- NOTE | 2022-12-27 12:31 | PM.PNCARD ---
Progress Note: A&P Assessment and Plan (1) Atrial fibrillation: Code(s): I48.91 - Unspecified atrial fibrillation Status: Chronic Assessment and Plan: Permanent AFib with rapid ventricular response here in the hospital while sick with respiratory failure and COVID. -- Cardizem 30 mg q.6 hours was added to the patient's home med, metoprolol, 50 mg q.8 hours -- heart rate is reasonably controlled. -- Warfarin on hold due to high INR. (2) Acute respiratory failure with hypoxia: Code(s): J96.01 - Acute respiratory failure with hypoxia Status: Acute Assessment and Plan: Has COVID and pneumonia, possibly some mild acute on chronic diastolic CHF due to tachycardia initially as Pro BNP was 4490 on admission. Prob a degree of chronic respiratory failure due to obesity / hypoventilation as well. --Worsened since admission --Hard to determine how much is due to acute on chronic diastolic CHF vs COVID . Had been hydrated little due to his rhabdomyolysis. -- BUN is rising (2nd to rhabdo? steroids? 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 -- INR is creeping up due to illness, antibiotics etc.. -- Last dose 12/25/2022 -- Continue daily INRs. -- Patient also takes aspirin at home. Discussed with him; no particular reason for it. Will discontinue aspirin to reduce his bleeding risk. (5) Lymphedema of both lower extremities: Code(s): I89.0 - Lymphedema, not elsewhere classified Status: Chronic Assessment and Plan: Chronic lymphedema, patient says no change. Uses a foot pump on his left lower extremity at home. -- interestingly not on any diuretic at home. (6) Rhabdomyolysis: Code(s): M62.82 - Rhabdomyolysis Status: Acute Assessment and Plan: Rhabdomyolysis, CPK was around 5000 on admission, -- improving. Subjective Date/time seen: Follow-up for persistent AFib with RVR, anticoagulation with warfarin followed by Dr. Christopher in the office. Admitted with respiratory symptoms, weakness and fall, COVID positive, AFib RVR , mild rhabdomyolysis. History of lymphedema, hypertension, diabetes. 12/16/2022: Cardizem drip held, started on p.o. Cardizem in addition to his usual metoprolol. Warfarin on hold due to INR of 3.8. 12/27/22 12:31 Slept better. High-flow nasal cannula alternating with BiPAP. INR up to 4.5. BUN and potassium up a little. Tele shows a fib rate 80-105 BPM. CXR worse. Echo as below, EF 61%, some right ventricular enlargement. Review of Systems Review of Systems: Less SOB, still w/ coughing, No abdominal problems or nausea, No bleeding,no chest pain or back pain. Exam Const: General: cooperative, comfortable and confusion ( possible some confusion, inconsistent historian) Orientation/consciousness: oriented to person, patient oriented x3 and confusion ( possible some confusion, inconsistent historian) Other: pleasant, morbidly obese older gentleman, no distress, wearing BiPAP on my arrival HENMT: Mouth: Yes moist mucous membranes Eyes: General: appearance normal, both eyes and all related structures EOM: EOMs intact bilaterally Neck: Neck: supple and no JVD ( none visible, neck obese) Thyroid: thyroid normal Carotids: no bruits Resp: Effort & Inspection: normal respiratory effort Auscultation: wheezes ( diffuse mild expiratory wheezes) Other: overall diminished breath sounds Cardio: Rate: regular rate Rhythm: regular rhythm and abnormal rhythm irregularly irregular Heart sounds: Murmur heart sound present
--- NOTE | 2022-12-27 12:44 | PCPTNOTE ---
checked with nursing and asked to come back after 1300
[2022-12-27] MEDS: cefTRIAXone 2 GM/NS 100 ML 2 GM/100 ML BAG IVPB (14:53)
--- NOTE | 2022-12-27 15:50 | PM.IMPN ---
Progress Note: A&P Assessment and Plan (1) Acute respiratory failure with hypoxia: Code(s): J96.01 - Acute respiratory failure with hypoxia Status: Acute Assessment and Plan: Patient was on room air on admission. CXR on admission showing mild congestive changes. Patient developed worsening hypoxia. Etiology unclear but felt COVID and/or bacterial PNA and/or CHF. CXR 12/27 reviewed showing diffuse bilateral airspace disease. BCx NGTD. Sputum cx pending. Tolerating BiPAP. Wean BiPAP to sleep time. Continue Lasix IV. last night. Wean O2 as tolerated. (2) Sepsis: Code(s): A41.9 - Sepsis, unspecified organism Status: Acute Assessment and Plan: Present on admisison with tachycardia, fever and tachypnea. Still having fevers which could be from COVID. RSV and influenza negative. Consider also bacterial lung infection. Doubt fever related to UTI now that he is Day 5 of approrpiate treatment with Rocephin. Azithromycin added (Day 3) and Vanco (Day 2). MRSA nasal swab pending. Wean O2 as tolerated. (3) COVID-19: Code(s): U07.1 - COVID-19 Status: Acute Assessment and Plan: Patient diagnosed with COVID on 12/22 after having several days of cold symptoms prior to admission. He initially was on room air. He has developed O2 requirement since admission. Solumedrol started but changed to Decadron and Remdesivir added. Wean O2 as tolerated. Daily INR (4) Atrial fibrillation: Code(s): I48.91 - Unspecified atrial fibrillation Status: Chronic Assessment and Plan: Patient wit chronic AFib and is on Coumadin for anticoagulation and metoprolol 50mg TID for rate control. EKG on admission showing AFib with HR 103 and Rt BBB. HR has been mildly elevated since admission but worsened; IV metoprolol 5 mg with no improvement. He was given 20mg bolus and started on a Diltiazem drip and moved to the IMU. Transitioned to oral Diltiazem. HR mostly better controlled. Monitor on tele. INR therapeutic today at 4.5 Continue daily INR. Continue to hold Coumadin (5) Urinary tract infection: Code(s): N39.0 - Urinary tract infection, site not specified Status: Acute Assessment and Plan: UA noted. Rocephin 1gm started on 3/14. Urine culture growing Proteus sensitive to Rocephin. Still with fevers so Rocephin increased to 2 g IV q 24 hrs on 12/25 (Day 6 of appropriate abx). (6) Rhabdomyolysis: Code(s): M62.82 - Rhabdomyolysis Status: Acute Assessment and Plan: TCK 5444 on admission. [place] rhabdomyolysis related to viral etiology from COVID. Not on a statin at home. UA showing 3+ blood but no RBCs. Repeat TCK trending down and now 434 today. Was on IV fluids but since have stopped. Renal function stable. Monitor closely now that he is on Lasix IV. (7) Obstructive sleep apnea: Code(s): G47.33 - Obstructive sleep apnea (adult) (pediatric) Status: Chronic Assessment and Plan: Noncomplinat with PAP at home but tolerating here. Continue BiPAP and wean to night use and with naps. (8) Elevated LFTs: Code(s): R79.89 - Other specified abnormal findings of blood chemistry Status: Acute Assessment and Plan: Bili up to 2.0 and AST up to 194 but otherwise normal LFTs. [place] related to rhabdomyolysis. TBili normal now and AST trending down. Follow intermittently. (9) Type 2 diabetes mellitus: Code(s): E11.9 - Type 2 diabetes mellitus without complications Status: Acute Assessment and Plan: A1c 5.0. The patient's blood glucose was reviewed on 12/27 Glucose elevated at times. Continue AccuCheks covering with sliding scale. Hypoglycemia protocol available as needed. Continue to monitor (10) Chronic acquired lymphedema: Code(s): I89.0 - Lymphedema, not elsewhere classified Status: Acute Assessment and Plan: Routine skin care (11) General weakness: Code(s): R53.1 - W
[2022-12-27 16:56] LABS: Glucose Point of Care 223 mg/dl (65-105)
[2022-12-27 20:44] LABS: Glucose Point of Care 221 mg/dl (65-105)
[2022-12-27 21:48] LABS: Vancomycin Trough 14.2 ug/mL (10.0-20.0)
[2022-12-28] VITALS (27 sets, daily range): BP systolic 95–128; BP diastolic 55–69; PULSE 81–106; RESP 18–24; TEMP 36.3–36.9; O2SAT 91–98; BMI 11.0
[2022-12-28] MEDS: dilTIAZem HCL 30 MG TABLET PO ×3 (00:28→13:40)
[2022-12-28] MEDS: CENTRAL LINE FLUSH 10 ML IV PUSH ×3 (05:50→21:26)
[2022-12-28] MEDS: METOPROLOL TARTRATE 50 MG TAB BY MOUTH ×3 (05:50→21:26)
[2022-12-28 06:16] LABS: Basophils Absolute Auto 0.1 K/mm3 (0.0-0.1); Basophils Percent Auto 0.6 % (0.2-1.2); Hematocrit 31.9 % (42.0-52.0); Hemoglobin 10.2 g/dL (14.0-18.0); Immature Granulocyte Absolute 0.41 K/mm3 (0.00-0.031); Lymphocytes Absolute Auto 1.03 K/mm3 (0.9-3.2); Lymphocytes Percent Auto 7.4 % (18.3-44.2); Mean Corpuscular Hemoglobin 32.2 pg (26-34); Mean Corpuscular Volume 100.6 fl (80-100); Mean Platelet Volume 10.8 fl (7.4-10.4); Monocytes Absolute Auto 0.6 K/mm3 (0.1-0.6); Monocytes Percent Auto 4.3 % (2.6-8.5); Neutrophils Absolute Auto 11.8 K/mm3 (1.3-6.7); Neutrophils Percent Auto 84.7 % (45.5-73.1); Nucleated Red Blood Cells Absolute Auto 0.2 K/mm3 (0.0-0.012); Nucleated Red Blood Cells Perc 1.2 % (0.0-0.2); Platelet Count Result 187 k/mm3 (150-375); Red Blood Count 3.17 M/mm3 (4.6-6.20); Red Cell Distribution Width 14.6 % (11.5-14.5); White Blood Count 13.9 K/mm3 (4.5-10.0)
[2022-12-28 06:29] LABS: INR 4.5; Prothrombin Time 41.6 Seconds (11.1-14.7)
[2022-12-28 07:19] LABS: Alanine Aminotransferase 63 U/L (6-50); Albumin Level 2.9 g/dL (3.5-5.1); Alkaline Phosphatase 49 U/L (38-126); Anion Gap 2 mmol/L (8-16); Aspartate Amino Transferase 85 U/L (17-59); Bilirubin,Total 1.1 mg/dL (0.2-1.3); Blood Urea Nitrogen 44 mg/dL (9-20); Calcium 7.4 mg/dL (8.4-10.2); Carbon Dioxide 32 mmol/L (22-30); Chloride 102 mmol/L (98-107); Estimated CRCL calculation 101 ml/min; Estimated Glomerular Filt Rate > 60; Glucose 192 mg/dL (65-110); Potassium 4.7 mmol/L (3.4-5.0); Sodium 136 mmol/L (137-145)
[2022-12-28 07:26] LABS: NT Pro B Type Natriuretic Pept 1670 pg/mL (19.9-100)
[2022-12-28 07:39] LABS: Glucose Point of Care 201 mg/dl (65-105)
[2022-12-28] MEDS: BUDESONIDE RESPULE NEB 0.5 MG/2 ML AMP INHALATION ×2 (08:00→19:40)
[2022-12-28] MEDS: ALBUTEROL SULFATE NEB 2.5 MG/3 ML INH INHALATION ×4 (08:00→19:41)
[2022-12-28] MEDS: INSULIN ASPART (*BKC) 100 UNITS/ML SUB-Q ×2 (09:12→13:23)
[2022-12-28] MEDS: FUROSEMIDE INJ 40 MG/4 ML VIAL IV PUSH ×2 (09:15→18:08)
[2022-12-28] MEDS: glipiZIDE 5 MG TABLET PO ×2 (09:15→18:08)
[2022-12-28] MEDS: OMEGA 3 POLYUNSAT FATTY ACIDS 1 GM CAP PO (09:15)
[2022-12-28] MEDS: ZINC SULFATE 220 MG CAPSULE PO (09:15)
[2022-12-28] MEDS: LOSARTAN POTASSIUM 100 MG TABLET PO (09:16)
[2022-12-28] MEDS: hydrALAZINE HCL 25 MG TABLET PO (09:16)
[2022-12-28] MEDS: CHOLECALCIFEROL 1,000 UNITS TABLET 2000 UNITS PO (09:16)
[2022-12-28] MEDS: GABAPENTIN 300 MG CAPSULE BY MOUTH ×3 (09:16→18:08)
[2022-12-28] MEDS: allopurinoL 300 MG TABLET PO (09:21)
[2022-12-28] MEDS: EUCERIN CREAM 120 GM JAR 1 APPLIC TOPICAL ×2 (09:21→18:07)
[2022-12-28] MEDS: REMDESIVIR 100 MG/NS 250 ML 100 MG/250 ML BAG 250 MG IVPB (09:22)
--- NOTE | 2022-12-28 09:51 | PM.PNCARD ---
Progress Note: A&P Assessment and Plan (1) Atrial fibrillation: Code(s): I48.91 - Unspecified atrial fibrillation Status: Chronic Assessment and Plan: Permanent AFib with rapid ventricular response here in the hospital while sick with respiratory failure and COVID. -- Continue Cardizem 30 mg q.6, can shift to long acting tomorrow a.m. -- Continue metoprolol 50mg b.i.d., this can also be shifted to long acting -- Heart rate is reasonably controlled. -- Warfarin on hold due to high INR. (2) Acute respiratory failure with hypoxia: Code(s): J96.01 - Acute respiratory failure with hypoxia Status: Acute Assessment and Plan: Has COVID and pneumonia, possibly some mild acute on chronic diastolic CHF due to tachycardia initially as Pro BNP was 4490 on admission. Prob a degree of chronic respiratory failure due to obesity / hypoventilation as well. --Hard to determine how much is due to acute on chronic diastolic CHF vs COVID --BUN is rising (2nd to rhabdo? steroids? diuretics?) --BNP 1670 this morning (improving) --Continue furosemide 40mg IV b.i.d today, perhaps shift back to p.o. 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 -- INR is supratherapeutic due to illness, antibiotics etc.. -- Last dose 12/25/2022 -- Continue daily INRs. (5) Lymphedema of both lower extremities: Code(s): I89.0 - Lymphedema, not elsewhere classified Status: Chronic Assessment and Plan: Chronic lymphedema, patient says no change. Uses a foot pump on his left lower extremity at home. -- interestingly not on any diuretic at home. (6) Rhabdomyolysis: Code(s): M62.82 - Rhabdomyolysis Status: Acute Assessment and Plan: Rhabdomyolysis, CPK was around 5000 on admission, -- improving. Subjective Date/time seen: 12/28/22 09:51 Cardiology follow up for atrial fibrillation Feels better this morning, states he had a rough day yesterday. Breathing is o.k. Coughing more frequently today. No chest pain or palpitations. Review of Systems Constitutional: Constitutional: Reports fatigue, Reports fever(s) ( Low-grade) and Reports weakness Eyes: Eyes: Reports no additional eye complaints ENT: Denies epistaxis, Reports nasal congestion and Reports nasal discharge Cardiovascular: Cardiovascular: Denies chest pain, Reports pedal edema ( no worse than usual, left greater than right, uses leg pumps at home), Denies lightheadedness, Reports dyspnea and Reports dyspnea on exertion Respiratory: Respiratory: Reports chest congestion, Reports cough ( mildly productive), Reports dyspnea, Reports dyspnea on exertion and Reports wheezing Gastrointestinal: Gastrointestinal: Denies abdominal pain and Denies hematochezia Genitourinary: Genitourinary: Reports no additional male genitourinary complaints Musculoskeletal: Musculoskeletal: Reports no additional musculoskeletal complaints Integumentary/Breasts: Skin/Breast: Reports system reviewed and no additional complaints, except as docu Neurologic: Reports system reviewed and no additional complaints, except as documented, Denies behavioral changes, Reports confusion ( possible some confusion, inconsistent historian) and Reports weakness Psychiatric: Psychiatric: Denies behavioral changes and Reports confusion ( possible some confusion, inconsistent historian) Endocrine: Endocrine: Reports fatigue Allergic/Immunologic: Allergic/Immunologic: Reports wheezing Exam Const: General: cooperative, comfortable and confusion ( possible some confusion, inconsistent historian) Orientation/consciousness: oriented to person, patient orien
[2022-12-28 12:29] LABS: Glucose Point of Care 206 mg/dl (65-105)
--- NOTE | 2022-12-28 14:01 | PM.IMPN ---
Progress Note: A&P Assessment and Plan (1) Acute respiratory failure with hypoxia: Code(s): J96.01 - Acute respiratory failure with hypoxia Status: Acute Assessment and Plan: Patient was on room air on admission. CXR on admission showing mild congestive changes. Patient developed worsening hypoxia. Etiology unclear but felt COVID and/or bacterial PNA and/or CHF. CXR 12/27 reviewed showing diffuse bilateral airspace disease. BCx negative. Sputum cx pending. Tolerating BiPAP. Wean BiPAP to sleep time. CXR today reviewed personally and shows left basilar consolidation and patchy findings elsewhere. Continue Lasix IV. Wean O2 as tolerated. (2) Sepsis: Code(s): A41.9 - Sepsis, unspecified organism Status: Acute Assessment and Plan: Present on admisison with tachycardia, fever and tachypnea. Still having fevers which could be from COVID. RSV and influenza negative. Consider also bacterial lung infection. Doubt fever related to UTI now that he is Day 5 of appropriate treatment with Rocephin. Azithromycin added (Day 4) and Vanco (Day 3). MRSA nasal swab negative so will stop Vanco. Stop Rocephin after 7 days and Azithro after 5 days. Wean O2 as tolerated. (3) COVID-19: Code(s): U07.1 - COVID-19 Status: Acute Assessment and Plan: Patient diagnosed with COVID on 12/22 after having several days of cold symptoms prior to admission. He initially was on room air. He has developed O2 requirement since admission. Solumedrol started but changed to Decadron and Remdesivir added. Wean O2 as tolerated. Daily INR (4) CHF (congestive heart failure): Code(s): I50.9 - Heart failure, unspecified Status: Acute Assessment and Plan: As above. BNP was 4500. Echocardiogram showed EF of 61% with indeterminate diastolic function. His right ventricular mildly enlarged and hypokinetic. Patient probably has acute diastolic CHF related to AFib/RVR and sepsis. Probably has underlying right sided failure as well. Repeat BNP has improved to 1670. Continue IV diuretics. (5) Pneumonia: Code(s): J18.9 - Pneumonia, unspecified organism Status: Acute Assessment and Plan: As above. (6) Atrial fibrillation: Code(s): I48.91 - Unspecified atrial fibrillation Status: Chronic Assessment and Plan: Patient with chronic AFib and is on Coumadin for anticoagulation and metoprolol 50mg TID for rate control. EKG on admission showing AFib with HR 103 and Rt BBB. HR has been mildly elevated since admission but worsened; IV metoprolol 5 mg with no improvement. He was given 20mg bolus and started on a Diltiazem drip and moved to the IMU. Transitioned to oral Diltiazem. HR better controlled. Monitor on tele. INR therapeutic today at 4.5 Continue daily INR. Continue to hold Coumadin (7) Urinary tract infection: Code(s): N39.0 - Urinary tract infection, site not specified Status: Acute Assessment and Plan: UA noted. Rocephin 1gm started on 12/22. Urine culture growing Proteus sensitive to Rocephin. Still with fevers so Rocephin increased to 2 g IV q 24 hrs on 12/25. Stop Rocephin after 7 days. (8) Rhabdomyolysis: Code(s): M62.82 - Rhabdomyolysis Status: Acute Assessment and Plan: TCK 5444 on admission. [place] rhabdomyolysis related to viral etiology from COVID. Not on a statin at home. UA showing 3+ blood but no RBCs. Repeat TCK trending down and now 434 today. Was on IV fluids but since have stopped. Renal function stable. Essentially resolved (9) Obstructive sleep apnea: Code(s): G47.33 - Obstructive sleep apnea (adult) (pediatric) Status: Chronic Assessment and Plan: Noncomplinat with PAP at home but tolerating here. Continue BiPAP and wean to night use and with naps. (10) Elevated LFTs: Code(s): R79.89 - Other specified abnormal findings of blood chemistry Status: Acute Assess
[2022-12-28 16:58] LABS: Glucose Point of Care 192 mg/dl (65-105)
[2022-12-28] MEDS: cefTRIAXone 2 GM/NS 100 ML 2 GM/100 ML BAG IVPB (18:06)
[2022-12-28] MEDS: AZITHROMYCIN 250 MG TABLET 500 MG PO (18:07)
[2022-12-29] VITALS (24 sets, daily range): BP systolic 116–140; BP diastolic 40–68; PULSE 76–101; RESP 18–24; TEMP 36.4–36.6; O2SAT 92–99; BMI 11.0
[2022-12-29] MEDS: dilTIAZem HCL 30 MG TABLET PO ×4 (00:50→17:24)
[2022-12-29] MEDS: CENTRAL LINE FLUSH 10 ML IV PUSH ×3 (05:40→21:17)
[2022-12-29] MEDS: METOPROLOL TARTRATE 50 MG TAB BY MOUTH ×3 (05:40→21:17)
[2022-12-29 06:10] LABS: Hematocrit 31.2 % (42.0-52.0); Mean Corpuscular HGB Conc 32.1 g/dl (32-36); Mean Corpuscular Hemoglobin 32.7 pg (26-34); Mean Platelet Volume 10.6 fl (7.4-10.4); Platelet Count Result 177 k/mm3 (150-375); Red Blood Count 3.06 M/mm3 (4.6-6.20); Red Cell Distribution Width 14.8 % (11.5-14.5); White Blood Count 12.1 K/mm3 (4.5-10.0)
[2022-12-29 06:19] LABS: INR 4.4; Prothrombin Time 40.6 Seconds (11.1-14.7)
[2022-12-29 06:42] LABS: Glucose Point of Care 190 mg/dl (65-105)
[2022-12-29 06:54] LABS: Band Neutrophils Percent 3 % (0-6); Lymphocytes Absolute Manual 1.33 K/mm3 (1.1-4.5); Lymphocytes Percent Manual 11 % (18-44); Monocytes Absolute Manual 0.72 K/mm3 (0.1-0.90); Monocytes Percent Manual 6 % (3-9); Neutrophils Absolute Manual 9.92 K/mm3 (1.3-6.7); Neutrophils Percent Manual 79 % (46-73); Total Cells Counted 100
[2022-12-29 06:55] LABS: Metamyelocytes Percent 1 %; Nucleated Red Blood Cells 4 %; Platelet Estimate Adequate (Adequate); Schistocytes None Seen (NORMAL); Smudge Cells PRESENT
[2022-12-29] MEDS: ALBUTEROL SULFATE NEB 2.5 MG/3 ML INH INHALATION ×4 (07:10→21:31)
[2022-12-29] MEDS: BUDESONIDE RESPULE NEB 0.5 MG/2 ML AMP INHALATION ×2 (07:10→21:31)
[2022-12-29 08:08] LABS: Glucose Point of Care 172 mg/dl (65-105)
[2022-12-29] MEDS: OMEGA 3 POLYUNSAT FATTY ACIDS 1 GM CAP PO (08:56)
[2022-12-29] MEDS: GABAPENTIN 300 MG CAPSULE BY MOUTH ×3 (08:56→17:25)
[2022-12-29] MEDS: CHOLECALCIFEROL 1,000 UNITS TABLET 2000 UNITS PO (08:56)
[2022-12-29] MEDS: ZINC SULFATE 220 MG CAPSULE PO (08:57)
[2022-12-29] MEDS: FUROSEMIDE INJ 40 MG/4 ML VIAL IV PUSH ×2 (08:58→17:25)
[2022-12-29] MEDS: allopurinoL 300 MG TABLET PO (08:58)
[2022-12-29] MEDS: hydrALAZINE HCL 25 MG TABLET PO (08:58)
[2022-12-29] MEDS: EUCERIN CREAM 120 GM JAR 1 APPLIC TOPICAL ×2 (08:58→17:23)
[2022-12-29] MEDS: LOSARTAN POTASSIUM 100 MG TABLET PO (08:58)
[2022-12-29] MEDS: glipiZIDE 5 MG TABLET PO ×2 (08:58→17:26)
[2022-12-29 09:48] LABS: Alanine Aminotransferase 61 U/L (6-50); Albumin Level 2.4 g/dL (3.5-5.1); Alkaline Phosphatase 49 U/L (38-126); Anion Gap 1 mmol/L (8-16); Aspartate Amino Transferase 68 U/L (17-59); Bilirubin,Total 1.1 mg/dL (0.2-1.3); Blood Urea Nitrogen 43 mg/dL (9-20); Calcium 7.3 mg/dL (8.4-10.2); Carbon Dioxide 35 mmol/L (22-30); Chloride 104 mmol/L (98-107); Estimated CRCL calculation 115 ml/min; Estimated Glomerular Filt Rate > 60; Glucose 241 mg/dL (65-110); Magnesium 2.2 mg/dL (1.6-2.3); Phosphorus 3.2 mg/dL (2.5-4.5); Potassium 4.2 mmol/L (3.4-5.0); Sodium 140 mmol/L (137-145)
[2022-12-29] MEDS: REMDESIVIR 100 MG/NS 250 ML 100 MG/250 ML BAG 250 MG IVPB (10:47)
--- NOTE | 2022-12-29 11:33 | PCNWS ---
Weekly nutritional screen. Patient is tolerating current heart healthy diet with adequate intake at 75-100%. No weight loss reported. No nutritional needs at this time.
[2022-12-29 12:52] LABS: Glucose Point of Care 216 mg/dl (65-105)
--- NOTE | 2022-12-29 12:59 | PM.IMPN ---
Progress Note: A&P Assessment and Plan (1) Acute respiratory failure with hypoxia: Code(s): J96.01 - Acute respiratory failure with hypoxia Status: Acute Assessment and Plan: Patient was on room air on admission. CXR on admission showing mild congestive changes. Patient developed worsening hypoxia. Etiology unclear but felt COVID and/or bacterial PNA and/or CHF. CXR 12/27 reviewed showing diffuse bilateral airspace disease. BCx negative. Sputum cx NGTD. Tolerating BiPAP. Wean BiPAP to sleep time. Repeat CXR 12/28 shows left basilar consolidation and patchy findings elsewhere. Continue Lasix IV. Continue abx to complete a course. Continue COVID treatment. Wean O2 as tolerated. (2) Sepsis: Code(s): A41.9 - Sepsis, unspecified organism Status: Acute Assessment and Plan: Present on admisison with tachycardia, fever and tachypnea. Fevers resolved. RSV and influenza negative. Consider also bacterial lung infection. Doubt fever related to UTI now that he is Day 5 of appropriate treatment. He completed Rocephin and Azithromycin. Vanco was added but MRSA nasal swab negative Vanco stopped. Wean O2 as tolerated. (3) COVID-19: Code(s): U07.1 - COVID-19 Status: Acute Assessment and Plan: Patient diagnosed with COVID on 12/22 after having several days of cold symptoms prior to admission. He initially was on room air. He has developed O2 requirement since admission. Solumedrol started but changed to Decadron and Remdesivir added. Wean O2 as tolerated. Daily INR (4) CHF (congestive heart failure): Code(s): I50.9 - Heart failure, unspecified Status: Acute Assessment and Plan: As above. BNP was 4500. Echocardiogram showed EF of 61% with indeterminate diastolic function. His right ventricular mildly enlarged and hypokinetic. Patient with acute diastolic CHF related to AFib/RVR and sepsis. Probably has underlying right sided failure as well. Repeat BNP has improved to 1670. Continue IV diuretics. (5) Pneumonia: Code(s): J18.9 - Pneumonia, unspecified organism Status: Acute Assessment and Plan: As above. (6) Atrial fibrillation: Code(s): I48.91 - Unspecified atrial fibrillation Status: Chronic Assessment and Plan: Patient with chronic AFib and is on Coumadin for anticoagulation and metoprolol 50mg TID for rate control. EKG on admission showing AFib with HR 103 and Rt BBB. HR worsened; IV metoprolol 5 mg with no improvement. He was given 20mg bolus and started on a Diltiazem drip and moved to the IMU. Now transitioned to oral Diltiazem. HR better controlled. Monitor on tele. INR remains supratherapeutic today at 4.4. Continue daily INR. Continue to hold Coumadin (7) Urinary tract infection: Code(s): N39.0 - Urinary tract infection, site not specified Status: Acute Assessment and Plan: UA noted. Rocephin 1gm started on 12/22. Urine culture growing Proteus sensitive to Rocephin. Still with fevers so Rocephin increased to 2 g IV q 24 hrs on 12/25. he completed a course of abx. (8) Rhabdomyolysis: Code(s): M62.82 - Rhabdomyolysis Status: Acute Assessment and Plan: TCK 5444 on admission. [place] rhabdomyolysis related to viral etiology from COVID. Not on a statin at home. UA showing 3+ blood but no RBCs. Repeat TCK trending down and now 434. Was on IV fluids but since have stopped. Renal function stable. Essentially resolved (9) Obstructive sleep apnea: Code(s): G47.33 - Obstructive sleep apnea (adult) (pediatric) Status: Chronic Assessment and Plan: Noncomplinat with PAP at home but tolerating here. Continue BiPAP and wean to night use and with naps. (10) Elevated LFTs: Code(s): R79.89 - Other specified abnormal findings of blood chemistry Status: Acute Assessment and Plan: Bili up to 2.0 and AST up to 194 but otherwise normal LFTs. [place] rel
[2022-12-29] MEDS: INSULIN ASPART (*BKC) 100 UNITS/ML SUB-Q ×2 (13:40→17:24)
[2022-12-29 17:24] LABS: Glucose Point of Care 212 mg/dl (65-105)
[2022-12-29] MEDS: AZITHROMYCIN 250 MG TABLET 500 MG PO (17:26)
[2022-12-29 20:26] LABS: Glucose Point of Care 281 mg/dl (65-105)
[2022-12-29] MEDS: INSULIN GLARGINE (*BKC) 100 UNITS/ML 6 UNITS SUB-Q (21:17)
[2022-12-30] VITALS (27 sets, daily range): BP systolic 117–152; BP diastolic 68–81; PULSE 79–102; RESP 18–22; TEMP 36.3–36.9; O2SAT 91–96
[2022-12-30] MEDS: dilTIAZem HCL 30 MG TABLET PO ×5 (00:10→23:53)
[2022-12-30 04:12] LABS: Legionella pneumophila Ag Ur Not Detected (Not Detected)
[2022-12-30] MEDS: METOPROLOL TARTRATE 50 MG TAB BY MOUTH ×3 (06:37→21:41)
[2022-12-30] MEDS: CENTRAL LINE FLUSH 10 ML IV PUSH ×3 (06:37→21:41)
[2022-12-30 07:18] LABS: Alanine Aminotransferase 65 U/L (6-50); Albumin Level 2.8 g/dL (3.5-5.1); Alkaline Phosphatase 45 U/L (38-126); Anion Gap 2 mmol/L (8-16); Aspartate Amino Transferase 76 U/L (17-59); Bilirubin,Total 1.4 mg/dL (0.2-1.3); Blood Urea Nitrogen 43 mg/dL (9-20); Calcium 7.3 mg/dL (8.4-10.2); Carbon Dioxide 33 mmol/L (22-30); Chloride 105 mmol/L (98-107); Estimated CRCL calculation 132 ml/min; Estimated Glomerular Filt Rate > 60; Glucose 174 mg/dL (65-110); Potassium 5.9 mmol/L (3.4-5.0); Sodium 140 mmol/L (137-145)
[2022-12-30 08:08] LABS: Glucose Point of Care 191 mg/dl (65-105)
[2022-12-30] MEDS: BUDESONIDE RESPULE NEB 0.5 MG/2 ML AMP INHALATION ×2 (08:09→19:49)
[2022-12-30] MEDS: ALBUTEROL SULFATE NEB 2.5 MG/3 ML INH INHALATION ×4 (08:09→19:48)
[2022-12-30] MEDS: CHOLECALCIFEROL 1,000 UNITS TABLET 2000 UNITS PO (08:27)
[2022-12-30] MEDS: OMEGA 3 POLYUNSAT FATTY ACIDS 1 GM CAP PO (08:27)
[2022-12-30] MEDS: FUROSEMIDE INJ 40 MG/4 ML VIAL IV PUSH ×2 (08:27→18:07)
[2022-12-30] MEDS: LOSARTAN POTASSIUM 100 MG TABLET PO (08:27)
[2022-12-30] MEDS: GABAPENTIN 300 MG CAPSULE BY MOUTH ×3 (08:28→18:07)
[2022-12-30] MEDS: EUCERIN CREAM 120 GM JAR 1 APPLIC TOPICAL ×2 (08:28→18:10)
[2022-12-30] MEDS: allopurinoL 300 MG TABLET PO (08:28)
[2022-12-30] MEDS: ZINC SULFATE 220 MG CAPSULE PO (08:28)
[2022-12-30] MEDS: hydrALAZINE HCL 25 MG TABLET PO (08:28)
[2022-12-30] MEDS: glipiZIDE 5 MG TABLET PO ×2 (08:28→18:07)
[2022-12-30 08:38] LABS: Hematocrit 32.2 % (42.0-52.0); Hemoglobin 10.2 g/dL (14.0-18.0); Mean Corpuscular HGB Conc 31.7 g/dl (32-36); Mean Corpuscular Hemoglobin 32.4 pg (26-34); Mean Corpuscular Volume 102.2 fl (80-100); Mean Platelet Volume 10.7 fl (7.4-10.4); Platelet Count Result 211 k/mm3 (150-375); Red Blood Count 3.15 M/mm3 (4.6-6.20); Red Cell Distribution Width 15.5 % (11.5-14.5)
[2022-12-30 08:57] LABS: INR 3.9; Prothrombin Time 37.2 Seconds (11.1-14.7)
[2022-12-30 09:01] LABS: Band Neutrophils Percent 1 % (0-6); Monocytes Absolute Manual 0.45 K/mm3 (0.1-0.90); Monocytes Percent Manual 3 % (3-9); Myelocytes Percent 1 %; Neutrophils Percent Manual 81 % (46-73); Nucleated Red Blood Cells 1 %; Platelet Estimate Adequate (Adequate); Total Cells Counted 100
[2022-12-30 09:02] LABS: Anisocytosis 1+ (NORMAL); Schistocytes None Seen (NORMAL)
[2022-12-30] MEDS: REMDESIVIR 100 MG/NS 250 ML 100 MG/250 ML BAG 250 MG IVPB (10:23)
--- NOTE | 2022-12-30 11:25 | PCOTNOTE ---
Patient refused treatment this session due to stating, he has not slept in 3 days, is exhausted and is not participating this session. I need to rest, I've also been having frequent incontinent bowel movements and not feeling well .
[2022-12-30 13:04] LABS: Glucose Point of Care 203 mg/dl (65-105)
--- NOTE | 2022-12-30 13:07 | PCOTNOTE ---
Patient refused treatment this session due to stating, not up for it today. I'll give you extra effort tomorrow, the plan is to get into a chair .
[2022-12-30] MEDS: INSULIN ASPART (*BKC) 100 UNITS/ML SUB-Q (13:25)
--- NOTE | 2022-12-30 14:00 | PM.IMPN ---
Progress Note: A&P Assessment and Plan (1) Acute respiratory failure with hypoxia: Code(s): J96.01 - Acute respiratory failure with hypoxia Status: Acute Assessment and Plan: Patient was on room air on admission. CXR on admission showing mild congestive changes. Patient developed worsening hypoxia. Etiology unclear but felt COVID and/or bacterial PNA and/or CHF. CXR 12/27 reviewed showing diffuse bilateral airspace disease. BCx negative. Sputum cx NGTD. Repeat CXR 12/28 shows left basilar consolidation and patchy findings elsewhere. Transition Lasix to oral tomorrow Completed 7 day course of rocephin 12/28 and 5 day course of azithromycin 12/29 Continue COVID treatment with dexamethasone and remdesivir Wean O2 as tolerated. Will need home O2 eval prior to discharge (2) Sepsis: Code(s): A41.9 - Sepsis, unspecified organism Status: Acute Assessment and Plan: Present on admisison with tachycardia, fever and tachypnea. Fevers resolved. RSV and influenza negative. Consider also bacterial lung infection. Doubt fever related to UTI. He completed Rocephin and Azithromycin. Vanco was added but MRSA nasal swab negative Vanco stopped. Wean O2 as tolerated. (3) COVID-19: Code(s): U07.1 - COVID-19 Status: Acute Assessment and Plan: Patient diagnosed with COVID on 12/22 after having several days of cold symptoms prior to admission. He initially was on room air. He has developed O2 requirement since admission. Solumedrol started but changed to Decadron and Remdesivir added. Wean O2 as tolerated. Daily INR Completed 5 day course of remdesivir 12/30 Decadron started 12/27, d/c 01/05 after 10 doses (4) CHF (congestive heart failure): Code(s): I50.9 - Heart failure, unspecified Status: Acute Assessment and Plan: As above. BNP was 4500. Echocardiogram showed EF of 61% with indeterminate diastolic function. His right ventricular mildly enlarged and hypokinetic. Patient with acute diastolic CHF related to AFib/RVR and sepsis. Probably has underlying right sided failure as well. Repeat BNP has improved to 1670. (5) Pneumonia: Code(s): J18.9 - Pneumonia, unspecified organism Status: Acute Assessment and Plan: Resolved, s/p abx course with rocephin + azithro (6) Atrial fibrillation: Code(s): I48.91 - Unspecified atrial fibrillation Status: Chronic Assessment and Plan: Patient with chronic AFib and is on Coumadin for anticoagulation and metoprolol 50mg TID for rate control. EKG on admission showing AFib with HR 103 and Rt BBB. HR worsened; IV metoprolol 5 mg with no improvement. He was given 20mg bolus and started on a Diltiazem drip and moved to the IMU. Now transitioned to oral Diltiazem. HR better controlled. Monitor on tele. INR remains supratherapeutic today at 3.9. Continue daily INR. Continue to hold Coumadin (7) Urinary tract infection: Code(s): N39.0 - Urinary tract infection, site not specified Status: Acute Assessment and Plan: UA noted. Rocephin 1gm started on 12/22. Urine culture growing Proteus sensitive to Rocephin. Still with fevers so Rocephin increased to 2 g IV q 24 hrs on 12/25. He completed a 7 day course of abx. (8) Rhabdomyolysis: Code(s): M62.82 - Rhabdomyolysis Status: Acute Assessment and Plan: TCK 5444 on admission. [place] rhabdomyolysis related to viral etiology from COVID. Not on a statin at home. UA showing 3+ blood but no RBCs. Repeat TCK trending down and now 434. Was on IV fluids but since have stopped. Renal function stable. Essentially resolved (9) Obstructive sleep apnea: Code(s): G47.33 - Obstructive sleep apnea (adult) (pediatric) Status: Chronic Assessment and Plan: Noncompliant with PAP at home but tolerating here. Continue BiPAP and wean to night use and with naps. (10) Elevated LFTs: Code(s): R79.89 - Oth
[2022-12-30 16:56] LABS: Glucose Point of Care 195 mg/dl (65-105)
[2022-12-30 18:40] LABS: Pneumococcal Antigen Urine Not Detected (Not Detected)
[2022-12-30 20:19] LABS: Glucose Point of Care 214 mg/dl (65-105)
[2022-12-30] MEDS: INSULIN GLARGINE (*BKC) 100 UNITS/ML 6 UNITS SUB-Q (21:41)
[2022-12-31] VITALS (27 sets, daily range): BP systolic 111–149; BP diastolic 44–77; PULSE 77–119; RESP 16–25; TEMP 36–37; O2SAT 92–99; BMI 11.0
[2022-12-31] MEDS: traZODone HCL 50 MG TABLET PO ×2 (01:55→21:24)
--- NOTE | 2022-12-31 07:48 | P.PNIM_ITS ---
Progress Note: A&P Assessment and Plan (1) Acute respiratory failure with hypoxia: Code(s): J96.01 - Acute respiratory failure with hypoxia Status: Acute Assessment and Plan: Patient was on room air on admission. CXR on admission showing mild congestive changes. Patient developed worsening hypoxia. Etiology unclear but felt COVID and/or bacterial PNA and/or CHF. CXR 12/27 reviewed showing diffuse bilateral airspace disease. BCx negative. Sputum cx NGTD. Repeat CXR 12/28 shows left basilar consolidation and patchy findings elsewhere. Transition Lasix to oral tomorrow Completed 7 day course of rocephin 12/28 and 5 day course of azithromycin 12/29 Continue COVID treatment with dexamethasone and remdesivir Wean O2 as tolerated. Will need home O2 eval prior to discharge (2) Sepsis: Code(s): A41.9 - Sepsis, unspecified organism Status: Acute Assessment and Plan: Present on admisison with tachycardia, fever and tachypnea. Fevers resolved. RSV and influenza negative. Consider also bacterial lung infection. Doubt fever related to UTI. He completed Rocephin and Azithromycin. Vanco was added but MRSA nasal swab negative Vanco stopped. Wean O2 as tolerated. (3) COVID-19: Code(s): U07.1 - COVID-19 Status: Acute Assessment and Plan: Patient diagnosed with COVID on 12/22 after having several days of cold symptoms prior to admission. He initially was on room air. He has developed O2 requirement since admission. Solumedrol started but changed to Decadron and Remdesivir added. Wean O2 as tolerated. Daily INR Completed 5 day course of remdesivir 12/30 Decadron started 12/27, d/c 01/05 after 10 doses (4) CHF (congestive heart failure): Code(s): I50.9 - Heart failure, unspecified Status: Acute Assessment and Plan: As above. BNP was 4500. Echocardiogram showed EF of 61% with indeterminate diastolic function. His right ventricular mildly enlarged and hypokinetic. Patient with acute diastolic CHF related to AFib/RVR and sepsis. Probably has underlying right sided failure as well. Repeat BNP has improved to 1670. (5) Pneumonia: Code(s): J18.9 - Pneumonia, unspecified organism Status: Acute Assessment and Plan: Resolved, s/p abx course with rocephin + azithro (6) Atrial fibrillation: Code(s): I48.91 - Unspecified atrial fibrillation Status: Chronic Assessment and Plan: Patient with chronic AFib and is on Coumadin for anticoagulation and metoprolol 50mg TID for rate control. EKG on admission showing AFib with HR 103 and Rt BBB. HR worsened; IV metoprolol 5 mg with no improvement. He was given 20mg bolus and started on a Diltiazem drip and moved to the IMU. Now transitioned to oral Diltiazem. HR better controlled. Monitor on tele. Continue daily INR. Continue to hold Coumadin (7) Urinary tract infection: Code(s): N39.0 - Urinary tract infection, site not specified Status: Acute Assessment and Plan: UA noted. Rocephin 1gm started on 12/22. Urine culture growing Proteus sensitive to Rocephin. Still with fevers so Rocephin increased to 2 g IV q 24 hrs on 12/25. He completed a 7 day course of abx. (8) Rhabdomyolysis: Code(s): M62.82 - Rhabdomyolysis Status: Acute Assessment and Plan: TCK 5444 on admission. [place] rhabdomyolysis related to viral etiology from COVID. Not on a statin at home. UA showing 3+ blood but no RBCs. Repeat TCK trending down and now 434. Was on IV fluids but since have stopped. Renal function stable. Essentially r
[2022-12-31] MEDS: ALBUTEROL SULFATE NEB 2.5 MG/3 ML INH INHALATION ×4 (07:52→21:10)
[2022-12-31] MEDS: BUDESONIDE RESPULE NEB 0.5 MG/2 ML AMP INHALATION ×2 (07:52→21:08)
[2022-12-31] MEDS: METOPROLOL TARTRATE 50 MG TAB BY MOUTH ×3 (08:12→21:23)
[2022-12-31] MEDS: dilTIAZem HCL 30 MG TABLET PO ×4 (08:13→23:53)
[2022-12-31] MEDS: CENTRAL LINE FLUSH 10 ML IV PUSH ×3 (08:13→21:25)
[2022-12-31 08:32] LABS: Hematocrit 32.2 % (42.0-52.0); Hemoglobin 10.1 g/dL (14.0-18.0); Mean Corpuscular HGB Conc 31.4 g/dl (32-36); Mean Corpuscular Hemoglobin 31.6 pg (26-34); Mean Corpuscular Volume 100.6 fl (80-100); Mean Platelet Volume 10.6 fl (7.4-10.4); Platelet Count Result 219 k/mm3 (150-375); Red Cell Distribution Width 16.5 % (11.5-14.5)
[2022-12-31 09:00] LABS: Glucose Point of Care 170 mg/dl (65-105)
--- NOTE | 2022-12-31 09:02 | PCRCNOTE ---
Home O2 eval will not need to be completed if the pt D/C to SNF. Pt states he is going to a rehab
[2022-12-31 09:05] LABS: Lymphocytes Absolute Manual 0.75 K/mm3 (1.1-4.5); Monocytes Absolute Manual 0.45 K/mm3 (0.1-0.90); Monocytes Percent Manual 3 % (3-9); Neutrophils Percent Manual 92 % (46-73); Platelet Estimate Adequate (Adequate); Total Cells Counted 100
[2022-12-31 09:06] LABS: Schistocytes None Seen (NORMAL)
[2022-12-31 10:20] LABS: Alanine Aminotransferase 65 U/L (6-50); Albumin Level 2.8 g/dL (3.5-5.1); Alkaline Phosphatase 48 U/L (38-126); Anion Gap 1 mmol/L (8-16); Aspartate Amino Transferase 67 U/L (17-59); Bilirubin,Total 1.6 mg/dL (0.2-1.3); Blood Urea Nitrogen 36 mg/dL (9-20); Calcium 7.8 mg/dL (8.4-10.2); Carbon Dioxide 34 mmol/L (22-30); Chloride 106 mmol/L (98-107); Estimated CRCL calculation 132 ml/min; Estimated Glomerular Filt Rate > 60; Glucose 181 mg/dL (65-110); Potassium 3.6 mmol/L (3.4-5.0); Sodium 141 mmol/L (137-145)
[2022-12-31] MEDS: OMEGA 3 POLYUNSAT FATTY ACIDS 1 GM CAP PO (11:11)
[2022-12-31] MEDS: hydrALAZINE HCL 25 MG TABLET PO (11:11)
[2022-12-31] MEDS: FUROSEMIDE INJ 40 MG/4 ML VIAL IV PUSH ×2 (11:11→17:45)
[2022-12-31] MEDS: LOSARTAN POTASSIUM 100 MG TABLET PO (11:11)
[2022-12-31] MEDS: GABAPENTIN 300 MG CAPSULE BY MOUTH ×3 (11:12→17:45)
[2022-12-31] MEDS: glipiZIDE 5 MG TABLET PO ×2 (11:12→17:44)
[2022-12-31] MEDS: allopurinoL 300 MG TABLET PO (11:12)
[2022-12-31] MEDS: ZINC SULFATE 220 MG CAPSULE PO (11:12)
[2022-12-31] MEDS: CHOLECALCIFEROL 1,000 UNITS TABLET 2000 UNITS PO (11:12)
[2022-12-31] MEDS: EUCERIN CREAM 120 GM JAR 1 APPLIC TOPICAL ×2 (11:22→17:45)
[2022-12-31 12:05] LABS: Glucose Point of Care 183 mg/dl (65-105)
[2022-12-31 17:15] LABS: Glucose Point of Care 240 mg/dl (65-105)
[2022-12-31] MEDS: INSULIN ASPART (*BKC) 100 UNITS/ML SUB-Q (17:45)
[2022-12-31 18:18] LABS: INR 3.1; Prothrombin Time 30.6 Seconds (11.1-14.7)
[2022-12-31 20:26] LABS: Glucose Point of Care 236 mg/dl (65-105)
[2022-12-31] MEDS: INSULIN GLARGINE (*BKC) 100 UNITS/ML 6 UNITS SUB-Q (21:24)
[2023-01-01] VITALS (20 sets, daily range): BP systolic 116–148; BP diastolic 63–72; PULSE 70–97; RESP 16–22; TEMP 36.3–36.8; O2SAT 92–100
[2023-01-01] MEDS: METOPROLOL TARTRATE 50 MG TAB BY MOUTH (05:54)
[2023-01-01] MEDS: CENTRAL LINE FLUSH 10 ML IV PUSH ×2 (05:54→15:09)
[2023-01-01] MEDS: dilTIAZem HCL 30 MG TABLET PO (05:54)
[2023-01-01 06:13] LABS: INR 2.5; Prothrombin Time 26.5 Seconds (11.1-14.7)
[2023-01-01] MEDS: BUDESONIDE RESPULE NEB 0.5 MG/2 ML AMP INHALATION ×2 (08:47→21:08)
[2023-01-01] MEDS: ALBUTEROL SULFATE NEB 2.5 MG/3 ML INH INHALATION ×4 (08:48→21:08)
--- NOTE | 2023-01-01 09:16 | PM.PNCARD ---
Progress Note: A&P Assessment and Plan (1) Atrial fibrillation: Code(s): I48.91 - Unspecified atrial fibrillation Status: Chronic Plan 77-year-old man with chronic atrial fibrillation current regimen of metoprolol and diltiazem is providing very good rate control. I will transition both of these agents to long-acting preparations today. Daily INR is being monitored/Coumadin currently on hold. Aleks Christopher MD [facility] Subjective Date/time seen: Date of service: 01/01/23 09:16 Interval history: Follow-up visit in this 77-year-old man with: Chronic atrial fibrillation being managed with rate control and anticoagulation. Had RVR on admission in the setting of fall/COVID/respiratory difficulty. Patient's beta-nadeem and diltiazem regimen now has provided very good rate control. He is asymptomatic of any cardiovascular complaints this morning. Exam Const: General: comfortable and no acute distress Other: Massively obese gentleman supine in bed watching television HENMT: Mouth: Yes moist mucous membranes Eyes: Sclera: sclerae normal Neck: Neck: supple Resp: Effort & Inspection: normal respiratory effort Auscultation: clear to auscultation bilaterally Cardio: Rhythm: abnormal rhythm irregularly irregular Other: PMI is not palpable no murmur no gallop GI: GI Palp: Yes Soft to palpation Auscultation: normal bowel sounds Skin: General skin exam: normal color Extrem: Other: Chronic lower extremity edema with changes of venous insufficiency Objective Data Vital Signs Vital Signs: Vital Signs - 24 hr 12/31/22 10:00 12/31/22 12:00 12/31/22 12:00 Temperature Pulse Rate 81 88 Respiratory Rate 18 Blood Pressure Pulse Oximetry 97 Oxygen Delivery Nasal Cannula Oxygen Flow Rate 4 Fraction of Inspired Oxygen 12/31/22 12:00 12/31/22 12:11 12/31/22 12:00 Temperature 36.0 C L Pulse Rate 83 95 82 Respiratory Rate 20 18 Blood Pressure 133/77 Pulse Oximetry 98 Oxygen Delivery Oxygen Flow Rate Fraction of Inspired Oxygen 12/31/22 14:04 12/31/22 14:00 12/31/22 15:43 Temperature Pulse Rate 94 83 86 Respiratory Rate 20 Blood Pressure Pulse Oximetry Oxygen Delivery Oxygen Flow Rate Fraction of Inspired Oxygen 12/31/22 15:53 12/31/22 16:00 12/31/22 16:00 Temperature 37.0 C Pulse Rate 79 87 Respiratory Rate 20 16 Blood Pressure 124/60 Pulse Oximetry 97 98 Oxygen Delivery Nasal Cannula Oxygen Flow Rate 4 Fraction of Inspired Oxygen 12/31/22 16:00 12/31/22 18:00 12/31/22 20:00 Temperature 36.4 C Pulse Rate 81 85 83 Respiratory Rate 22 H Blood Pressure 111/44 L Pulse Oximetry 97 Oxygen Delivery Oxygen Flow Rate Fraction of Inspired Oxygen 12/31/22 21:10 12/31/22 21:11 12/31/22 21:23 Temperature Pulse Rate 85 88 Respiratory Rate 20 Blood Pressure Pulse Oximetry 94 Oxygen Delivery High Flow Nasal Cannula Oxygen Flow Rate 4 Fraction of Inspired Oxygen 12/31/22 20:00 12/31/22 20:00 12/31/22 22:00 Temperature Pulse Rate 77 77 84 Respiratory Rate 20 Blood Pressure Pulse Oximetry 94 Oxygen Delivery High Flow Nasal Cannula Oxygen Flow Rate 4 Fraction of Inspired Oxygen 30 12/31/22 23:17 01/01/23 00:00 01/01/23 00:00 Temperature 36.4 C Pulse Rate 82 93 93 Respiratory Rate 22 H 22 H Blood Pressure 132/68 Pulse Oximetry 97 97 Oxygen Delivery High Flow Nasal Cannula Oxygen Flow Rate 4 Fraction of Inspired Oxygen 30 01/01/23 03:53 01/01/23 02:00 01/01/23 04:00 Temperature 36.4 C Pulse Rate 79 72 83 Respiratory Rate 20 Blood Pressure 148/69 H Pulse Oximetry 100 Oxygen Delivery Oxygen Flow Rate Fraction of Inspired Oxygen 01/01/23 04:00 12/31/22 21:25 01/01/23 05:54 Temperature Pulse Rate 83 88 88 Respiratory Rate 20 20 Blood Pressure Pulse Oximetry 100 Oxygen Delivery Hi
[2023-01-01] MEDS: hydrALAZINE HCL 25 MG TABLET PO (09:29)
[2023-01-01] MEDS: LOSARTAN POTASSIUM 100 MG TABLET PO (09:29)
[2023-01-01] MEDS: EUCERIN CREAM 120 GM JAR 1 APPLIC TOPICAL ×2 (09:29→16:58)
[2023-01-01] MEDS: OMEGA 3 POLYUNSAT FATTY ACIDS 1 GM CAP PO (09:29)
[2023-01-01] MEDS: ZINC SULFATE 220 MG CAPSULE PO (09:29)
[2023-01-01] MEDS: GABAPENTIN 300 MG CAPSULE BY MOUTH ×3 (09:30→16:58)
[2023-01-01] MEDS: allopurinoL 300 MG TABLET PO (09:30)
[2023-01-01] MEDS: glipiZIDE 5 MG TABLET PO ×2 (09:30→16:58)
[2023-01-01] MEDS: CHOLECALCIFEROL 1,000 UNITS TABLET 2000 UNITS PO (09:30)
[2023-01-01 09:55] LABS: Glucose Point of Care 177 mg/dl (65-105)
[2023-01-01] MEDS: dilTIAZem HCL CD 180 MG CAP.ER.24H PO (10:22)
[2023-01-01] MEDS: METOPROLOL SUCCINATE EXT REL 100 MG TABCR PO (10:22)
[2023-01-01] MEDS: FUROSEMIDE INJ 40 MG/4 ML VIAL IV PUSH (10:22)
--- NOTE | 2023-01-01 11:33 | PM.DS ---
DS: Admitting Diagnosis Discharge Date 01/01/2023 Admitting Diagnosis Shortness of breath DS: Discharge Diagnosis Discharge Diagnosis (1) Acute respiratory failure with hypoxia: Code(s): J96.01 - Acute respiratory failure with hypoxia Status: Acute Assessment and Plan: Patient was on room air on admission. CXR on admission showing mild congestive changes. Patient developed worsening hypoxia. Etiology unclear but felt COVID and/or bacterial PNA and/or CHF. CXR 12/27 reviewed showing diffuse bilateral airspace disease. BCx negative. Sputum cx NGTD. Repeat CXR 12/28 shows left basilar consolidation and patchy findings elsewhere. Transition Lasix to oral tomorrow Completed 7 day course of rocephin 12/28 and 5 day course of azithromycin 12/29 Continue COVID treatment with dexamethasone and remdesivir Wean O2 as tolerated. Will need home O2 eval prior to discharge (2) Sepsis: Code(s): A41.9 - Sepsis, unspecified organism Status: Acute Assessment and Plan: Present on admisison with tachycardia, fever and tachypnea. Fevers resolved. RSV and influenza negative. Consider also bacterial lung infection. Doubt fever related to UTI. He completed Rocephin and Azithromycin. Vanco was added but MRSA nasal swab negative Vanco stopped. Wean O2 as tolerated. (3) COVID-19: Code(s): U07.1 - COVID-19 Status: Acute Assessment and Plan: Patient diagnosed with COVID on 12/22 after having several days of cold symptoms prior to admission. He initially was on room air. He has developed O2 requirement since admission. Solumedrol started but changed to Decadron and Remdesivir added. Wean O2 as tolerated. Daily INR Completed 5 day course of remdesivir 12/30 Decadron started 12/27, d/c 01/05 after 10 doses (4) CHF (congestive heart failure): Code(s): I50.9 - Heart failure, unspecified Status: Acute Assessment and Plan: As above. BNP was 4500. Echocardiogram showed EF of 61% with indeterminate diastolic function. His right ventricular mildly enlarged and hypokinetic. Patient with acute diastolic CHF related to AFib/RVR and sepsis. Probably has underlying right sided failure as well. Repeat BNP has improved to 1670. (5) Pneumonia: Code(s): J18.9 - Pneumonia, unspecified organism Status: Acute Assessment and Plan: Resolved, s/p abx course with rocephin + azithro (6) Atrial fibrillation: Code(s): I48.91 - Unspecified atrial fibrillation Status: Chronic Assessment and Plan: Patient with chronic AFib and is on Coumadin for anticoagulation and metoprolol 50mg TID for rate control. EKG on admission showing AFib with HR 103 and Rt BBB. HR worsened; IV metoprolol 5 mg with no improvement. He was given 20mg bolus and started on a Diltiazem drip and moved to the IMU. Now transitioned to oral Diltiazem. HR better controlled. Monitor on tele. Continue daily INR. Continue to hold Coumadin (7) Urinary tract infection: Code(s): N39.0 - Urinary tract infection, site not specified Status: Acute Assessment and Plan: UA noted. Rocephin 1gm started on 12/22. Urine culture growing Proteus sensitive to Rocephin. Still with fevers so Rocephin increased to 2 g IV q 24 hrs on 12/25. He completed a 7 day course of abx. (8) Rhabdomyolysis: Code(s): M62.82 - Rhabdomyolysis Status: Acute Assessment and Plan: TCK 5444 on admission. [place] rhabdomyolysis related to viral etiology from COVID. Not on a statin at home. UA showing 3+ blood but no RBCs. Repeat TCK trending down and now 434. Was on IV fluids but since have stopped. Renal function stable. Essentially resolved (9) Obstructive sleep apnea: Code(s): G47.33 - Obstructive sleep apnea (adult) (pediatric) Status: Chronic Assessment and Plan: Noncompliant with PAP at home but tolerating here. Continue BiPAP and wean to night use and with nap
[2023-01-01 11:40] LABS: Hematocrit 31.9 % (42.0-52.0); Hemoglobin 9.9 g/dL (14.0-18.0); Mean Corpuscular Hemoglobin 32.1 pg (26-34); Mean Corpuscular Volume 103.6 fl (80-100); Mean Platelet Volume 10.8 fl (7.4-10.4); Platelet Count Result 174 k/mm3 (150-375); Red Blood Count 3.08 M/mm3 (4.6-6.20); Red Cell Distribution Width 16.8 % (11.5-14.5); White Blood Count 14.4 K/mm3 (4.5-10.0)
[2023-01-01 11:52] LABS: Glucose Point of Care 157 mg/dl (65-105)
[2023-01-01 11:55] LABS: Band Neutrophils Percent 2 % (0-6); Lymphocytes Absolute Manual 0.57 K/mm3 (1.1-4.5); Lymphocytes Percent Manual 4 % (18-44); Monocytes Absolute Manual 0.43 K/mm3 (0.1-0.90); Monocytes Percent Manual 3 % (3-9); Myelocytes Percent 1 %; Neutrophils Absolute Manual 13.24 K/mm3 (1.3-6.7); Neutrophils Percent Manual 90 % (46-73); Total Cells Counted 100
[2023-01-01 11:56] LABS: Anisocytosis 1+ (NORMAL); Macrocytosis 1+ (NORMAL); Platelet Estimate Adequate (Adequate); Schistocytes None Seen (NORMAL)
[2023-01-01 13:11] LABS: Alanine Aminotransferase 60 U/L (6-50); Albumin Level 2.7 g/dL (3.5-5.1); Alkaline Phosphatase 47 U/L (38-126); Anion Gap 4 mmol/L (8-16); Aspartate Amino Transferase 57 U/L (17-59); Bilirubin,Total 1.8 mg/dL (0.2-1.3); Blood Urea Nitrogen 41 mg/dL (9-20); Carbon Dioxide 36 mmol/L (22-30); Chloride 102 mmol/L (98-107); Estimated CRCL calculation 132 ml/min; Estimated Glomerular Filt Rate > 60; Glucose 173 mg/dL (65-110); Potassium 4.5 mmol/L (3.4-5.0); Sodium 142 mmol/L (137-145)
--- NOTE | 2023-01-01 13:32 | PM.IMPN ---
Progress Note: A&P Assessment and Plan (1) Acute respiratory failure with hypoxia: Code(s): J96.01 - Acute respiratory failure with hypoxia Status: Acute Assessment and Plan: Patient was on room air on admission. CXR on admission showing mild congestive changes. Patient developed worsening hypoxia. Etiology unclear but felt COVID and/or bacterial PNA and/or CHF. CXR 12/27 reviewed showing diffuse bilateral airspace disease. BCx negative. Sputum cx NGTD. Repeat CXR 12/28 shows left basilar consolidation and patchy findings elsewhere. Transition Lasix to oral tomorrow Completed 7 day course of rocephin 12/28 and 5 day course of azithromycin 12/29 Continue COVID treatment with dexamethasone and remdesivir Wean O2 as tolerated. Will need home O2 eval prior to discharge, likely going to rehab on Wednesday (2) Sepsis: Code(s): A41.9 - Sepsis, unspecified organism Status: Acute Assessment and Plan: Present on admisison with tachycardia, fever and tachypnea. Fevers resolved. RSV and influenza negative. Consider also bacterial lung infection. Doubt fever related to UTI. He completed Rocephin and Azithromycin. Vanco was added but MRSA nasal swab negative Vanco stopped. Wean O2 as tolerated. (3) COVID-19: Code(s): U07.1 - COVID-19 Status: Acute Assessment and Plan: Patient diagnosed with COVID on 12/22 after having several days of cold symptoms prior to admission. He initially was on room air. He has developed O2 requirement since admission. Solumedrol started but changed to Decadron and Remdesivir added. Wean O2 as tolerated. Daily INR Completed 5 day course of remdesivir 12/30 Decadron started 12/27, d/c 01/05 after 10 doses (4) CHF (congestive heart failure): Code(s): I50.9 - Heart failure, unspecified Status: Acute Assessment and Plan: As above. BNP was 4500. Echocardiogram showed EF of 61% with indeterminate diastolic function. His right ventricular mildly enlarged and hypokinetic. Patient with acute diastolic CHF related to AFib/RVR and sepsis. Probably has underlying right sided failure as well. Repeat BNP has improved to 1670. Essentially euvolemic today (5) Pneumonia: Code(s): J18.9 - Pneumonia, unspecified organism Status: Acute Assessment and Plan: Resolved, s/p abx course with rocephin + azithro (6) Atrial fibrillation: Code(s): I48.91 - Unspecified atrial fibrillation Status: Chronic Assessment and Plan: Patient with chronic AFib and is on Coumadin for anticoagulation and metoprolol 50mg TID for rate control. EKG on admission showing AFib with HR 103 and Rt BBB. HR worsened; IV metoprolol 5 mg with no improvement. He was given 20mg bolus and started on a Diltiazem drip and moved to the IMU. Now transitioned to oral Diltiazem. HR better controlled. Monitor on tele. INR down to 2.5, restart Coumadin 01/01, monitor (7) Urinary tract infection: Code(s): N39.0 - Urinary tract infection, site not specified Status: Acute Assessment and Plan: UA noted. Rocephin 1gm started on 12/22. Urine culture growing Proteus sensitive to Rocephin. Still with fevers so Rocephin increased to 2 g IV q 24 hrs on 12/25. He completed a 7 day course of abx. (8) Rhabdomyolysis: Code(s): M62.82 - Rhabdomyolysis Status: Acute Assessment and Plan: TCK 5444 on admission. [place] rhabdomyolysis related to viral etiology from COVID. Not on a statin at home. UA showing 3+ blood but no RBCs. Repeat TCK trending down and now 434. Was on IV fluids but since have stopped. Renal function stable. Essentially resolved (9) Obstructive sleep apnea: Code(s): G47.33 - Obstructive sleep apnea (adult) (pediatric) Status: Chronic Assessment and Plan: Noncompliant with PAP at home but tolerating here. Continue BiPAP and wean to night use and with naps. (10) Elevated LFTs:
[2023-01-01] MEDS: traMADol HCL (*CRX) 50 MG TABLET PO (16:07)
--- NOTE | 2023-01-01 16:29 | PC.NURSE ---
This patient, Kirill Cardoso, was received from imu on 01/01/23 at 1629. Patient/family oriented to unit policies and routines
[2023-01-01] MEDS: WARFARIN (*PBKC) 3 MG TABLET 6 MG PO (16:59)
[2023-01-01 17:05] LABS: Glucose Point of Care 154 mg/dl (65-105)
[2023-01-01 17:26] LABS: Glucose Point of Care 156 mg/dl (65-105)
[2023-01-01] MEDS: traZODone HCL 50 MG TABLET PO (20:50)
[2023-01-01] MEDS: INSULIN GLARGINE (*BKC) 100 UNITS/ML 6 UNITS SUB-Q (20:53)
[2023-01-01 20:58] LABS: Glucose Point of Care 216 mg/dl (65-105)
[2023-01-02] VITALS (13 sets, daily range): BP systolic 114–149; BP diastolic 42–73; PULSE 76–90; RESP 16–18; TEMP 36.8–37.1; O2SAT 91–100; BMI 11.0
[2023-01-02] MEDS: traMADol HCL (*CRX) 50 MG TABLET PO ×3 (06:24→12:52)
[2023-01-02] MEDS: CENTRAL LINE FLUSH 10 ML IV PUSH ×3 (06:26→20:23)
--- NOTE | 2023-01-02 09:00 | PM.IMPN ---
Progress Note: A&P Assessment and Plan (1) Acute respiratory failure with hypoxia: Code(s): J96.01 - Acute respiratory failure with hypoxia Status: Acute Assessment and Plan: Patient was on room air on admission. CXR on admission showing mild congestive changes. Patient developed worsening hypoxia. Etiology unclear but felt COVID and/or bacterial PNA and/or CHF, blood and sputum cs negative Completed 7 day course of rocephin 12/28 and 5 day course of azithromycin 12/29 Continue COVID treatment, see below Will need home O2 eval prior to discharge, likely going to rehab on Wednesday (2) Sepsis: Code(s): A41.9 - Sepsis, unspecified organism Status: Acute Assessment and Plan: Present on admisison with tachycardia, fever and tachypnea. Fevers resolved. RSV and influenza negative. Consider also bacterial lung infection. Doubt fever related to UTI. He completed Rocephin and Azithromycin. Vanco was added but MRSA nasal swab negative (3) COVID-19: Code(s): U07.1 - COVID-19 Status: Acute Assessment and Plan: Patient diagnosed with COVID on 12/22 after having several days of cold symptoms prior to admission. He initially was on room air. He has developed O2 requirement since admission. Solumedrol started but changed to Decadron and Remdesivir added. Wean O2 as tolerated. Completed 5 day course of remdesivir 12/30 Decadron started 12/27, d/c 01/05 after 10 doses (4) CHF (congestive heart failure): Code(s): I50.9 - Heart failure, unspecified Status: Acute Assessment and Plan: As above. BNP was 4500. Echocardiogram showed EF of 61% with indeterminate diastolic function. His right ventricular mildly enlarged and hypokinetic. Patient with acute diastolic CHF related to AFib/RVR and sepsis. Probably has underlying right sided failure as well. Repeat BNP improved to 1670. Essentially euvolemic at this time, monitor, IV lasix d/c, no oral diuresis cont at this time Will initiate Lasix 20 mg p.o. daily at discharge, 1st dose tomorrow 01/03 (5) Pneumonia: Code(s): J18.9 - Pneumonia, unspecified organism Status: Acute Assessment and Plan: Resolved, s/p abx course with rocephin + azithro (6) Atrial fibrillation: Code(s): I48.91 - Unspecified atrial fibrillation Status: Chronic Assessment and Plan: Patient with chronic AFib and is on Coumadin for anticoagulation and metoprolol 50mg TID for rate control. EKG on admission showing AFib with HR 103 and Rt BBB. HR worsened; IV metoprolol 5 mg with no improvement. He was given 20mg bolus and started on a Diltiazem drip and moved to the IMU. Now transitioned to oral Diltiazem. HR better controlled. Monitor on tele. INR down to 2.4 today restarted Coumadin home dose 01/01, monitor (7) Urinary tract infection: Code(s): N39.0 - Urinary tract infection, site not specified Status: Acute Assessment and Plan: UA noted. Rocephin 1gm started on 12/22. Urine culture growing Proteus sensitive to Rocephin. Still with fevers so Rocephin increased to 2 g IV q 24 hrs on 12/25. He completed a 7 day course of abx. (8) Rhabdomyolysis: Code(s): M62.82 - Rhabdomyolysis Status: Acute Assessment and Plan: TCK 5444 on admission. [place] rhabdomyolysis related to viral etiology from COVID. Not on a statin at home. UA showing 3+ blood but no RBCs. Repeat TCK trending down and now 434. Was on IV fluids but since have stopped. Renal function stable. Essentially resolved (9) Obstructive sleep apnea: Code(s): G47.33 - Obstructive sleep apnea (adult) (pediatric) Status: Chronic Assessment and Plan: Noncompliant with PAP at home but tolerating here. Continue BiPAP and wean to night use and with naps. (10) Elevated LFTs: Code(s): R79.89 - Other specified abnormal findings of blood chemistry Status: Acute Assessment and Plan:
[2023-01-02] MEDS: allopurinoL 300 MG TABLET PO (09:05)
[2023-01-02] MEDS: CHOLECALCIFEROL 1,000 UNITS TABLET 2000 UNITS PO (09:05)
[2023-01-02] MEDS: GABAPENTIN 300 MG CAPSULE BY MOUTH ×3 (09:06→18:05)
[2023-01-02] MEDS: LOSARTAN POTASSIUM 100 MG TABLET PO (09:06)
[2023-01-02] MEDS: hydrALAZINE HCL 25 MG TABLET PO (09:06)
[2023-01-02] MEDS: EUCERIN CREAM 120 GM JAR 1 APPLIC TOPICAL ×2 (09:06→18:05)
[2023-01-02] MEDS: glipiZIDE 5 MG TABLET PO ×2 (09:06→18:04)
[2023-01-02] MEDS: METOPROLOL SUCCINATE EXT REL 100 MG TABCR PO (09:06)
[2023-01-02] MEDS: dilTIAZem HCL CD 180 MG CAP.ER.24H PO (09:06)
[2023-01-02] MEDS: ZINC SULFATE 220 MG CAPSULE PO (09:06)
[2023-01-02] MEDS: OMEGA 3 POLYUNSAT FATTY ACIDS 1 GM CAP PO (09:06)
[2023-01-02] MEDS: ACETAMINOPHEN 325 MG TABLET 650 MG PO (09:07)
[2023-01-02 09:26] LABS: Hematocrit 31.7 % (42.0-52.0); Hemoglobin 9.7 g/dL (14.0-18.0); Mean Corpuscular HGB Conc 30.6 g/dl (32-36); Mean Corpuscular Hemoglobin 31.9 pg (26-34); Mean Corpuscular Volume 104.3 fl (80-100); Mean Platelet Volume 10.5 fl (7.4-10.4); Platelet Count Result 179 k/mm3 (150-375); Red Blood Count 3.04 M/mm3 (4.6-6.20); Red Cell Distribution Width 17.3 % (11.5-14.5); White Blood Count 15.4 K/mm3 (4.5-10.0)
[2023-01-02 09:31] LABS: Glucose Point of Care 176 mg/dl (65-105)
[2023-01-02] MEDS: BUDESONIDE RESPULE NEB 0.5 MG/2 ML AMP INHALATION ×2 (09:32→20:16)
[2023-01-02] MEDS: ALBUTEROL SULFATE NEB 2.5 MG/3 ML INH INHALATION ×3 (09:32→20:16)
[2023-01-02 10:11] LABS: Band Neutrophils Percent 6 % (0-6); Metamyelocytes Percent 3 %; Monocytes Absolute Manual 0.77 K/mm3 (0.1-0.90); Monocytes Percent Manual 5 % (3-9); Neutrophils Absolute Manual 14.16 K/mm3 (1.3-6.7); Neutrophils Percent Manual 86 % (46-73); Nucleated Red Blood Cells 1 %; Platelet Estimate Adequate (Adequate); Total Cells Counted 100
[2023-01-02 10:12] LABS: Schistocytes None Seen (NORMAL)
[2023-01-02 10:13] LABS: Hypochromasia 1+ (NORMAL)
[2023-01-02 10:14] LABS: Anisocytosis 1+ (NORMAL); Basophilic Stippling 1+ (NORMAL)
[2023-01-02 12:13] LABS: Glucose Point of Care 186 mg/dl (65-105)
[2023-01-02 12:14] LABS: Alanine Aminotransferase 47 U/L (6-50); Albumin Level 2.6 g/dL (3.5-5.1); Alkaline Phosphatase 45 U/L (38-126); Anion Gap 4 mmol/L (8-16); Aspartate Amino Transferase 42 U/L (17-59); Bilirubin,Total 1.5 mg/dL (0.2-1.3); Blood Urea Nitrogen 38 mg/dL (9-20); Calcium 7.7 mg/dL (8.4-10.2); Carbon Dioxide 34 mmol/L (22-30); Chloride 102 mmol/L (98-107); Estimated CRCL calculation 112 ml/min; Estimated Glomerular Filt Rate > 60; Glucose 221 mg/dL (65-110); Potassium 3.7 mmol/L (3.4-5.0); Sodium 140 mmol/L (137-145)
[2023-01-02] MEDS: TOLNAFTATE 1% POWDER 45 GM BTL 1 APPLIC TOPICAL (13:15)
[2023-01-02 15:12] LABS: INR 2.4
[2023-01-02 17:03] LABS: Glucose Point of Care 179 mg/dl (65-105)
[2023-01-02] MEDS: WARFARIN (*PBKC) 4 MG TABLET 8 MG PO (18:04)
[2023-01-02] MEDS: ACETAMINOPHEN 500 MG TABLET 1000 MG PO (18:05)
[2023-01-02] MEDS: SILVERGEL (ELTA) 45 ML 1 APPLIC TOPICAL (18:06)
[2023-01-02] MEDS: INSULIN GLARGINE (*BKC) 100 UNITS/ML 6 UNITS SUB-Q (20:23)
[2023-01-02 21:43] LABS: Glucose Point of Care 244 mg/dl (65-105)
[2023-01-03] VITALS (17 sets, daily range): BP systolic 122–145; BP diastolic 46–74; PULSE 72–96; RESP 16–20; TEMP 36.4–37.1; O2SAT 95–98
[2023-01-03] MEDS: ACETAMINOPHEN 500 MG TABLET 1000 MG PO ×3 (00:15→17:08)
[2023-01-03 04:54] LABS: Basophils Absolute Auto 0.1 K/mm3 (0.0-0.1); Basophils Percent Auto 0.6 % (0.2-1.2); Eosinophils Percent Auto 0.1 % (0-4.4); Hematocrit 32.7 % (42.0-52.0); Hemoglobin 10.2 g/dL (14.0-18.0); Immature Granulocyte Percent A 8.1 % (0-0.5); Lymphocytes Percent Auto 4.4 % (18.3-44.2); Mean Corpuscular HGB Conc 31.2 g/dl (32-36); Mean Corpuscular Hemoglobin 32.8 pg (26-34); Mean Corpuscular Volume 105.1 fl (80-100); Mean Platelet Volume 10.5 fl (7.4-10.4); Monocytes Absolute Auto 0.5 K/mm3 (0.1-0.6); Monocytes Percent Auto 3.5 % (2.6-8.5); Neutrophils Absolute Auto 11.3 K/mm3 (1.3-6.7); Neutrophils Percent Auto 83.3 % (45.5-73.1); Nucleated Red Blood Cells Absolute Auto 0.1 K/mm3 (0.0-0.012); Nucleated Red Blood Cells Perc 0.5 % (0.0-0.2); Platelet Count Result 160 k/mm3 (150-375); Red Blood Count 3.11 M/mm3 (4.6-6.20); Red Cell Distribution Width 18.3 % (11.5-14.5); White Blood Count 13.5 K/mm3 (4.5-10.0)
[2023-01-03 05:09] LABS: INR 2.5; Prothrombin Time 26.3 Seconds (11.1-14.7)
[2023-01-03 05:23] LABS: Alanine Aminotransferase 49 U/L (6-50); Albumin Level 2.7 g/dL (3.5-5.1); Alkaline Phosphatase 36 U/L (38-126); Anion Gap -2 mmol/L (8-16); Aspartate Amino Transferase 50 U/L (17-59); Bilirubin,Total 1.5 mg/dL (0.2-1.3); Blood Urea Nitrogen 40 mg/dL (9-20); Calcium 7.7 mg/dL (8.4-10.2); Carbon Dioxide 36 mmol/L (22-30); Chloride 104 mmol/L (98-107); Estimated CRCL calculation 146 ml/min; Estimated Glomerular Filt Rate > 60; Glucose 148 mg/dL (65-110); Potassium 5.5 mmol/L (3.4-5.0); Sodium 138 mmol/L (137-145)
[2023-01-03] MEDS: CENTRAL LINE FLUSH 10 ML IV PUSH ×3 (05:39→20:20)
[2023-01-03] MEDS: CENTRAL LINE FLUSH 20 ML IV PUSH (05:40)
[2023-01-03 08:27] LABS: Glucose Point of Care 184 mg/dl (65-105)
[2023-01-03] MEDS: BUDESONIDE RESPULE NEB 0.5 MG/2 ML AMP INHALATION ×2 (08:33→20:36)
[2023-01-03] MEDS: ALBUTEROL SULFATE NEB 2.5 MG/3 ML INH INHALATION ×4 (08:33→20:36)
[2023-01-03] MEDS: GABAPENTIN 300 MG CAPSULE BY MOUTH ×3 (09:04→17:08)
[2023-01-03] MEDS: CHOLECALCIFEROL 1,000 UNITS TABLET 2000 UNITS PO (09:04)
[2023-01-03] MEDS: glipiZIDE 5 MG TABLET PO ×2 (09:05→17:08)
[2023-01-03] MEDS: ZINC SULFATE 220 MG CAPSULE PO (09:05)
[2023-01-03] MEDS: FUROSEMIDE 20 MG TABLET PO (09:05)
[2023-01-03] MEDS: LOSARTAN POTASSIUM 100 MG TABLET PO (09:05)
[2023-01-03] MEDS: hydrALAZINE HCL 25 MG TABLET PO (09:05)
[2023-01-03] MEDS: allopurinoL 300 MG TABLET PO (09:05)
[2023-01-03] MEDS: EUCERIN CREAM 120 GM JAR 1 APPLIC TOPICAL ×2 (09:06→17:08)
[2023-01-03] MEDS: OMEGA 3 POLYUNSAT FATTY ACIDS 1 GM CAP PO (09:06)
[2023-01-03] MEDS: METOPROLOL SUCCINATE EXT REL 100 MG TABCR PO (09:06)
[2023-01-03] MEDS: traZODone HCL 50 MG TABLET PO (09:07)
[2023-01-03] MEDS: dilTIAZem HCL CD 180 MG CAP.ER.24H PO (09:07)
--- NOTE | 2023-01-03 10:52 | PM.IMPN ---
Progress Note: A&P Assessment and Plan (1) Acute respiratory failure with hypoxia: Code(s): J96.01 - Acute respiratory failure with hypoxia Status: Acute Assessment and Plan: Patient was on room air on admission. CXR on admission showing mild congestive changes. Patient developed worsening hypoxia. Etiology unclear but felt COVID and/or bacterial PNA and/or CHF, blood and sputum cs negative Completed 7 day course of rocephin 12/28 and 5 day course of azithromycin 12/29 Continue COVID treatment, see below Will need home O2 eval prior to discharge, likely going to rehab on Wednesday (2) Sepsis: Code(s): A41.9 - Sepsis, unspecified organism Status: Acute Assessment and Plan: Present on admisison with tachycardia, fever and tachypnea. Fevers resolved. RSV and influenza negative. Consider also bacterial lung infection. Doubt fever related to UTI. He completed Rocephin and Azithromycin. Vanco was added but MRSA nasal swab negative. Urine culture 12/22 positive for proteus, sens to rocephin. (3) COVID-19: Code(s): U07.1 - COVID-19 Status: Acute Assessment and Plan: Patient diagnosed with COVID on 12/22 after having several days of cold symptoms prior to admission. He initially was on room air. He has developed O2 requirement since admission. Solumedrol started but changed to Decadron and Remdesivir added. Wean O2 as tolerated. Completed 5 day course of remdesivir 12/30 Decadron started 12/27, d/c 01/05 after 10 doses (4) CHF (congestive heart failure): Code(s): I50.9 - Heart failure, unspecified Status: Acute Assessment and Plan: As above. BNP was 4500. Echocardiogram showed EF of 61% with indeterminate diastolic function. His right ventricular mildly enlarged and hypokinetic. Patient with acute diastolic CHF related to AFib/RVR and sepsis. Probably has underlying right sided failure as well. Repeat BNP improved to 1670. Essentially euvolemic at this time, monitor, IV lasix d/c, no oral diuresis cont at this time Will initiate Lasix 20 mg p.o. daily at discharge, 1st dose 3/26 AM (5) Pneumonia: Code(s): J18.9 - Pneumonia, unspecified organism Status: Acute Assessment and Plan: Resolved, s/p abx course with rocephin + azithro (6) Atrial fibrillation: Code(s): I48.91 - Unspecified atrial fibrillation Status: Chronic Assessment and Plan: Patient with chronic AFib and is on Coumadin for anticoagulation and metoprolol 50mg TID for rate control. EKG on admission showing AFib with HR 103 and Rt BBB. HR worsened; IV metoprolol 5 mg with no improvement. He was given 20mg bolus and started on a Diltiazem drip and moved to the IMU. Now transitioned to oral Diltiazem. HR better controlled. Monitor on tele. INR 2.5 today 01/03 Restarted Coumadin home dose 01/01, continue (7) Urinary tract infection: Code(s): N39.0 - Urinary tract infection, site not specified Status: Acute Assessment and Plan: UA noted. Rocephin 1gm started on 12/22. Urine culture growing Proteus sensitive to Rocephin. Still with fevers so Rocephin increased to 2 g IV q 24 hrs on 12/25. He completed a 7 day course of abx. (8) Rhabdomyolysis: Code(s): M62.82 - Rhabdomyolysis Status: Acute Assessment and Plan: TCK 5444 on admission. [place] rhabdomyolysis related to viral etiology from COVID. Not on a statin at home. UA showing 3+ blood but no RBCs. Repeat TCK trending down and now 434. Was on IV fluids but since have stopped. Renal function stable. Essentially resolved (9) Obstructive sleep apnea: Code(s): G47.33 - Obstructive sleep apnea (adult) (pediatric) Status: Chronic Assessment and Plan: Continue BiPAP and wean to night use and with naps. (10) Elevated LFTs: Code(s): R79.89 - Other specified abnormal findings of blood chemistry Status: Acute Assessment and Plan:
[2023-01-03 11:44] LABS: Glucose Point of Care 234 mg/dl (65-105)
[2023-01-03] MEDS: INSULIN ASPART (*BKC) 100 UNITS/ML SUB-Q ×2 (12:31→17:05)
[2023-01-03 16:42] LABS: Glucose Point of Care 233 mg/dl (65-105)
[2023-01-03] MEDS: WARFARIN (*PBKC) 4 MG TABLET 8 MG PO (17:06)
[2023-01-03] MEDS: INSULIN GLARGINE (*BKC) 100 UNITS/ML 6 UNITS SUB-Q (20:20)
[2023-01-03 20:31] LABS: Glucose Point of Care 263 mg/dl (65-105)
[2023-01-04] VITALS (17 sets, daily range): BP systolic 100–152; BP diastolic 45–80; PULSE 79–98; RESP 14–22; TEMP 36.4–36.8; O2SAT 93–100; BMI 11.0
[2023-01-04] MEDS: CENTRAL LINE FLUSH 10 ML IV PUSH (04:51)
[2023-01-04] MEDS: CENTRAL LINE FLUSH 20 ML IV PUSH (04:51)
[2023-01-04 05:01] LABS: Basophils Absolute Auto 0.1 K/mm3 (0.0-0.1); Basophils Percent Auto 0.4 % (0.2-1.2); Hematocrit 32.2 % (42.0-52.0); Immature Granulocyte Absolute 0.78 K/mm3 (0.00-0.031); Immature Granulocyte Percent A 5.8 % (0-0.5); Lymphocytes Absolute Auto 0.61 K/mm3 (0.9-3.2); Lymphocytes Percent Auto 4.5 % (18.3-44.2); Mean Corpuscular HGB Conc 31.1 g/dl (32-36); Mean Corpuscular Hemoglobin 33.2 pg (26-34); Mean Platelet Volume 10.4 fl (7.4-10.4); Monocytes Absolute Auto 0.5 K/mm3 (0.1-0.6); Monocytes Percent Auto 3.9 % (2.6-8.5); Neutrophils Absolute Auto 11.5 K/mm3 (1.3-6.7); Neutrophils Percent Auto 85.4 % (45.5-73.1); Nucleated Red Blood Cells Absolute Auto 0.1 K/mm3 (0.0-0.012); Nucleated Red Blood Cells Perc 0.4 % (0.0-0.2); Platelet Count Result 147 k/mm3 (150-375); Red Blood Count 3.01 M/mm3 (4.6-6.20); Red Cell Distribution Width 18.6 % (11.5-14.5); White Blood Count 13.5 K/mm3 (4.5-10.0)
[2023-01-04 05:10] LABS: INR 3.7; Prothrombin Time 35.6 Seconds (11.1-14.7)
[2023-01-04 05:11] LABS: Alanine Aminotransferase 46 U/L (6-50); Albumin Level 2.6 g/dL (3.5-5.1); Alkaline Phosphatase 33 U/L (38-126); Anion Gap -4 mmol/L (8-16); Aspartate Amino Transferase 45 U/L (17-59); Bilirubin,Total 1.1 mg/dL (0.2-1.3); Blood Urea Nitrogen 41 mg/dL (9-20); Calcium 7.8 mg/dL (8.4-10.2); Carbon Dioxide 38 mmol/L (22-30); Chloride 104 mmol/L (98-107); Estimated CRCL calculation 127 ml/min; Estimated Glomerular Filt Rate > 60; Glucose 172 mg/dL (65-110); Potassium 5.9 mmol/L (3.4-5.0); Sodium 138 mmol/L (137-145)
[2023-01-04 05:24] LABS: Platelet Estimate Adequate (Adequate); Poikilocytosis 1+ (NORMAL)
[2023-01-04 05:25] LABS: Anisocytosis 1+ (NORMAL); Schistocytes None Seen (NORMAL)
[2023-01-04] MEDS: BUDESONIDE RESPULE NEB 0.5 MG/2 ML AMP INHALATION ×2 (08:16→20:47)
[2023-01-04] MEDS: ALBUTEROL SULFATE NEB 2.5 MG/3 ML INH INHALATION ×4 (08:17→20:47)
[2023-01-04 08:58] LABS: Glucose Point of Care 166 mg/dl (65-105)
[2023-01-04] MEDS: CHOLECALCIFEROL 1,000 UNITS TABLET 2000 UNITS PO (09:10)
[2023-01-04] MEDS: OMEGA 3 POLYUNSAT FATTY ACIDS 1 GM CAP PO (09:10)
[2023-01-04] MEDS: FUROSEMIDE 20 MG TABLET PO (09:11)
[2023-01-04] MEDS: ACETAMINOPHEN 500 MG TABLET 1000 MG PO ×2 (09:11→18:09)
[2023-01-04] MEDS: glipiZIDE 5 MG TABLET PO ×2 (09:11→18:10)
[2023-01-04] MEDS: GABAPENTIN 300 MG CAPSULE BY MOUTH ×3 (09:11→18:10)
[2023-01-04] MEDS: ZINC SULFATE 220 MG CAPSULE PO (09:11)
[2023-01-04] MEDS: dilTIAZem HCL CD 180 MG CAP.ER.24H PO (09:11)
[2023-01-04] MEDS: allopurinoL 300 MG TABLET PO (09:12)
[2023-01-04] MEDS: hydrALAZINE HCL 25 MG TABLET PO (09:12)
[2023-01-04] MEDS: METOPROLOL SUCCINATE EXT REL 100 MG TABCR PO (09:12)
[2023-01-04] MEDS: LOSARTAN POTASSIUM 100 MG TABLET PO (09:12)
[2023-01-04] MEDS: traZODone HCL 50 MG TABLET PO (09:13)
[2023-01-04] MEDS: EUCERIN CREAM 120 GM JAR 1 APPLIC TOPICAL ×2 (09:13→18:10)
--- NOTE | 2023-01-04 09:58 | PM.DS ---
DS: Admitting Diagnosis Discharge Date 01/04/23 Admitting Diagnosis sob DS: Discharge Diagnosis Discharge Diagnosis (1) Acute respiratory failure with hypoxia: Code(s): J96.01 - Acute respiratory failure with hypoxia Status: Acute Assessment and Plan: Patient was on room air on admission. CXR on admission showing mild congestive changes. Patient developed worsening hypoxia. Etiology unclear but felt COVID and/or bacterial PNA and/or CHF, blood and sputum cs negative Completed 7 day course of rocephin 12/28 and 5 day course of azithromycin 12/29 Continue COVID treatment, see below Will need home O2 eval prior to discharge, likely going to rehab on Wednesday (2) Sepsis: Code(s): A41.9 - Sepsis, unspecified organism Status: Acute Assessment and Plan: Present on admisison with tachycardia, fever and tachypnea. Fevers resolved. RSV and influenza negative. Consider also bacterial lung infection. Doubt fever related to UTI. He completed Rocephin and Azithromycin. Vanco was added but MRSA nasal swab negative. Urine culture 12/22 positive for proteus, sens to rocephin. (3) COVID-19: Code(s): U07.1 - COVID-19 Status: Acute Assessment and Plan: Patient diagnosed with COVID on 12/22 after having several days of cold symptoms prior to admission. He initially was on room air. He has developed O2 requirement since admission. Solumedrol started but changed to Decadron and Remdesivir added. Wean O2 as tolerated. Completed 5 day course of remdesivir 12/30 Decadron started 12/27, d/c 01/05 after 10 doses (4) CHF (congestive heart failure): Code(s): I50.9 - Heart failure, unspecified Status: Acute Assessment and Plan: As above. BNP was 4500. Echocardiogram showed EF of 61% with indeterminate diastolic function. His right ventricular mildly enlarged and hypokinetic. Patient with acute diastolic CHF related to AFib/RVR and sepsis. Probably has underlying right sided failure as well. Repeat BNP improved to 1670. Essentially euvolemic at this time, monitor, IV lasix d/c, no oral diuresis cont at this time Will initiate Lasix 20 mg p.o. daily at discharge, 1st dose 3 AM (5) Pneumonia: Code(s): J18.9 - Pneumonia, unspecified organism Status: Acute Assessment and Plan: Resolved, s/p abx course with rocephin + azithro (6) Atrial fibrillation: Code(s): I48.91 - Unspecified atrial fibrillation Status: Chronic Assessment and Plan: Patient with chronic AFib and is on Coumadin for anticoagulation and metoprolol 50mg TID for rate control. EKG on admission showing AFib with HR 103 and Rt BBB. HR worsened; IV metoprolol 5 mg with no improvement. He was given 20mg bolus and started on a Diltiazem drip and moved to the IMU. Now transitioned to oral Diltiazem. HR better controlled. Monitor on tele. INR 2.5 today 01/03 Restarted Coumadin home dose 01/01, continue (7) Urinary tract infection: Code(s): N39.0 - Urinary tract infection, site not specified Status: Acute Assessment and Plan: UA noted. Rocephin 1gm started on 12/22. Urine culture growing Proteus sensitive to Rocephin. Still with fevers so Rocephin increased to 2 g IV q 24 hrs on 12/25. He completed a 7 day course of abx. (8) Rhabdomyolysis: Code(s): M62.82 - Rhabdomyolysis Status: Acute Assessment and Plan: TCK 5444 on admission. Sodus rhabdomyolysis related to viral etiology from COVID. Not on a statin at home. UA showing 3+ blood but no RBCs. Repeat TCK trending down and now 434. Was on IV fluids but since have stopped. Renal function stable. Essentially resolved (9) Obstructive sleep apnea: Code(s): G47.33 - Obstructive sleep apnea (adult) (pediatric) Status: Chronic Assessment and Plan: Continue BiPAP and wean to night use and with naps. (10) Elevated LFTs: Code(s): R79.89 - Other specified abno
[2023-01-04] MEDS: traMADol HCL (*CRX) 50 MG TABLET PO (10:35)
[2023-01-04 11:41] LABS: Glucose Point of Care 219 mg/dl (65-105)
[2023-01-04] MEDS: INSULIN ASPART (*BKC) 100 UNITS/ML SUB-Q (11:45)
[2023-01-04] MEDS: NEOMYCIN/POLYMYXIN/BACITRACIN OINTMENT PACKET 1 PACKET (12:49)
[2023-01-04 13:35] LABS: EDCOVIDSCREEN Negative (Negative)
[2023-01-04 17:05] LABS: Glucose Point of Care 176 mg/dl (65-105)
[2023-01-04] MEDS: WARFARIN (*PBKC) 4 MG TABLET 8 MG PO (17:30)
[2023-01-04] MEDS: WARFARIN (*PBKC) 3 MG TABLET 6 MG PO (18:55)
[2023-01-04] MEDS: INSULIN GLARGINE (*BKC) 100 UNITS/ML 6 UNITS SUB-Q (20:41)
[2023-01-04 20:49] LABS: Glucose Point of Care 241 mg/dl (65-105)
[2023-01-05] VITALS (8 sets, daily range): BP systolic 128–139; BP diastolic 68–80; PULSE 83–92; RESP 14–20; TEMP 36.6–36.7; O2SAT 94–97
[2023-01-05] MEDS: ACETAMINOPHEN 500 MG TABLET 1000 MG PO ×2 (00:12→09:33)
[2023-01-05] MEDS: ALBUTEROL SULFATE NEB 2.5 MG/3 ML INH INHALATION ×2 (07:25→11:10)
[2023-01-05] MEDS: BUDESONIDE RESPULE NEB 0.5 MG/2 ML AMP INHALATION (07:25)
[2023-01-05 08:28] LABS: Glucose Point of Care 152 mg/dl (65-105)
[2023-01-05] MEDS: OMEGA 3 POLYUNSAT FATTY ACIDS 1 GM CAP PO (09:28)
[2023-01-05] MEDS: traZODone HCL 50 MG TABLET PO (09:28)
[2023-01-05] MEDS: dilTIAZem HCL CD 180 MG CAP.ER.24H PO (09:28)
[2023-01-05] MEDS: CHOLECALCIFEROL 1,000 UNITS TABLET 2000 UNITS PO (09:29)
[2023-01-05] MEDS: FUROSEMIDE 20 MG TABLET PO (09:30)
[2023-01-05] MEDS: ZINC SULFATE 220 MG CAPSULE PO (09:30)
[2023-01-05] MEDS: GABAPENTIN 300 MG CAPSULE BY MOUTH ×2 (09:31→12:59)
[2023-01-05] MEDS: METOPROLOL SUCCINATE EXT REL 100 MG TABCR PO (09:31)
[2023-01-05] MEDS: DEXAMETHASONE 2 MG TABLET 6 MG PO (09:31)
[2023-01-05] MEDS: allopurinoL 300 MG TABLET PO (09:31)
[2023-01-05] MEDS: glipiZIDE 5 MG TABLET PO (09:31)
[2023-01-05] MEDS: hydrALAZINE HCL 25 MG TABLET PO (09:31)
[2023-01-05] MEDS: LOSARTAN POTASSIUM 100 MG TABLET PO (09:31)
[2023-01-05] MEDS: EUCERIN CREAM 120 GM JAR 1 APPLIC TOPICAL (09:32)
[2023-01-05 12:01] LABS: Glucose Point of Care 195 mg/dl (65-105)
--- NOTE | 2023-01-05 12:08 | PCNWS ---
Weekly nutritional screen. Patient is tolerating current heart healthy diet with adequate intake 100% of all meals. No weight loss reported. No nutritional needs at this time.
== END 2023-01-05 14:25 | DRG 177 ==
LOC: ANHED 14:51 → ANH2MED 15:37 → ANHIMU 12-25 14:39 → ANH2MED 01-01 16:17
PROVIDERS: Family Medicine; Internal Medicine; Nurse Practitioner Family; Physician Assistant; Admitting Provider Internal Medicine; Emergency Provider Emergency Medicine; PCP Internal Medicine; Visit Provider Student in an Organized Health Care Education/Training Program
DX: U07.1 COVID-19 (principal); A41.9 Sepsis, unspecified organism; I50.31 Acute diastolic (congestive) heart failure; R65.20 Severe sepsis without septic shock; J18.9 Pneumonia, unspecified organism; J96.01 Acute respiratory failure with hypoxia; I48.20 Chronic atrial fibrillation, unspecified; N39.0 Urinary tract infection, site not specified; M62.82 Rhabdomyolysis; Z68.43 Body mass index [BMI] 50.0-59.9, adult; G47.33 Obstructive sleep apnea (adult) (pediatric); E11.9 Type 2 diabetes mellitus without complications; I89.0 Lymphedema, not elsewhere classified; E66.01 Morbid (severe) obesity due to excess calories; E80.6 Other disorders of bilirubin metabolism; Z86.718 Personal history of other venous thrombosis and embolism; Z79.01 Long term (current) use of anticoagulants; Z87.891 Personal history of nicotine dependence; Z79.84 Long term (current) use of oral hypoglycemic drugs
CPT/HCPCS: 36415; 36569; 36600; 71045; 73502; 80048; 80053; 80076; 80202; 81001; 82040; 82550; 82805; 82948; 83036; 83605; 83735; 83880; 84100; 84460; 85025; 85027; 85610; 85730; 87040; 87070; 87077; 87081; 87086; 87088; 87186; 87205; 87426; 87449; 87637; 87899; 92610; 93005; 94002; 94640; 94660; 96361; 96365; 96374; 96375; 97110; 97161; 97166; 97530; 97535; 99285; A9270; C1751; C8929; C9803; G0378; J0248; J0456; J0696; J1100; J1815; J1940; J2920; J3370; J3475; J7030; J7050; J8540; Q9957

== ENCOUNTER 2023-01-14 12:43 | Emergency (ER) | payer OTHER, SELFPAY ==
[2023-01-14] VITALS (84 sets, daily range): BP systolic 71–111; BP diastolic 31–78; PULSE 63–101; RESP 14–34; TEMP 34–37; O2SAT 95–100
--- NOTE | ~2023-01-14 | XR_ITS ---
EXAMINATION: XR chest port-a-cath/central INDICATION: Central line insertion TECHNIQUE: Portable AP chest at 1432 hours COMPARISON: 12/28/2022 FINDINGS: A right internal jugular central venous catheter is been inserted which ends with its tip p roximal right atrium. There is no pneumothorax. Cardiomegaly is noted. Diffuse interstitial and airsp celio opacities persist with slight improved. There is a small left pleural effusion. IMPRESSION: 1. Right internal jugular catheter ending with its tip in the proximal right atrium. No pneumothorax. 2. Diffuse lung disease with interval improvement, consistent with atelectasis versus pneumonia versu s pulmonary edema. 3. Cardiomegaly. Reviewed, dictated and finalized at location L. IMPRESSION: 1. Right internal jugular catheter ending with its tip in the proximal right at rium. No pneumothorax. 2. Diffuse lung disease with interval improvement, consistent with atelectasis versus pneumonia versus pulmonary edema. 3. Cardiomegaly.
--- NOTE | ~2023-01-14 | CT_ITS ---
EXAMINATION: CT abdomen pelvis w con DATE: 01/14/2023 16:01 INDICATION: Testicular and pannus pain. TECHNIQUE: Computed tomography (CT) of the abdomen and pelvis was performed with 100 mL Omnipaque 350 intravenous contrast. Automated exposure control and iterative reconstruction technique were employe d. The dose-length product was 2828.24 mGy-cm. COMPARISON: Pelvis CT 03/09/2020 FINDINGS: The visualized portions of the lung bases demonstrates mild atelectasis. There are small pl eural effusions. Cardiomegaly is noted. There are coronary artery calcifications. There is a small pe ricardial effusion. There is a catheter tip in right atrium. The liver demonstrates hypertrophy of le ft lateral segment and surface nodularity, consistent with cirrhosis. Calcifications in the liver are consistent with old granulomatous disease. The spleen is mildly enlarged. There are gallstones in th e gallbladder, which is normal in size. The pancreas and adrenal glands are normal. There is cortical thinning of the kidneys. There is a 16 mm stone in right kidney. Prostate is mildly enlarged. There is a Todd catheter in expected position. There is liquid stool in the colon suggesting diarrhea. The appendix is normal. There is calcified atherosclerosis of the aorta and many of the other arteries. There is prominent fat in the inguinal canals that may be hernias. There is skin thickening and subcu taneous fat stranding in the inferior pannus. There is a mildly enlarged left inguinal lymph node, li rachna reactive. There is enlargement of left adductor longus, adductor brevis, and adductor alma mus cles. There is severe lumbar spondylosis. There is a chronic compression fracture of L1. There is mod erate thoracic spondylosis. IMPRESSION: 1. Skin thickening and subcutaneous fat stranding in the inferior pannus, consistent with inflammatio n versus edema. 2. Mildly enlarged left inguinal lymph node, likely reactive. 3. Asymmetric enlargement of left adductor longus, adductor brevis, and adductor alma muscles, cons istent with strains versus myositis. 4. Small pleural effusions. 5. Cirrhosis of the liver. 6. Small pericardial effusion. Reviewed, dictated and finalized at location A. IMPRESSION: 1. Skin thickening and subcutaneous fat stranding in the inferior pannus, consi stent with inflammation versus edema. 2. Mildly enlarged left inguinal lymph node, likely reactive. 3. Asymmetric enlargement of left adductor longus, adductor brevis, and adducto r alma muscles, consistent with strains versus myositis. 4. Small pleural effusions. 5. Cirrhosis of the liver. 6. Small pericardial effusion.
--- NOTE | 2023-01-14 13:35 | ED.GIBLEED ---
HPI - GI Bleed General Chief complaint: GI Bleed Stated complaint: increased inr, bloody stools Time Seen by Provider: 01/14/23 13:12 History of Present Illness HPI Narrative: This is a 77-year-old male sent from his halfway with GI bleeding and testicular pain. The patient is not entirely sure what is going on, but notes the pain in his pannus and testicles for the past 2 days. He complains of some chest tightness but denies cough or other shortness of breath Related Data Home Medications Medication Instructions Recorded Confirmed losartan 100 mg tablet 100 mg PO DAILY 02/11/20 12/22/22 ascorbate calcium-bioflavonoid 1 tablet PO DAILY 02/12/20 12/22/22 1,000 mg-200 mg tablet ([place]-C with Bioflavonoids) aspirin 81 mg tablet,delayed 81 mg PO DAILY 02/12/20 12/22/22 release (Adult Low Dose Aspirin) saw palm 160 mg-vit E 100 1 tablet PO DAILY 10/17/20 12/22/22 unit-selen 100 fkj-rsvx-ptcxkv-pygeum tablet ([facility]) warfarin 4 mg tablet ([place]) See Rx Instructions PO .COMPLEX 10/17/20 12/22/22 cholecalciferol (vitamin D3) 50 50 mcg PO DAILY 12/19/20 12/22/22 mcg (2,000 unit) capsule zinc 50 mg tablet 50 mg PO DAILY 07/03/21 12/22/22 Allergies Allergy/AdvReac Type Severity Reaction Status Date / Time amiodarone Allergy Severe Hives / Verified 12/22/22 10:06 Red Face Review of Systems Review of Systems: CONSTITUTIONAL: Denies fever, chills, or sweats. EYES: Denies visual changes, redness, or discharge. ENT: Denies rhinorrhea, congestion, sore throat, or otalgia. CARDIOVASCULAR: Chest pressure denies palpitations, or edema. RESPIRATORY: Denies cough or dyspnea. GASTROINTESTINAL: GI bleed denies abdominal pain, nausea, vomiting, or diarrhea. GENITOURINARY: Denies dysuria or hematuria. SKIN: Denies rash or itching. MUSCULOSKELETAL: Denies back pain, joint pain, or myalgia. NEUROLOGIC: Denies headache, numbness, dizziness, or weakness. PSYCHIATRIC: Denies anxiety or depression. PMFSH Past Medical History Medical History Arthritis Atrial fibrillation Since 2009; on chronic anticoagulation with Coumadin. 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 Christopher Benign prostatic hyperplasia Chronic acquired lymphedema Chronic anticoagulation Deep vein thrombosis of right lower extremity (2000) Gout Hard of hearing Hyperlipidemia Morbid obesity Obstructive sleep apnea Sleep study in 2009 with inadequate titration of CPAP and bilevel support due to poor sleep efficacy. The patient never went back for repeat sleep study. Type 2 diabetes mellitus Surgical History Surgical History History of bilateral knee replacement Left in 1999. Right in May 2006. History of cardioversion Family History Family History Father , At age 69 Acute myocardial infarction Mother , In her 80s Cerebral aneurysm Brainstem aneurysm Social History Social History Social History: Surrogate medical decision maker: Kelsi Cardoso, spouse. Code status: Full code. Smoking status: Former smoker Second hand tobacco smoke exposure: No Alcohol intake: never Substance use: never Substance use type: does not use Lack of Transportation: No Lack of Food: Never True Current Housing: I Have Housing Concerned About Future Housing: No Difficulty Paying Gas/Electric Bills: No Difficulty Paying for Meds: No Currently Unemployed: No Education: Associate Degree Difficulty w/ Childcare or Family Care: No Living arrangements: with family Additional living arrangements comments: Lives with in [place]. 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
[2023-01-14 13:37] LABS: Basophils Percent Auto 0.1 % (0.2-1.2); Eosinophils Percent Auto 0.2 % (0-4.4); Hematocrit 30.1 % (42.0-52.0); Hemoglobin 9.2 g/dL (14.0-18.0); Immature Granulocyte Absolute 0.06 K/mm3 (0.00-0.031); Immature Granulocyte Percent A 0.5 % (0-0.5); Immature Platelet Fraction Pct 3.4 % (0.9-11.2); Lymphocytes Percent Auto 6.5 % (18.3-44.2); Mean Corpuscular HGB Conc 30.6 g/dl (32-36); Mean Corpuscular Hemoglobin 34.7 pg (26-34); Mean Corpuscular Volume 113.6 fl (80-100); Mean Platelet Volume 11.3 fl (7.4-10.4); Monocytes Absolute Auto 0.4 K/mm3 (0.1-0.6); Monocytes Percent Auto 2.9 % (2.6-8.5); Neutrophils Percent Auto 89.8 % (45.5-73.1); Nucleated Red Blood Cells Perc 0.2 % (0.0-0.2); Platelet Count Result 84 k/mm3 (150-375); Red Blood Count 2.65 M/mm3 (4.6-6.20); Red Cell Distribution Width 22.5 % (11.5-14.5); White Blood Count 12.3 K/mm3 (4.5-10.0)
[2023-01-14 13:45] LABS: Alanine Aminotransferase 56 U/L (6-50); Albumin Level 2.5 g/dL (3.5-5.1); Alkaline Phosphatase 47 U/L (38-126); Anion Gap 3 mmol/L (8-16); Aspartate Amino Transferase 57 U/L (17-59); Bilirubin,Total 1.4 mg/dL (0.2-1.3); Blood Urea Nitrogen 76 mg/dL (9-20); Calcium 7.9 mg/dL (8.4-10.2); Carbon Dioxide 29 mmol/L (22-30); Chloride 111 mmol/L (98-107); Estimated CRCL calculation 68 ml/min; Estimated Glomerular Filt Rate 54; Glucose 66 mg/dL (65-110); Sodium 143 mmol/L (137-145)
[2023-01-14 13:50] LABS: Partial Thromboplastin Time 93.4 SECONDS (22.3-36.8); Prothrombin Time 115.5 Seconds (11.1-14.7)
[2023-01-14] MEDS: PANTOPRAZOLE SODIUM IV 40 MG VIAL 80 MG IV PUSH (13:50)
[2023-01-14] MEDS: LACTATED RINGERS 2,000 ML 999 ML IV CONT (13:50)
[2023-01-14 14:01] LABS: Troponin I 0.043 ng/mL (0.000-0.034)
[2023-01-14 14:04] LABS: Anisocytosis 1+ (NORMAL); Platelet Estimate Adequate (Adequate); Schistocytes None Seen (NORMAL)
[2023-01-14 14:07] LABS: INR 16.7
[2023-01-14] MEDS: TUBING, BLOOD SET 1 EACH XX (14:19)
[2023-01-14] MEDS: SODIUM CHLORIDE 0.9% IV 250 ML 30 ML IV CONT (14:19)
[2023-01-14 14:20] LABS: Lactic Acid Reflex 3.4 mmol/L (0.7-2.0)
[2023-01-14] MEDS: HUMAN PROTHROMBIN COMPLEX(PCC) 5,000 UNITS in PREMIXIV 0 ML 504 UNITS IV CONT (15:28)
[2023-01-14 15:37] LABS: Appearance Urine Clear (Clear); Bacteria Urine None Seen /hpf; Bilirubin Urine Negative (Negative); Blood Urine Negative (Negative); Color Urine Yellow (Yellow); Glucose Urine UA Negative (Negative); Ketones Urine Negative (Negative); Leukocyte Esterase Ur Trace LEU/UL (Negative); Need Manual Microscopic Reviewed; Nitrate Urine Negative (Negative); Protein Urine Negative (Negative); RBC Urine 0-2 /hpf (0-2); Specific Grav Ur 1.017 (1.001-1.035); Squamous Epithelial Cell Urine None seen /hpf (Few); Urobilinogen Urine 0.2 mg/dL (<2.0); WBC Urine 0-5 /hpf
[2023-01-14 15:46] LABS: Add Urine Microscopic? YES
[2023-01-14] MEDS: NOREPINEPHRINE 8 MG/D5W 250 ML 8 MG/250 ML BAG 15 MG IV CONT (16:13)
[2023-01-14] MEDS: CLINDAMYCIN 900 MG/D5W 50 ML 900 MG/50 ML PIGGYBACK 50 MG IVPB (16:21)
[2023-01-14 17:09] LABS: Reflex Lactic Acid Yes or No Add Lactic
[2023-01-14] MEDS: SODIUM CHLORIDE 0.9% IV 1,000 ML 999 ML IV CONT ×2 (17:09→19:54)
[2023-01-14 17:45] LABS: Lactic Acid 3.8 mmol/L (0.7-2.0)
[2023-01-14 18:24] LABS: Hematocrit 32.2 % (42.0-52.0); Hemoglobin 10.2 g/dL (14.0-18.0)
[2023-01-14] MEDS: SODIUM CHLORIDE 0.9% IV 500 ML 150 ML IV CONT (18:26)
[2023-01-14 18:36] LABS: INR 1.5; Prothrombin Time 17.7 Seconds (11.1-14.7)
--- NOTE | 2023-01-14 18:43 | ECG_ITS ---
Measurements Intervals Eva Rate: 71 P: NC: 0 QRS: 17 QRSD: 146 T: -29 QT: 451 QTc: 492 Interpretive Statements ATRIAL FIBRILLATION RIGHT BUNDLE BRANCH BLOCK ABNORMAL ECG COMPARED TO ECG 12/25/2022 11:25:19 VENTRICULAR RESPONSE TO ATRIAL FIBRILLATION IS NOW CONTROLLED Electronically Signed On 01-15-2023 7:49:01 CDT by Aleks Christopher M.D.
--- NOTE | 2023-01-14 20:00 | PC.NURSE ---
RN spoke with [facility] transfer Nicki, given pt triage information. States pt is on the [facility] waitlist. The accepting MD is Hernando. States pt could wait all night for a bed.
--- NOTE | 2023-01-14 22:23 | PC.NURSE ---
Pt accepted at [facility] room #218. Spoke with Thomas GuevaraLegal Executive Assistant. RN to call Karo FONTANEZ to give report. Phone number to reach RN [phone] ext. [phone]
[2023-01-15] VITALS: PULSE 93; RESP 22; TEMP 37; TEMP 37.1; O2SAT 94
[2023-01-15 00:01] VITALS: BP 93/57; PULSE 83; RESP 20; TEMP 37.1; O2SAT 98
[2023-01-15 00:24] LABS: Troponin I 0.052 ng/mL (0.000-0.034)
== END 2023-01-15 00:45 | disposition short-term general hospital (02) ==
PROVIDERS: Emergency Medicine; Emergency Provider Preventive Medicine Aerospace Medicine; PCP Internal Medicine
DX: K92.2 Gastrointestinal hemorrhage, unspecified (principal); I95.9 Hypotension, unspecified; E78.5 Hyperlipidemia, unspecified; I48.91 Unspecified atrial fibrillation; E11.9 Type 2 diabetes mellitus without complications; N40.0 Benign prostatic hyperplasia without lower urinary tract symptoms; I89.0 Lymphedema, not elsewhere classified; E66.01 Morbid (severe) obesity due to excess calories; Z68.42 Body mass index [BMI] 45.0-49.9, adult; G47.33 Obstructive sleep apnea (adult) (pediatric); M10.9 Gout, unspecified; Z86.718 Personal history of other venous thrombosis and embolism; Z96.653 Presence of artificial knee joint, bilateral; Z87.891 Personal history of nicotine dependence; Z79.84 Long term (current) use of oral hypoglycemic drugs; Z79.82 Long term (current) use of aspirin; Z79.01 Long term (current) use of anticoagulants; I45.10 Unspecified right bundle-branch block; K74.60 Unspecified cirrhosis of liver; R93.6 Abnormal findings on diagnostic imaging of limbs; I51.7 Cardiomegaly; J98.4 Other disorders of lung
CPT/HCPCS: 36415; 36430; 36556; 51702; 74177; 80053; 81001; 83605; 84484; 85014; 85018; 85025; 85055; 85610; 85730; 86850; 86900; 86901; 86920; 86923; 93005; 96361; 96365; 96366; 96367; 96368; 96375; 99291; C1751; C9113; J0743; J3370; J7030; J7040; J7050; J7120; J7168; P9016; Q9967